=== PATIENT | male | born 1975 | race Caucasian/White ===

== ENCOUNTER 2020-11-08 11:40 | Inpatient (IN) | payer OTHER, MEDICAID, SELFPAY ==
[2020-11-08] VITALS (13 sets, daily range): BP systolic 107–135; BP diastolic 70–88; PULSE 57–84; RESP 10–28; TEMP 35.7–36.9; O2SAT 88–96; BMI 35.9
--- NOTE | 2020-11-08 12:13 | DI.RAD.S_ITS ---
PROCEDURE: XR CHEST 1V INDICATIONS: flu-like symptoms TECHNIQUE: One view of the chest was acquired. COMPARISON: [facility], CR, XR CHEST 1VW, 07/05/2015, 9:18. [facility], CR, XR CHEST 1VW (PORTABLE), 07/07/2015, 5:34. [facility], CR, XR CHEST 1 VIEW, 11/14/2018, 19:31. FINDINGS: Surgical changes and devices: None. Lungs and pleura: Subtle peripheral infiltrates bilaterally. No pleural effusions or pneumothorax. Mediastinum: Mediastinal contours appear normal. Heart size is normal. Bones and chest wall: No suspicious bony lesions. Overlying soft tissues appear unremarkable. IMPRESSION: Subtle peripheral infiltrates bilaterally suspicious for atypical pneumonia. Dictated by: Laurie Zelaya M.D. on 11/08/2020 at 12:39 Approved by: Laurie Zelaya M.D. on 11/08/2020 at 12:41
[2020-11-08 12:48] LABS: COVID19 -Nasal RAPID POSITIVE (Negative)
[2020-11-08 13:14] LABS: Add Manual Diff / Slide Review NO; Basophils Absolute Auto 0 /uL (0-100); Basophils Percent Auto 0.7 % (0-2); Eosinophils Absolute Auto 0 /uL (0-450); Eosinophils Percent Auto 0.5 % (2-4); Hemoglobin 15.1 g/dL (13.5-17.5); Lymphocytes Absolute Auto 1000 /uL (1100-4500); Mean Corpuscular HGB Conc 34.2 % (30-36); Mean Corpuscular Hemoglobin 28.9 PG (26-34); Mean Corpuscular Volume 84.6 fL (80-100); Monocytes Absolute Auto 300 /uL (0-900); Monocytes Percent Auto 11.3 % (3-14); Neutrophils Absolute Auto 1100 /uL (1500-7000); Neutrophils Percent Auto 47.5 % (50-75); Platelet Count 116 X10^3/uL (150-400); Red Blood Cell Count 5.21 X10^6/uL (4.5-5.9); Red Cell Distribution Width 13.6 % (11.6-14.8); White Blood Cell Count 2.4 X10^3/uL (4.5-11.0)
[2020-11-08] MEDS: REMDESIVIR 200 MG in SODIUM CHLORIDE 0.9% 210 ML 250 ML IV (13:24)
[2020-11-08] MEDS: DEXAMETHASONE 10 MG/ML VIAL 6 MG IV (13:25)
[2020-11-08 13:29] LABS: D Dimer 290 ng/mL (<230)
[2020-11-08 13:31] LABS: Creatine Kinase 443 U/L (55-170); Lactate (Lactic Acid) 0.7 mmol/L (0.7-2.1)
[2020-11-08 13:33] LABS: Alanine Aminotransferase 27 IU/L (<50); Albumin 3.9 g/dL (3.5-5.0); Alkaline Phosphatase 98 U/L (38-126); Aspartate Aminotransferase 87 IU/L (17-59); BUN Creatinine Ratio 9.7 (6-22); Bilirubin Total 0.7 mg/dL (0.2-1.3); Blood Urea Nitrogen 19 mg/dL (9-20); C-Reactive Protein Quant 2.1 mg/dL (<1.0); Calcium 8.1 mg/dL (8.4-10.2); Carbon Dioxide 25 mmol/L (22-32); Chloride 105 mmol/L (98-107); Creatine Kinase 438 U/L (55-170); Globulin 3.9 g/dL (1.7-4.1); Glucose 94 mg/dL (70-100); HEMOLYSIS < 15 (0-50); Lactate Dehydrogenase 595 U/L (313-618); Potassium 3.9 mmol/L (3.4-5.1); Sodium 137 mmol/L (137-145); Total Protein 7.8 g/dL (6.3-8.2)
[2020-11-08 13:34] LABS: INR 1.1 (0.9-1.3); Prothrombin Time 12.8 SECONDS (10.1-12.7)
[2020-11-08 13:37] LABS: PTT Partial Thromboplastin Tim 37 SECONDS (26.4-36.2)
[2020-11-08 13:42] LABS: Troponin I < 0.012 ng/mL (0.01-0.034)
[2020-11-08 13:46] LABS: CKMB % Relative Index 0.8 % (1.5-5.0); Creatine Kinase MB 3.62 ng/mL (<2.37)
[2020-11-08] MEDS: ACETAMINOPHEN 325 MG TABLET 650 MG PO (13:56)
[2020-11-08 14:05] LABS: Ferritin 159 ng/mL (18-464)
--- NOTE | 2020-11-08 15:25 | ED_ITS ---
HPI - URI/Sore Throat <Minoo Kaur PA-C - Last Filed: 11/08/20 20:28> General Chief Complaint: Upper Respiratory Symptoms Stated Complaint: sob/chills/headach/dizzy/diarrhea x7 days Time Seen by Provider: 11/08/20 12:00 Source: patient Mode of arrival: Ambulatory Limitations: no limitations History of Present Illness HPI Narrative: 44-year-old male without PMH, COVID unvaccinated who presents to the clinic complaining of 7 day history of cough, chills, diarrhea, chest congestion, headache, dizziness, decreased taste, mild shortness of breath, and occasional chest pain with coughing. Denies any known positive sick exposures. Overall states that symptoms have not worsened, however have not improved. at home has similar symptoms. Denies chest pain, shortness of breath, palpitations, difficulty breathing, vomiting, or abdominal pain. Related Data Home Medications Medication Instructions Recorded Confirmed dextroamphetamine-amphetamine ER 20 mg PO DAILY 11/08/20 11/08/20 20 mg 24hr capsule,extend release aripiprazole 15 mg tablet (Abilify) 15 mg PO DAILY 11/09/20 11/09/20 buprenorphine 12 mg-naloxone 3 mg 1 film BUCCAL BID 11/09/20 11/09/20 sublingual film (Suboxone) buprenorphine 12 mg-naloxone 3 mg 1 film SUBLINGUAL DAILY 11/09/20 11/09/20 sublingual film (Suboxone) citalopram 40 mg tablet 40 mg PO DAILY 11/09/20 11/09/20 clonazepam 0.5 mg tablet 0.25 mg PO BID 11/09/20 11/09/20 hydroxyzine HCl 50 mg tablet 50 mg PO TID PRN 11/09/20 11/09/20 mirtazapine 45 mg tablet 45 mg PO BEDTIME 11/09/20 11/09/20 prazosin 1 mg capsule 1 mg PO BEDTIME 11/09/20 11/09/20 Review of Systems <Minoo Kaur PA-C - Last Filed: 11/08/20 20:28> Review of Systems Narrative: General: denies fever, reports chills Head/Neck: Reports headache, denies neck pain Eyes: denies visual changes, eye pain Cardio: denies chest pain, palpitations Respiratory: Reports shortness of breath, reports cough GI: denies abdominal pain, nausea, vomiting, or reports diarrhea : denies dysuria, hematuria MSK: denies joint pain, muscle weakness Skin: denies rash, itching Neuro: denies numbness, tingling Patient History <Minoo Kaur PA-C - Last Filed: 11/08/20 20:28> Medical History (Updated 11/08/20 @ 18:34 by Jewels Jaeger MD) ADHD Depression Opioid use disorder Psychiatric disorder Social History household members: spouse Smoking Status: Never smoker Smoking Status: Never smoker tobacco type: smokeless tobacco Substance Use Type: does not use Exam <Minoo Kaur PA-C - Last Filed: 11/08/20 20:28> Narrative Exam Narrative: Independently reviewed vitals signs and nursing notes. Initially hypoxic with 88% on room air, improved to >94% with 2L O2. General: Awake, alert, nontoxic, no cardiorespiratory distress Head/Neck: Atraumatic, neck full range of motion Eyes: EOMI, conjunctiva normal Nose: nares patent, no rhinorrhea Mouth/Throat: moist mucus membranes, posterior pharynx normal, no oral lesions Cardio: Regular rate and rhythm, no peripheral edema Respiratory: CTAB unlabored without wheezing, stridor, or rales. No retractions. GI: Abdomen soft, nontender MSK: Moves all extremities, neurovascularly intact Skin: Normal capillary refill, no rash Neuro: Normal speech and cognition, normal gait Initial Vital Signs Initial Vital Signs: Vital Signs Temperature 98.4 F 11/08/20 12:07 Pulse Rate 79 11/08/20 12:07 Respiratory Rate 11/08/20 12:07 Blood Pressure 117/80 11/08/20 12:07 Pulse Oximetry 88 L 11/08/20 12:07 <Darleen Davalos DO - Last Filed: 11/13/20 02:21> Initial Vital Signs Initial Vital Signs: Vital Signs Temperature 98.4 F 11/08/20 12:07 Pulse Rate 79 11/08/20 12:07 Respiratory Rate 20 11/08/20 12:07 Blood Pressure 117/80 11/08/20 12:07 Pulse Oximetry 88 L 11/08/20 12:07 Course <Minoo Kaur PA-C - Last Filed: 11/08/20 20:28> Orders Ordered: Discontinued Medications Acetaminophen (Acetaminophen 325 Mg Tablet) 650 mg PO NOW ONE Stop: 11/08/20 13:52 Last Admin: 11/08/20 13:56 Dose: 650 mg Documented by: ANGELICA Acetaminophen (Acetaminophen 325 Mg Tablet) 650 mg PO Q6HR PRN PRN Reason: Fever/Mild Pain (1-3) Last Admin: 11/09/20 03:01 Dose: 650 mg Documented by: CLAUDIA Al Hydrox/Mg Hydrox/Simethicone (Mag Hydrox/Alum/Simeth 30 Ml Udc) 30 ml PO Q6HR PRN PRN Reason: Dyspepsia Aripiprazole (Aripiprazole 10 Mg Tablet) 15 mg PO DAILY [facility] Last Admin: 11/11/20 07:52 Dose: 15 mg Documented by: Admin: 11/10/20 09:07 Dose: 15 mg Documented by: Admin: 11/09/20 08:34 Dose: 15 mg Documented by: ADOLPH Bisacodyl (Bisacodyl 10 Mg Supp) 10 mg NC DAILY PRN PRN Reason: Constipation Buprenorphine/Naloxone (Buprenorphine/Naloxone 8mg/2mg 1 Tab) 1 tab SL DAILY [facility] Last Admin: 11/11/20 07:52 Dose: 1 tab Documented by: Admin: 11/10/20 09:07 Dose: 1 tab Documented by: Admin: 11/09/20 10:00 Dose: 1 tab Documented by: ADOLPH Buprenorphine/Naloxone (Buprenorphine/Naloxone 8mg/2mg 1 Tab) 2 tab SL 1800 [facility] Last Admin: 11/10/20 17:03 Dose: 2 tab Documented by: Admin: 11/09/20 17:46 Dose: 2 tab Documented by: SABRINA Calcium Carbonate (Calcium Carbonate 500 Mg Tab) 1,000 mg PO Q4HR PRN PRN Reason: Dyspepsia Citalopram Hydrobromide (Citalopram 10 Mg Tablet) 40 mg PO DAILY [facility] Last Admin: 11/11/20 07:52 Dose: 40 mg Documented by: Admin: 11/10/20 09:08 Dose: 40 mg Documented by: Admin: 11/09/20 08:34 Dose: 40 mg Documented by: ADOLPH Clonazepam (Clonazepam 0.5 Mg Tablet) 0.5 mg PO BID [facility] Last Admin: 11/11/20 07:53 Dose: 0.5 mg Documented by: Admin: 11/10/20 21:08 Dose: 0.5 mg Documented by: Admin: 11/10/20 09:08 Dose: 0.5 mg Documented by: Admin: 11/09/20 20:56 Dose: 0.5 mg Documented by: Admin: 11/09/20 08:34 Dose: 0.5 mg Documented by: Admin: 11/08/20 20:56 Dose: 0.5 mg Documented by: ANDREW Dexamethasone (Dexamethasone 10 Mg/Ml Vial) 6 mg IV NOW ONE Stop: 11/08/20 12:54 Last Admin: 11/08/20 13:25 Dose: 6 mg Documented by: ANGELICA Dexamethasone (Dexamethasone 10 Mg/Ml Vial) 6 mg IV DAILY [facility] Last Admin: 11/11/20 10:07 Dose: Not Given Documented by: Admin: 11/10/20 09:08 Dose: 6 mg Documented by: Admin: 11/09/20 08:34 Dose: 6 mg Documented by: ADOLPH Docusate Sodium (Docusate 100 Mg Capsule) 100 mg PO BID [facility] Last Admin: 11/11/20 07:52 Dose: 100 mg Documented by: Admin: 11/10/20 21:08 Dose: 100 mg Documented by: Admin: 11/10/20 09:08 Dose: 100 mg Documented by: Admin: 11/09/20 20:56 Dose: 100 mg Documented by: Admin: 11/09/20 08:34 Dose: 100 mg Documented by: Admin: 11/08/20 20:56 Dose: 100 mg Documented by: ANDREW Enoxaparin Sodium (Enoxaparin 40 Mg/0.4 Ml Syringe) 40 mg SUBCUT BID [facility] Last Admin: 11/09/20 08:35 Dose: 40 mg Documented by: ADOLPH Enoxaparin Sodium (Enoxaparin 40 Mg/0.4 Ml Syringe) 40 mg SUBCUT DAILY [facility] Last Admin: 11/11/20 07:52 Dose: 40 mg Documented by: Admin: 11/10/20 09:09 Dose: 40 mg Documented by: ADOLPH Hydroxyzine Pamoate (Hydroxyzine Pamoate 25 Mg Capsule) 50 mg PO Q6HR PRN PRN Reason: Nausea Remdesivir 200 mg/ Sodium (Chloride) 250 mls @ 250 mls/hr IV NOW ONE Stop: 11/08/20 12:54 Last Infusion: 11/08/20 14:55 Dose: 0 mls/hr Documented by: Admin: 11/08/20 13:24 Dose: 250 mls/hr Documented by: ANGELICA Remdesivir 100 mg/ Sodium (Chloride) 250 mls @ 250 mls/hr IV DAILY [facility] Stop: 11/16/20 17:45 Last Admin: 11/11/20 10:05 Dose: Not Given Documented by: Infusion: 11/10/20 10:09 Dose: 250 mls/hr Documented by: Admin: 11/10/20 09:09 Dose: 250 mls/hr Documented by: Infusion: 11/09/20 20:49 Dose: 0 mls/hr Documented by: Admin: 11/09/20 14:40 Dose: 250 mls/hr Documented by: ADOLPH Sodium Chloride (Normal Saline 0.9%) 250 mls @ 21 mls/hr IV Q24H PRN PRN Reason: Flush Mirtazapine (Mirtazapine 15 Mg Tablet) 45 mg PO BEDTIME [facility] Last Admin: 11/10/20 21:08 Dose: 45 mg Documented by: Admin: 11/09/20 20:56 Dose: 45 mg Documented by: Admin: 11/08/20 20:57 Dose: 45 mg Documented by: ANDREW Naloxone HCl (Naloxone 0.4 Mg/Ml Vial) 0.2 mg IV Q2MIN PRN PRN Reason: Opiate Reversal Ondansetron HCl (Ondansetron 4 Mg/2 Ml Inj) 4 mg IV Q8HR PRN PRN Reason: Nausea And Vomiting Pantoprazole Sodium (Pantoprazole Dr 20 Mg Tablet) 20 mg PO 0600 [facility] Last Admin: 11/11/20 05:47 Dose: 20 mg Documented by: Admin: 11/10/20 05:30 Dose: 20 mg Documented by: Admin: 11/09/20 06:35 Dose: 20 mg Documented by: CLAUDIA Prazosin HCl (Prazosin 1 Mg Capsule) 1 mg PO BEDTIME [facility] Last Admin: 11/10/20 21:08 Dose: 1 mg Documented by: Admin: 11/09/20 21:19 Dose: Not Given Documented by: Admin: 11/08/20 20:59 Dose: 1 mg Documented by: ANDREW Sodium Chloride (Sodium Chloride 0.9% Flush) 10 ml IV PRN PRN PRN Reason: Flush Sodium Chloride (Sodium Chloride 0.9% Flush) 10 ml IV BID [facility] Last Admin: 11/11/20 07:55 Dose: 10 ml Documented by: Admin: 11/10/20 21:08 Dose: 10 ml Documented by: Admin: 11/10/20 09:10 Dose: 10 ml Documented by: ADOLPH Vital Signs Vital signs: Vital Signs - 8 hr 11/08/20 13:48 11/08/20 14:00 11/08/20 14:01 Pulse Rate 73 77 84 Respiratory Rate Blood Pressure 109/75 Pulse Oximetry 92 91 91 11/08/20 14:30 11/08/20 15:00 Pulse Rate 66 65 Respiratory Rate 15 10 L Blood Pressure 113/72 Pulse Oximetry 93 92 <Darleen Davalos DO - Last Filed: 11/13/20 02:21> Orders Ordered: Discontinued Medications Acetaminophen (Acetaminophen 325 Mg Tablet) 650 mg PO NOW ONE Stop: 11/08/20 13:52 Last Admin: 11/08/20 13:56 Dose: 650 mg Documented by: ANGELICA Acetaminophen (Acetaminophen 325 Mg Tablet) 650 mg PO Q6HR PRN PRN Reason: Fever/Mild Pain (1-3) Last Admin: 11/09/20 03:01 Dose: 650 mg Documented by: CLAUDIA Al Hydrox/Mg Hydrox/Simethicone (Mag Hydrox/Alum/Simeth 30 Ml Udc) 30 ml PO Q6HR PRN PRN Reason: Dyspepsia Aripiprazole (Aripiprazole 10 Mg Tablet) 15 mg PO DAILY [facility] Last Admin: 11/11/20 07:52 Dose: 15 mg Documented by: Admin: 11/10/20 09:07 Dose: 15 mg Documented by: Admin: 11/09/20 08:34 Dose: 15 mg Documented by: ADOLPH Bisacodyl (Bisacodyl 10 Mg Supp) 10 mg NC DAILY PRN PRN Reason: Constipation Buprenorphine/Naloxone (Buprenorphine/Naloxone 8mg/2mg 1 Tab) 1 tab SL DAILY [facility] Last Admin: 11/11/20 07:52 Dose: 1 tab Documented by: Admin: 11/10/20 09:07 Dose: 1 tab Documented by: Admin: 11/09/20 10:00 Dose: 1 tab Documented by: ADOLPH Buprenorphine/Naloxone (Buprenorphine/Naloxone 8mg/2mg 1 Tab) 2 tab SL 1800 [facility] Last Admin: 11/10/20 17:03 Dose: 2 tab Documented by: Admin: 11/09/20 17:46 Dose: 2 tab Documented by: SABRINA Calcium Carbonate (Calcium Carbonate 500 Mg Tab) 1,000 mg PO Q4HR PRN PRN Reason: Dyspepsia Citalopram Hydrobromide (Citalopram 10 Mg Tablet) 40 mg PO DAILY [facility] Last Admin: 11/11/20 07:52 Dose: 40 mg Documented by: Admin: 11/10/20 09:08 Dose: 40 mg Documented by: Admin: 11/09/20 08:34 Dose: 40 mg Documented by: ADOLPH Clonazepam (Clonazepam 0.5 Mg Tablet) 0.5 mg PO BID [facility] Last Admin: 11/11/20 07:53 Dose: 0.5 mg Documented by: Admin: 11/10/20 21:08 Dose: 0.5 mg Documented by: Admin: 11/10/20 09:08 Dose: 0.5 mg Documented by: Admin: 11/09/20 20:56 Dose: 0.5 mg Documented by: Admin: 11/09/20 08:34 Dose: 0.5 mg Documented by: Admin: 11/08/20 20:56 Dose: 0.5 mg Documented by: ANDREW Dexamethasone (Dexamethasone 10 Mg/Ml Vial) 6 mg IV NOW ONE Stop: 11/08/20 12:54 Last Admin: 11/08/20 13:25 Dose: 6 mg Documented by: ANGELICA Dexamethasone (Dexamethasone 10 Mg/Ml Vial) 6 mg IV DAILY [facility] Last Admin: 11/11/20 10:07 Dose: Not Given Documented by: Admin: 11/10/20 09:08 Dose: 6 mg Documented by: Admin: 11/09/20 08:34 Dose: 6 mg Documented by: ADOLPH Docusate Sodium (Docusate 100 Mg Capsule) 100 mg PO BID [facility] Last Admin: 11/11/20 07:52 Dose: 100 mg Documented by: Admin: 11/10/20 21:08 Dose: 100 mg Documented by: Admin: 11/10/20 09:08 Dose: 100 mg Documented by: Admin: 11/09/20 20:56 Dose: 100 mg Documented by: Admin: 11/09/20 08:34 Dose: 100 mg Documented by: Admin: 11/08/20 20:56 Dose: 100 mg Documented by: ANDREW Enoxaparin Sodium (Enoxaparin 40 Mg/0.4 Ml Syringe) 40 mg SUBCUT BID [facility] Last Admin: 11/09/20 08:35 Dose: 40 mg Documented by: ADOLPH Enoxaparin Sodium (Enoxaparin 40 Mg/0.4 Ml Syringe) 40 mg SUBCUT DAILY [facility] Last Admin: 11/11/20 07:52 Dose: 40 mg Documented by: Admin: 11/10/20 09:09 Dose: 40 mg Documented by: ADOLPH Hydroxyzine Pamoate (Hydroxyzine Pamoate 25 Mg Capsule) 50 mg PO Q6HR PRN PRN Reason: Nausea Remdesivir 200 mg/ Sodium (Chloride) 250 mls @ 250 mls/hr IV NOW ONE Stop: 11/08/20 12:54 Last Infusion: 11/08/20 14:55 Dose: 0 mls/hr Documented by: Admin: 11/08/20 13:24 Dose: 250 mls/hr Documented by: ANGELICA Remdesivir 100 mg/ Sodium (Chloride) 250 mls @ 250 mls/hr IV DAILY [facility] Stop: 11/16/20 17:45 Last Admin: 11/11/20 10:05 Dose: Not Given Documented by: Infusion: 11/10/20 10:09 Dose: 250 mls/hr Documented by: Admin: 11/10/20 09:09 Dose: 250 mls/hr Documented by: Infusion: 11/09/20 20:49 Dose: 0 mls/hr Documented by: Admin: 11/09/20 14:40 Dose: 250 mls/hr Documented by: ADOLPH Sodium Chloride (Normal Saline 0.9%) 250 mls @ 21 mls/hr IV Q24H PRN PRN Reason: Flush Mirtazapine (Mirtazapine 15 Mg Tablet) 45 mg PO BEDTIME [facility] Last Admin: 11/10/20 21:08 Dose: 45 mg Documented by: Admin: 11/09/20 20:56 Dose: 45 mg Documented by: Admin: 11/08/20 20:57 Dose: 45 mg Documented by: ANDREW Naloxone HCl (Naloxone 0.4 Mg/Ml Vial) 0.2 mg IV Q2MIN PRN PRN Reason: Opiate Reversal Ondansetron HCl (Ondansetron 4 Mg/2 Ml Inj) 4 mg IV Q8HR PRN PRN Reason: Nausea And Vomiting Pantoprazole Sodium (Pantoprazole Dr 20 Mg Tablet) 20 mg PO 0600 [facility] Last Admin: 11/11/20 05:47 Dose: 20 mg Documented by: Admin: 11/10/20 05:30 Dose: 20 mg Documented by: Admin: 11/09/20 06:35 Dose: 20 mg Documented by: CLAUDIA Prazosin HCl (Prazosin 1 Mg Capsule) 1 mg PO BEDTIME [facility] Last Admin: 11/10/20 21:08 Dose: 1 mg Documented by: Admin: 11/09/20 21:19 Dose: Not Given Documented by: Admin: 11/08/20 20:59 Dose: 1 mg Documented by: ANDREW Sodium Chloride (Sodium Chloride 0.9% Flush) 10 ml IV PRN PRN PRN Reason: Flush Sodium Chloride (Sodium Chloride 0.9% Flush) 10 ml IV BID [facility] Last Admin: 11/11/20 07:55 Dose: 10 ml Documented by: Admin: 11/10/20 21:08 Dose: 10 ml Documented by: Admin: 11/10/20 09:10 Dose: 10 ml Documented by: ADOLPH Vital Signs Vital signs: Vital Signs - 8 hr 11/08/20 13:48 11/08/20 14:00 11/08/20 14:01 Pulse Rate 73 77 84 Respiratory Rate Blood Pressure 109/75 Pulse Oximetry 92 91 91 11/08/20 14:30 11/08/20 15:00 Pulse Rate 66 65 Respiratory Rate 15 10 L Blood Pressure 113/72 Pulse Oximetry 93 92 MDM - URI/Sore Throat <Minoo Kaur PA-C - Last Filed: 11/08/20 20:28> Lab Data Result diagrams: 11/11/20 05:06 11/11/20 05:06 Labs: Lab Results 11/08/20 11/08/20 11/08/20 Range/Units 12:32 13:05 13:05 WBC 2.4 L (4.5-11.0) X10^3/uL RBC 5.21 (4.5-5.9) X10^6/uL Hgb 15.1 (13.5-17.5) g/dL Hct 44.0 (41-53) % MCV 84.6 (80-100) fL MCH 28.9 (26-34) PG MCHC 34.2 (30-36) % RDW 13.6 (11.6-14.8) % Plt Count 116 L (150-400) X10^3/uL Neut % (Auto) 47.5 L (50-75) % Lymph % (Auto) 40.0 (25-40) % Emery % (Auto) 11.3 (3-14) % Eos % (Auto) 0.5 L (2-4) % Baso % (Auto) 0.7 (0-2) % Neut # (Auto) 1100 L (6216-5773) /uL Lymph # (Auto) 1000 L (1747-3254) /uL Emery # (Auto) 300 (0-900) /uL Eos # (Auto) 0 (0-450) /uL Baso # (Auto) 0 (0-100) /uL PT (10.1-12.7) SECONDS INR (0.9-1.3) APTT (26.4-36.2) SECONDS D-Dimer 290 H (<230) ng/mL Sodium (137-145) mmol/L Potassium (3.4-5.1) mmol/L Chloride (98-107) mmol/L Carbon Dioxide (22-32) mmol/L BUN (9-20) mg/dL Creatinine (0.66-1.25) mg/dL Estimated GFR (>60) mL/min BUN/Creatinine Ratio (6-22) Glucose (70-100) mg/dL Lactate (0.7-2.1) mmol/L Calcium (8.4-10.2) mg/dL Ferritin (18-464) ng/mL Total Bilirubin (0.2-1.3) mg/dL AST (17-59) IU/L ALT (<50) IU/L Alkaline Phosphatase (38-126) U/L Lactate Dehydrogenase (313-618) U/L Total Creatine Kinase (55-170) U/L CK-MB (CK-2) (<2.37) ng/mL CK-MB (CK-2) Rel Index (1.5-5.0) % Troponin I (0.01-0.034) ng/mL C-Reactive Protein (<1.0) mg/dL Total Protein (6.3-8.2) g/dL Albumin (3.5-5.0) g/dL Globulin (1.7-4.1) g/dL Albumin/Globulin Ratio (1.0-2.8) Procalcitonin (<0.5) ng/mL SARS-CoV-2 (PCR) Positive H (Negative) 11/08/20 11/08/20 11/08/20 Range/Units 13:05 13:05 13:05 WBC (4.5-11.0) X10^3/uL RBC (4.5-5.9) X10^6/uL Hgb (13.5-17.5) g/dL Hct (41-53) % MCV (80-100) fL MCH (26-34) PG MCHC (30-36) % RDW (11.6-14.8) % Plt Count (150-400) X10^3/uL Neut % (Auto) (50-75) % Lymph % (Auto) (25-40) % Emery % (Auto) (3-14) % Eos % (Auto) (2-4) % Baso % (Auto) (0-2) % Neut # (Auto) (3334-2154) /uL Lymph # (Auto) (4525-1633) /uL Emery # (Auto) (0-900) /uL Eos # (Auto) (0-450) /uL Baso # (Auto) (0-100) /uL PT (10.1-12.7) SECONDS INR (0.9-1.3) APTT (26.4-36.2) SECONDS D-Dimer (<230) ng/mL Sodium 137 (137-145) mmol/L Potassium 3.9 (3.4-5.1) mmol/L Chloride 105 (98-107) mmol/L Carbon Dioxide 25 (22-32) mmol/L BUN 19 (9-20) mg/dL Creatinine 1.96 H (0.66-1.25) mg/dL Estimated GFR 37.0 L (>60) mL/min BUN/Creatinine Ratio 9.7 (6-22) Glucose 94 (70-100) mg/dL Lactate 0.7 (0.7-2.1) mmol/L Calcium 8.1 L (8.4-10.2) mg/dL Ferritin 159 (18-464) ng/mL Total Bilirubin 0.7 (0.2-1.3) mg/dL AST 87 H (17-59) IU/L ALT 27 (<50) IU/L Alkaline Phosphatase 98 (38-126) U/L Lactate Dehydrogenase 595 (313-618) U/L Total Creatine Kinase 438 H (55-170) U/L CK-MB (CK-2) 3.62 H (<2.37) ng/mL CK-MB (CK-2) Rel Index 0.8 L (1.5-5.0) % Troponin I < 0.012 (0.01-0.034) ng/mL C-Reactive Protein 2.1 H (<1.0) mg/dL Total Protein 7.8 (6.3-8.2) g/dL Albumin 3.9 (3.5-5.0) g/dL Globulin 3.9 (1.7-4.1) g/dL Albumin/Globulin Ratio 1.0 (1.0-2.8) Procalcitonin 0.10 (<0.5) ng/mL SARS-CoV-2 (PCR) (Negative) 11/08/20 11/08/20 Range/Units 13:05 13:05 WBC (4.5-11.0) X10^3/uL RBC (4.5-5.9) X10^6/uL Hgb (13.5-17.5) g/dL Hct (41-53) % MCV (80-100) fL MCH (26-34) PG MCHC (30-36) % RDW (11.6-14.8) % Plt Count (150-400) X10^3/uL Neut % (Auto) (50-75) % Lymph % (Auto) (25-40) % Emery % (Auto) (3-14) % Eos % (Auto) (2-4) % Baso % (Auto) (0-2) % Neut # (Auto) (3962-6188) /uL Lymph # (Auto) (6948-5142) /uL Emery # (Auto) (0-900) /uL Eos # (Auto) (0-450) /uL Baso # (Auto) (0-100) /uL PT 12.8 H (10.1-12.7) SECONDS INR 1.1 (0.9-1.3) APTT 37 H (26.4-36.2) SECONDS D-Dimer (<230) ng/mL Sodium (137-145) mmol/L Potassium (3.4-5.1) mmol/L Chloride (98-107) mmol/L Carbon Dioxide (22-32) mmol/L BUN (9-20) mg/dL Creatinine (0.66-1.25) mg/dL Estimated GFR (>60) mL/min BUN/Creatinine Ratio (6-22) Glucose (70-100) mg/dL Lactate (0.7-2.1) mmol/L Calcium (8.4-10.2) mg/dL Ferritin (18-464) ng/mL Total Bilirubin (0.2-1.3) mg/dL AST (17-59) IU/L ALT (<50) IU/L Alkaline Phosphatase (38-126) U/L Lactate Dehydrogenase (313-618) U/L Total Creatine Kinase 443 H (55-170) U/L CK-MB (CK-2) (<2.37) ng/mL CK-MB (CK-2) Rel Index (1.5-5.0) % Troponin I (0.01-0.034) ng/mL C-Reactive Protein (<1.0) mg/dL Total Protein (6.3-8.2) g/dL Albumin (3.5-5.0) g/dL Globulin (1.7-4.1) g/dL Albumin/Globulin Ratio (1.0-2.8) Procalcitonin (<0.5) ng/mL SARS-CoV-2 (PCR) (Negative) Imaging Data Chest x-ray: Radiologist's Impression: PROCEDURE: XR CHEST 1V INDICATIONS: flu-like symptoms TECHNIQUE: One view of the chest was acquired. COMPARISON: [facility], CR, XR CHEST 1VW, 07/05/2015, 9:18. [facility], CR, XR CHEST 1VW (PORTABLE), 07/07/2015, 5:34. [facility], CR, XR CHEST 1 VIEW, 11/14/2018, 19:31. FINDINGS: Surgical changes and devices: None. Lungs and pleura: Subtle peripheral infiltrates bilaterally. No pleural effusions or pneumothorax. Mediastinum: Mediastinal contours appear normal. Heart size is normal. Bones and chest wall: No suspicious bony lesions. Overlying soft tissues appear unremarkable. IMPRESSION: Subtle peripheral infiltrates bilaterally suspicious for atypical pneumonia. Dictated by: Laurie Zelaya M.D. on 11/08/2020 at 12:39 Approved by: Laurie Zelaya M.D. on 11/08/2020 at 12:41 ECG Data Interpretation: EKG independently reviewed by myself at 1320 reveals normal sinus rhythm at 67bpm with regular axis and intervals. No STEMI, ST segment changes, arrhythmia, or acute ischemic changes. MDM Narrative Medical decision making narrative: 44-year-old male without past medical history who is positive (+) for COVID-19 on day 7 of illness. Hypoxic to 88% without respiratory distress which is improved to greater than 94% on 2 L of oxygen. Mi ld leukopenia, thrombocytopenia, elevated creatinine 1.96 Remdesivir and Decadron started in the ED today. Consult to the hospitalist, Dr. Jaeger. Agrees with evaluation and plan. Agrees to admit patient. Patient was informed of lab and imaging results, diagnoses, consulting physicians, and treatment plan. I have spoken with the patient in regard to admission, patient understands and agrees. I have communicated the patient's evaluation and treatment plan to the admitting physician who agrees with admission. All questions answered at this time. <Darleen Davalos, - Last Filed: 11/13/20 02:21> Lab Data Labs: Lab Results 11/08/20 11/08/20 11/08/20 Range/Units 12:32 13:05 13:05 WBC 2.4 L (4.5-11.0) X10^3/uL RBC 5.21 (4.5-5.9) X10^6/uL Hgb 15.1 (13.5-17.5) g/dL Hct 44.0 (41-53) % MCV 84.6 (80-100) fL MCH 28.9 (26-34) PG MCHC 34.2 (30-36) % RDW 13.6 (11.6-14.8) % Plt Count 116 L (150-400) X10^3/uL Neut % (Auto) 47.5 L (50-75) % Lymph % (Auto) 40.0 (25-40) % Emery % (Auto) 11.3 (3-14) % Eos % (Auto) 0.5 L (2-4) % Baso % (Auto) 0.7 (0-2) % Neut # (Auto) 1100 L (3664-2223) /uL Lymph # (Auto) 1000 L (0099-0754) /uL Emery # (Auto) 300 (0-900) /uL Eos # (Auto) 0 (0-450) /uL Baso # (Auto) 0 (0-100) /uL PT (10.1-12.7) SECONDS INR (0.9-1.3) APTT (26.4-36.2) SECONDS D-Dimer 290 H (<230) ng/mL Sodium (137-145) mmol/L Potassium (3.4-5.1) mmol/L Chloride (98-107) mmol/L Carbon Dioxide (22-32) mmol/L BUN (9-20) mg/dL Creatinine (0.66-1.25) mg/dL Estimated GFR (>60) mL/min BUN/Creatinine Ratio (6-22) Glucose (70-100) mg/dL Lactate (0.7-2.1) mmol/L Calcium (8.4-10.2) mg/dL Ferritin (18-464) ng/mL Total Bilirubin (0.2-1.3) mg/dL AST (17-59) IU/L ALT (<50) IU/L Alkaline Phosphatase (38-126) U/L Lactate Dehydrogenase (313-618) U/L Total Creatine Kinase (55-170) U/L CK-MB (CK-2) (<2.37) ng/mL CK-MB (CK-2) Rel Index (1.5-5.0) % Troponin I (0.01-0.034) ng/mL C-Reactive Protein (<1.0) mg/dL Total Protein (6.3-8.2) g/dL Albumin (3.5-5.0) g/dL Globulin (1.7-4.1) g/dL Albumin/Globulin Ratio (1.0-2.8) Procalcitonin (<0.5) ng/mL SARS-CoV-2 (PCR) Positive H (Negative) 11/08/20 11/08/20 11/08/20 Range/Units 13:05 13:05 13:05 WBC (4.5-11.0) X10^3/uL RBC (4.5-5.9) X10^6/uL Hgb (13.5-17.5) g/dL Hct (41-53) % MCV (80-100) fL MCH (26-34) PG MCHC (30-36) % RDW (11.6-14.8) % Plt Count (150-400) X10^3/uL Neut % (Auto) (50-75) % Lymph % (Auto) (25-40) % Emery % (Auto) (3-14) % Eos % (Auto) (2-4) % Baso % (Auto) (0-2) % Neut # (Auto) (7244-3892) /uL Lymph # (Auto) (5515-7502) /uL Emery # (Auto) (0-900) /uL Eos # (Auto) (0-450) /uL Baso # (Auto) (0-100) /uL PT (10.1-12.7) SECONDS INR (0.9-1.3) APTT (26.4-36.2) SECONDS D-Dimer (<230) ng/mL Sodium 137 (137-145) mmol/L Potassium 3.9 (3.4-5.1) mmol/L Chloride 105 (98-107) mmol/L Carbon Dioxide 25 (22-32) mmol/L BUN 19 (9-20) mg/dL Creatinine 1.96 H (0.66-1.25) mg/dL Estimated GFR 37.0 L (>60) mL/min BUN/Creatinine Ratio 9.7 (6-22) Glucose 94 (70-100) mg/dL Lactate 0.7 (0.7-2.1) mmol/L Calcium 8.1 L (8.4-10.2) mg/dL Ferritin 159 (18-464) ng/mL Total Bilirubin 0.7 (0.2-1.3) mg/dL AST 87 H (17-59) IU/L ALT 27 (<50) IU/L Alkaline Phosphatase 98 (38-126) U/L Lactate Dehydrogenase 595 (313-618) U/L Total Creatine Kinase 438 H (55-170) U/L CK-MB (CK-2) 3.62 H (<2.37) ng/mL CK-MB (CK-2) Rel Index 0.8 L (1.5-5.0) % Troponin I < 0.012 (0.01-0.034) ng/mL C-Reactive Protein 2.1 H (<1.0) mg/dL Total Protein 7.8 (6.3-8.2) g/dL Albumin 3.9 (3.5-5.0) g/dL Globulin 3.9 (1.7-4.1) g/dL Albumin/Globulin Ratio 1.0 (1.0-2.8) Procalcitonin 0.10 (<0.5) ng/mL SARS-CoV-2 (PCR) (Negative) 11/08/20 11/08/20 Range/Units 13:05 13:05 WBC (4.5-11.0) X10^3/uL RBC (4.5-5.9) X10^6/uL Hgb (13.5-17.5) g/dL Hct (41-53) % MCV (80-100) fL MCH (26-34) PG MCHC (30-36) % RDW (11.6-14.8) % Plt Count (150-400) X10^3/uL Neut % (Auto) (50-75) % Lymph % (Auto) (25-40) % [place] % (Auto) (3-14) % Eos % (Auto) (2-4) % Baso % (Auto) (0-2) % Neut # (Auto) (4639-7814) /uL Lymph # (Auto) (0652-0812) /uL [place] # (Auto) (0-900) /uL Eos # (Auto) (0-450) /uL Baso # (Auto) (0-100) /uL PT 12.8 H (10.1-12.7) SECONDS INR 1.1 (0.9-1.3) APTT 37 H (26.4-36.2) SECONDS D-Dimer (<230) ng/mL Sodium (137-145) mmol/L Potassium (3.4-5.1) mmol/L Chloride (98-107) mmol/L Carbon Dioxide (22-32) mmol/L BUN (9-20) mg/dL Creatinine (0.66-1.25) mg/dL Estimated GFR (>60) mL/min BUN/Creatinine Ratio (6-22) Glucose (70-100) mg/dL Lactate (0.7-2.1) mmol/L Calcium (8.4-10.2) mg/dL Ferritin (18-464) ng/mL Total Bilirubin (0.2-1.3) mg/dL AST (17-59) IU/L ALT (<50) IU/L Alkaline Phosphatase (38-126) U/L Lactate Dehydrogenase (313-618) U/L Total Creatine Kinase 443 H (55-170) U/L CK-MB (CK-2) (<2.37) ng/mL CK-MB (CK-2) Rel Index (1.5-5.0) % Troponin I (0.01-0.034) ng/mL C-Reactive Protein (<1.0) mg/dL Total Protein (6.3-8.2) g/dL Albumin (3.5-5.0) g/dL Globulin (1.7-4.1) g/dL Albumin/Globulin Ratio (1.0-2.8) Procalcitonin (<0.5) ng/mL SARS-CoV-2 (PCR) (Negative) Discharge Plan Departure Patient Disposition: Admitted As Inpatient Clinical Impression: COVID-19, Hypoxia Admit Date/Time: 11/08/20 15:00 Admit Provider: Jewels Jaeger <Darleen Davalos DO - Last Filed: 11/13/20 02:21> Cosign ED Attending Cosignature Attestation: I was immediately available in the department for consultation. Documentation has been reviewed. Case was discussed with myself.
--- NOTE | 2020-11-08 18:31 | P.HP_ITS ---
History of Present Illness History of Present Illness Chief complaint: sob/chills/headach/dizzy/diarrhea x7 days Narrative: The patient is a 44-year-old male with a history of opioid use disorder, ADHD, depression, who was in his usual state of health until about a week ago. Patient developed fever cough and chills. He also developed progressive headache. Patient complained of shortness of breath which got p rogressively worse. He was seen and evaluated in the emergency room and found to be positive for [id number]. Patient was hypoxic with a room air sat of 88%. Suspicious for atypical pneumonia. Patient is non vaccinated. Patient received Decadron remdesivir in the emergency room is admitted to the hospital for further evaluation. Patient History Medical History (Updated 11/08/20 @ 18:34 by Jewels Jaeger MD) ADHD Depression Opioid use disorder Psychiatric disorder Family & Social History Social History: non smoker Safety & Behavioral: Feels Safe in Current Yes Environment Been Physically Hurt or No Threatened By a Person Tobacco & Substance use: Smoking Status Never smoker Substance Use Type does not use Review of Systems Review of Systems Narrative: 10 point review of system is negative Exam Vital Signs (past 8 hours): - 11/08/20 12:07 11/08/20 13:48 11/08/20 14:00 Temperature 98.4 F Pulse Rate 79 73 77 Respiratory Rate 20 Blood Pressure 117/80 Pulse Oximetry 88 L 92 91 11/08/20 14:01 11/08/20 14:30 11/08/20 15:00 Temperature Pulse Rate 84 66 65 Respiratory Rate 15 10 L Blood Pressure 109/75 113/72 Pulse Oximetry 91 93 92 11/08/20 15:01 11/08/20 15:30 11/08/20 16:00 Temperature Pulse Rate 67 63 68 Respiratory Rate 13 14 28 H Blood Pressure 107/71 114/74 Pulse Oximetry 92 93 96 11/08/20 16:01 11/08/20 16:20 Temperature 97.3 F L Pulse Rate 63 57 L Respiratory Rate 20 Blood Pressure 123/78 135/88 Pulse Oximetry 96 93 Oxygen Delivery Method Nasal Cannula Oxygen Flow Rate 0 Narrative Exam Narrative: Ill-appearing male lying in bed [facility] Other: HEENT: Normocephalic atraumatic Eyes Other: Extraocular muscles are intact, oropharynx is clear, neck is supple Neck Other: No adenopathy or thyromegaly Resp Other: Lungs decreased breath sounds with scattered crackle Cardio Other: Cardiac exam: Regular rate and rhythm normal S1-S2 GI Other: Abdomen soft nontender nondistended Skin Other: Multiple tattoos on the neck upper extremity and hand Extrem Other: No edema Objective Labs Result Diagrams: 11/08/20 13:05 11/08/20 13:05 Labs: Laboratory Results - last 24 hr 11/08/20 11/08/20 11/08/20 12:32 13:05 13:05 WBC 2.4 L RBC 5.21 Hgb 15.1 Hct 44.0 MCV 84.6 MCH 28.9 MCHC 34.2 RDW 13.6 Plt Count 116 L Neut % (Auto) 47.5 L Lymph % (Auto) 40.0 [place] % (Auto) 11.3 Eos % (Auto) 0.5 L Baso % (Auto) 0.7 Neut # (Auto) 1100 L Lymph # (Auto) 1000 L [place] # (Auto) 300 Eos # (Auto) 0 Baso # (Auto) 0 PT INR APTT D-Dimer 290 H Sodium Potassium Chloride Carbon Dioxide BUN Creatinine Estimated GFR BUN/Creatinine Ratio Glucose Lactate Calcium Ferritin Total Bilirubin AST ALT Alkaline Phosphatase Lactate Dehydrogenase Total Creatine Kinase CK-MB (CK-2) CK-MB (CK-2) Rel Index Troponin I C-Reactive Protein Total Protein Albumin Globulin Albumin/Globulin Ratio Procalcitonin SARS-CoV-2 (PCR) Positive H 11/08/20 11/08/20 11/08/20 13:05 13:05 13:05 WBC RBC Hgb Hct MCV MCH MCHC RDW Plt Count Neut % (Auto) Lymph % (Auto) [place] % (Auto) Eos % (Auto) Baso % (Auto) Neut # (Auto) Lymph # (Auto) [place] # (Auto) Eos # (Auto) Baso # (Auto) PT INR APTT D-Dimer Sodium 137 Potassium 3.9 Chloride 105 Carbon Dioxide 25 BUN 19 Creatinine 1.96 H Estimated GFR 37.0 L BUN/Creatinine Ratio 9.7 Glucose 94 Lactate 0.7 Calcium 8.1 L Ferritin 159 Total Bilirubin 0.7 AST 87 H ALT 27 Alkaline Phosphatase 98 Lactate Dehydrogenase 595 Total Creatine Kinase 438 H CK-MB (CK-2) 3.62 H CK-MB (CK-2) Rel Index 0.8 L Troponin I < 0.012 C-Reactive Protein 2.1 H Total Protein 7.8 Albumin 3.9 Globulin 3.9 Albumin/Globulin Ratio 1.0 Procalcitonin 0.10 SARS-CoV-2 (PCR) 11/08/20 11/08/20 13:05 13:05 WBC RBC Hgb Hct MCV MCH MCHC RDW Plt Count Neut % (Auto) Lymph % (Auto) [place] % (Auto) Eos % (Auto) Baso % (Auto) Neut # (Auto) Lymph # (Auto) [place] # (Auto) Eos # (Auto) Baso # (Auto) PT 12.8 H INR 1.1 APTT 37 H D-Dimer Sodium Potassium Chloride Carbon Dioxide BUN Creatinine Estimated GFR BUN/Creatinine Ratio Glucose Lactate Calcium Ferritin Total Bilirubin AST ALT Alkaline Phosphatase Lactate Dehydrogenase Total Creatine Kinase 443 H CK-MB (CK-2) CK-MB (CK-2) Rel Index Troponin I C-Reactive Protein Total Protein Albumin Globulin Albumin/Globulin Ratio Procalcitonin SARS-CoV-2 (PCR) Assessment & Plan Assessment & Plan narrative: Impression 1. 44-year-old male admitted to the hospital with COVID pneumonia -patient is unvaccinated, has been ill for the past 7 days -chest x-ray confirmed atypical pneumonia -patient is leukopenic, and hypoxic -wi continue remdesivir and Decadron -no evidence of bacterial superinfection -will continue to follow his inflammatory markers 2. Acute hypoxic respiratory for -acute hypoxemia secondary to COVID pneumonia -continue oxygen, Decadron, remdesivir 3. Acute renal failure -likely secondary to acute COVID pneumonia -baseline on 4. Depression -continue Celexa 5. Psychiatric disorder , undefined - continue usual home psych medications -clonazepam, aripiprazole, hydoxyzine, prazosin 6. Opioid use disorder -will continue Suboxone, not on formulary here, patient will need to use home medication 7. ADHD -will continue Adderall, not on formulary, patient may use own home medication Patient with placed on DVT prophylaxis Patient reports he is a full code Patient states his is his surrogate decision maker Patient admitted as an inpatient, anticipate hospital stay to 4 days Time Spent With Patient Critical Care time: I spent a total of [] minutes of critical care time on this patient's care today; this time is exclusive of procedural time.
[2020-11-08] MEDS: clonazePAM 0.5 MG TABLET PO (20:56)
[2020-11-08] MEDS: DOCUSATE 100 MG CAPSULE PO (20:56)
[2020-11-08] MEDS: MIRTAZAPINE 15 MG TABLET 45 MG PO (20:57)
[2020-11-08] MEDS: PRAZOSIN 1 MG CAPSULE PO (20:59)
--- NOTE | 2020-11-08 21:51 | PC.NURSE ---
Pt arrived from ED @ 1620 Alert/.oreinted SpO2 94% 2L, desats to 89% RA Lungs clear, decreased at bases Independent in room. Tele placed as per orders. Tele showing NSR HL right hand intact/patent. Call light w/in reach, independent in room. Pt calls appropriately for needs,
[2020-11-09] VITALS (11 sets, daily range): BP systolic 105–115; BP diastolic 55–76; PULSE 46–56; RESP 16–20; TEMP 34.3–37.2; O2SAT 87–94
[2020-11-09] MEDS: ACETAMINOPHEN 325 MG TABLET 650 MG PO (03:01)
[2020-11-09 05:16] LABS: Alanine Aminotransferase 27 IU/L (<50); Albumin 3.7 g/dL (3.5-5.0); Alkaline Phosphatase 83 U/L (38-126); Aspartate Aminotransferase 80 IU/L (17-59); Bilirubin Total 0.6 mg/dL (0.2-1.3); Blood Urea Nitrogen 24 mg/dL (9-20); C-Reactive Protein Quant 2.2 mg/dL (<1.0); Calcium 8.4 mg/dL (8.4-10.2); Carbon Dioxide 26 mmol/L (22-32); Chloride 105 mmol/L (98-107); Estimated Glomerular Filt Rate 46.8 mL/min (>60); Globulin 3.7 g/dL (1.7-4.1); Glucose 132 mg/dL (70-100); HEMOLYSIS < 15 (0-50); Potassium 4.7 mmol/L (3.4-5.1); Sodium 137 mmol/L (137-145); Total Protein 7.4 g/dL (6.3-8.2)
[2020-11-09 05:22] LABS: Hematocrit 41.9 % (41-53); Hemoglobin 14.4 g/dL (13.5-17.5); Mean Corpuscular HGB Conc 34.4 % (30-36); Mean Corpuscular Hemoglobin 29.1 PG (26-34); Mean Corpuscular Volume 84.7 fL (80-100); Platelet Count 126 X10^3/uL (150-400); Red Blood Cell Count 4.95 X10^6/uL (4.5-5.9); Red Cell Distribution Width 13.8 % (11.6-14.8)
[2020-11-09 05:48] LABS: White Blood Cell Count 1.6 X10^3/uL (4.5-11.0)
[2020-11-09 05:49] LABS: Add Manual Diff / Slide Review YES
[2020-11-09] MEDS: PANTOPRAZOLE DR 20 MG TABLET PO (06:35)
[2020-11-09 06:49] LABS: Neutrophils Absolute Manual 832 /uL (3000-5900); Total Cells Counted 50
[2020-11-09 06:50] LABS: RBC Morphology Norm
--- NOTE | 2020-11-09 07:49 | PC.NURSE ---
Provider stopped by my computer and stated she already knew about this mornings critical lab of WBC 1.6. Coordinator stopped by my computer as well with sticky note with same info. I checked labs and it wasn't showing up. A couple minutes later it did.
[2020-11-09] MEDS: DEXAMETHASONE 10 MG/ML VIAL 6 MG IV (08:34)
[2020-11-09] MEDS: DOCUSATE 100 MG CAPSULE PO ×2 (08:34→20:56)
[2020-11-09] MEDS: ARIPiprazole 10 MG TABLET 15 MG PO (08:34)
[2020-11-09] MEDS: clonazePAM 0.5 MG TABLET PO ×2 (08:34→20:56)
[2020-11-09] MEDS: CITALOPRAM 10 MG TABLET 40 MG PO (08:34)
[2020-11-09] MEDS: ENOXAPARIN 40 MG/0.4 ML SYRINGE SUBCUT (08:35)
[2020-11-09] MEDS: BUPRENORPHINE/NALOXONE 8MG/2MG 1 TAB SL (10:00)
[2020-11-09] MEDS: REMDESIVIR 100 MG in SODIUM CHLORIDE 0.9% 230 ML 250 ML IV (14:40)
--- NOTE | 2020-11-09 15:40 | PC.NURSE ---
Pt A&Ox3, difficult IV start as old IV site compromised. After multiple RN's attemted multiple times to reestablish IV access, notified and received orders for Midline. Midline placement completed at 1430. Pharmacy notified of late remdesevir administration, no new orders at this time.
--- NOTE | 2020-11-09 16:12 | CM.IDA ---
Initial DCP Assessment Note Pt is a 44 yo male, resident of [place], arrives w/a week long h/o progressive symptoms related to COVID-19+ virus PCP: Cathryn Flores Payer: [facility] Reviewed chart, placed call into patient's room and line was busy, so placed call to patient's cell phone. Introduced role. Patient gave this LEAD C DEVELOPER updated info for spouse Dary Juan# [phone], who is also COVID-19+ and self quarantined at home. Patient/spouse have children that are grown. Patient has dx of ADHD, depression, and psychiatric disorder per medical summary. Patient reports his PCP manages/prescribes his home meds to include Abilify, Celexa, Clonazepam and Remeron. Patient also going to [place] [facility] for Suboxone dosing, states this is for relapse prevention. Patient begins to discuss relapse and assisted time, this LEAD C DEVELOPER cannot hear patient, cell phone connection is poor. Patient got frustrated and says can you call me back later, I am trying to eat my lunch Patient indp at baseline, and appears connected w/outpatient resources. No needs expected from DC planning team although will remain available in case this changes before patient's DC. HEBER Olivera Discharge Planning/Care Management CM Discharge Assessment Start: 11/09/20 16:10 Freq: Status: Active Protocol: Document 11/09/20 16:10 EMI (Rec: 11/09/20 16:12 EMI [id number]) Discharge Planning Assessment Assigned Research Microbiologist HEBER Wcik DPOA/Assigned Designee Name Dary Noel, spouse Contact Information [phone] Advance Directives? Yes Advance Directives on File No History Provided By Patient,Medical Record Prior Living Arrangements House Household Members spouse Type of transporation used prior to Drives own vehicle admit Independent with ADL's Yes Is patient alert and oriented? Yes Barriers to Discharge No Comment Recover from COVID-19 pnuemonia and DC home Discharge Plan Home Transportation Arrangement Family Referrals Initiated None needed Additional Comment At this time
[2020-11-09] MEDS: BUPRENORPHINE/NALOXONE 8MG/2MG 1 TAB 2 TAB SL (17:46)
--- NOTE | 2020-11-09 18:17 | PM.PN.1 ---
Subjective Subjective Date Patient Seen: 11/09/20 Time Patient Seen: 16:00 Interval history: 44 year old male PMH of substance abuse, depression ADHD admitted with COVID pneumonia. Okay today on room air at rest with O2 sats on exam in the low to mid 90s. With minimal exertion still with desaturations to 89%. Improved breathing today he states. No diarrhea. No abdominal pain. Cough stable. Exam Vital Signs (past 8 hours): - 11/09/20 12:00 11/09/20 15:50 11/09/20 17:17 Temperature 96.5 F L 96.8 F L Pulse Rate 48 L 53 L Respiratory Rate 20 18 Blood Pressure 115/76 112/55 L Pulse Oximetry 93 94 91 Oxygen Delivery Method Nasal Cannula Oxygen Flow Rate 0 Narrative Exam Narrative: Gen: mildly ill appearing male in no acute distress HENMT Other:?HEENT: Normocephalic atraumatic Eyes Other:?Extraocular muscles are intact, oropharynx is clear, neck is supple Neck Other:?No adenopathy or thyromegaly Resp Other:?Lungs decreased breath sounds with scattered crackle Cardio Other:?Cardiac exam: Regular rate and rhythm normal S1-S2 GI Other:?Abdomen soft nontender nondistended Skin Other:?Multiple tattoos on the neck upper extremity and hand Extrem Other:?No edema Objective Labs Result Diagrams: 11/09/20 04:35 11/09/20 04:35 Labs: Laboratory Results - last 24 hr 11/09/20 11/09/20 04:35 04:35 WBC 1.6 L* RBC 4.95 Hgb 14.4 Hct 41.9 MCV 84.7 MCH 29.1 MCHC 34.4 RDW 13.8 Plt Count 126 L Neut % (Auto) Not Reportable Lymph % (Auto) Not Reportable [place] % (Auto) Not Reportable Eos % (Auto) Not Reportable Baso % (Auto) Not Reportable Lymph # (Auto) Not Reportable [place] # (Auto) Not Reportable Baso # (Auto) Not Reportable Total Counted 50 Seg Neutrophils % 44.0 Band Neutrophils % 8.0 H Lymphocytes % (Manual) 26.0 Atypical Lymphs % 2.0 H Monocytes % (Manual) 18.0 H Basophils % (Manual) 2.0 H Neutrophils # (Manual) 832 L RBC Morphology Norm Sodium 137 Potassium 4.7 Chloride 105 Carbon Dioxide 26 BUN 24 H Creatinine 1.60 H Estimated GFR 46.8 L BUN/Creatinine Ratio 15.0 Glucose 132 H Calcium 8.4 Total Bilirubin 0.6 AST 80 H ALT 27 Alkaline Phosphatase 83 C-Reactive Protein 2.2 H Total Protein 7.4 Albumin 3.7 Globulin 3.7 Albumin/Globulin Ratio 1.0 Procalcitonin 0.10 [facility] Medical History (Updated 11/08/20 @ 18:34 by Jewels Jaeger MD) ADHD Depression Opioid use disorder Psychiatric disorder Social History household members: spouse Smoking Status: Never smoker Assessment & Plan Assessment & Plan narrative: 1. 44-year-old male admitted to the hospital with COVID pneumonia, acute respiratory failure. -patient is unvaccinated, was ill for 7 days prior to admission -chest x-ray confirmed atypical pneumonia -patient is leukopenic, and hypoxic -will continue remdesivir and Decadron -no evidence of bacterial superinfection, but worsening neutropenia today 2. Acute hypoxic respiratory -acute hypoxemia secondary to COVID pneumonia -continue oxygen, Decadron, remdesivir 3. Acute renal failure -likely secondary to acute COVID pneumonia, improved today, continue to follow. 4. Depression -continue Celexa 5. Psychiatric disorder, undefined - continue usual home psych medications -clonazepam, aripiprazole, hydoxyzine, prazosin 6. Opioid use disorder -will continue Suboxone 7. ADHD -will continue Adderall, not on formulary, patient may use own home medication Patient with placed on DVT prophylaxis Patient reports he is a full code Patient states his is his surrogate decision maker Patient admitted as an inpatient, if no longer on supplemental O2 may discharge home Time Spent With Patient Critical Care time: I spent a total of [] minutes of critical care time on this patient's care today; this time is exclusive of procedural time. Quality VTE Deep Vein Thrombosis/Pulmonary Embolism Present on Admission: No
[2020-11-09] MEDS: MIRTAZAPINE 15 MG TABLET 45 MG PO (20:56)
--- NOTE | 2020-11-09 21:46 | PC.NURSE ---
O2 sats/RA sats maintained 91% on RA with continuous monitor on. pt states breathing feels better tonight and is hopeful he'll be able to go home tomorrow.
[2020-11-10] VITALS (8 sets, daily range): BP systolic 98–123; BP diastolic 51–76; PULSE 50–71; RESP 18–20; TEMP 36.1–37; O2SAT 90–93
--- NOTE | 2020-11-10 02:01 | PC.NURSE ---
Addendum entered by Loulou Cleveland R.N. 11/10/20 06:01: Patient maintaining sat at 93-94% this morning on oxygen at 5L/min so decreased to 4L/min Original Note: Patient is alert and oriented with flat affect and offers little in way of conversation. Breath sounds diminished throughout. On oxygen at 3L/min with sat initially at 90% but dropped to 84% with activity and then once again at rest was fluctuating 88-90% so increased to 5L/min to keep sat >/= 90%; being monitored on continuous oximetry. HRR but bradycardic with rate of 50 bpm. BP also low at 99/65. Last recorded telemetry reading was SB w/prolonged QT. Denies nausea. BT hypoactive. Voiding per urinal and denies dysuria, frequency or urgency. Independent with mobility but instructed to call for assistance if feeling dizzy, weak or lightheaded when up to bathroom. Does report feeling SOB at rest and with activity. Intermittent non productive cough noted. Declines use of SCD's so reminded of purpose and need to ankle wave when awake if not wearing them. Is on COVID precautions. Fall risk score is low.
[2020-11-10] MEDS: PANTOPRAZOLE DR 20 MG TABLET PO (05:30)
[2020-11-10] MEDS: BUPRENORPHINE/NALOXONE 8MG/2MG 1 TAB SL (09:07)
[2020-11-10] MEDS: ARIPiprazole 10 MG TABLET 15 MG PO (09:07)
[2020-11-10] MEDS: DEXAMETHASONE 10 MG/ML VIAL 6 MG IV (09:08)
[2020-11-10] MEDS: DOCUSATE 100 MG CAPSULE PO ×2 (09:08→21:08)
[2020-11-10] MEDS: CITALOPRAM 10 MG TABLET 40 MG PO (09:08)
[2020-11-10] MEDS: clonazePAM 0.5 MG TABLET PO ×2 (09:08→21:08)
[2020-11-10] MEDS: ENOXAPARIN 40 MG/0.4 ML SYRINGE SUBCUT (09:09)
[2020-11-10] MEDS: REMDESIVIR 100 MG in SODIUM CHLORIDE 0.9% 230 ML 250 ML IV (09:09)
[2020-11-10] MEDS: SODIUM CHLORIDE 0.9% FLUSH 10 ML IV ×2 (09:10→21:08)
[2020-11-10 10:32] LABS: Add Manual Diff / Slide Review NO; Basophils Absolute Auto 0 /uL (0-100); Basophils Percent Auto 0.3 % (0-2); Eosinophils Absolute Auto 0 /uL (0-450); Hematocrit 41.2 % (41-53); Hemoglobin 14.1 g/dL (13.5-17.5); Lymphocytes Absolute Auto 1000 /uL (1100-4500); Lymphocytes Percent Auto 15.1 % (25-40); Mean Corpuscular HGB Conc 34.3 % (30-36); Mean Corpuscular Hemoglobin 29.2 PG (26-34); Mean Corpuscular Volume 85.1 fL (80-100); Monocytes Absolute Auto 500 /uL (0-900); Neutrophils Absolute Auto 5100 /uL (1500-7000); Neutrophils Percent Auto 77.6 % (50-75); Platelet Count 149 X10^3/uL (150-400); Red Blood Cell Count 4.84 X10^6/uL (4.5-5.9); Red Cell Distribution Width 14.1 % (11.6-14.8); White Blood Cell Count 6.5 X10^3/uL (4.5-11.0)
[2020-11-10 10:44] LABS: Alanine Aminotransferase 23 IU/L (<50); Albumin 3.6 g/dL (3.5-5.0); Alkaline Phosphatase 87 U/L (38-126); Aspartate Aminotransferase 54 IU/L (17-59); BUN Creatinine Ratio 21.1 (6-22); Bilirubin Total 0.5 mg/dL (0.2-1.3); Blood Urea Nitrogen 28 mg/dL (9-20); Calcium 8.1 mg/dL (8.4-10.2); Carbon Dioxide 25 mmol/L (22-32); Chloride 106 mmol/L (98-107); Estimated Glomerular Filt Rate 57.9 mL/min (>60); Globulin 3.6 g/dL (1.7-4.1); Glucose 161 mg/dL (70-100); HEMOLYSIS 23 (0-50); Potassium 4.1 mmol/L (3.4-5.1); Sodium 138 mmol/L (137-145); Total Protein 7.2 g/dL (6.3-8.2)
[2020-11-10] MEDS: BUPRENORPHINE/NALOXONE 8MG/2MG 1 TAB 2 TAB SL (17:03)
--- NOTE | 2020-11-10 18:11 | P.PN_ITS ---
Subjective Subjective Date Patient Seen: 11/10/20 Time Patient Seen: 18:11 Interval history: 44 year old male PMH of substance abuse, depression ADHD admitted with COVID pneumonia. Okay today on room air at rest with O2 sats on exam in the low to mid 90s during my evaluation. Had been on 3L. With minimal exertion still with desaturations. He feels like he is having to work a bit harder to breathe with exertion. No diarrhea. No abdominal pain. Cough stable. Exam Vital Signs (past 8 hours): - 11/10/20 11:47 11/10/20 13:00 11/10/20 17:00 Temperature 97.2 F L Pulse Rate 51 L 56 L 54 L Respiratory Rate 18 18 18 Blood Pressure 98/65 115/76 Pulse Oximetry 93 93 93 Oxygen Delivery Method Nasal Cannula Oxygen Flow Rate 0 Narrative Exam Narrative: Gen: mildly ill appearing male in no acute distress HENMA Other:?HEENT: Normocephalic atraumatic Eyes Other:?Extraocular muscles are intact, oropharynx is clear, neck is supple Neck Other:?No adenopathy or thyromegaly Resp Other:?Lungs decreased breath sounds with scattered crackle Cardio Other:?Cardiac exam: Regular rate and rhythm normal S1-S2 GI Other:?Abdomen soft nontender nondistended Skin Other:?Multiple tattoos on the neck upper extremity and hand Extrem Other:?No edema Objective Labs Result Diagrams: 11/10/20 10:09 11/10/20 10:09 Labs: Laboratory Results - last 24 hr 11/10/20 11/10/20 10:09 10:09 WBC 6.5 D RBC 4.84 Hgb 14.1 Hct 41.2 MCV 85.1 MCH 29.2 MCHC 34.3 RDW 14.1 Plt Count 149 L Neut % (Auto) 77.6 H D Lymph % (Auto) 15.1 L D [place] % (Auto) 7.0 Eos % (Auto) 0.0 L Baso % (Auto) 0.3 Neut # (Auto) 5100 Lymph # (Auto) 1000 L [place] # (Auto) 500 Eos # (Auto) 0 Baso # (Auto) 0 Sodium 138 Potassium 4.1 Chloride 106 Carbon Dioxide 25 BUN 28 H Creatinine 1.33 H Estimated GFR 57.9 L BUN/Creatinine Ratio 21.1 Glucose 161 H Calcium 8.1 L Total Bilirubin 0.5 AST 54 ALT 23 Alkaline Phosphatase 87 Total Protein 7.2 Albumin 3.6 Globulin 3.6 Albumin/Globulin Ratio 1.0 PFSH Medical History (Updated 11/08/20 @ 18:34 by Jewels Jaeger MD) ADHD Depression Opioid use disorder Psychiatric disorder Social History household members: spouse Smoking Status: Never smoker Assessment & Plan Assessment & Plan narrative: 1. 44-year-old male admitted to the hospital with COVID pneumonia, acute respiratory failure. -patient is unvaccinated, was ill for 7 days prior to admission -chest x-ray confirmed atypical pneumonia -will continue remdesivir and Decadron -no evidence of bacterial superinfection, neutropenia improved today. 2. Acute hypoxic respiratory -acute hypoxemia secondary to COVID pneumonia -continue oxygen, Decadron, remdesivir 3. Acute renal failure -likely secondary to acute COVID pneumonia, improved today, continue to follow. creatinine to 1.9 to 1.3. 4. Depression -continue Celexa 5. Psychiatric disorder, undefined - continue usual home psych medications -clonazepam, aripiprazole, hydoxyzine, prazosin 6. Opioid use disorder -will continue Suboxone 7. ADHD -will continue Adderall, not on formulary, patient may use own home medication Patient with placed on DVT prophylaxis Patient reports he is a full code Patient states his is his surrogate decision maker Patient admitted as an inpatient, if no longer on supplemental O2 may discharge home Time Spent With Patient Critical Care time: I spent a total of [] minutes of critical care time on this patient's care today; this time is exclusive of procedural time. Quality VTE Deep Vein Thrombosis/Pulmonary Embolism Present on Admission: No
[2020-11-10] MEDS: MIRTAZAPINE 15 MG TABLET 45 MG PO (21:08)
[2020-11-10] MEDS: PRAZOSIN 1 MG CAPSULE PO (21:08)
[2020-11-11] VITALS: BP 106/58; PULSE 51; RESP 16; TEMP 36.9; O2SAT 94
[2020-11-11 04:00] VITALS: BP 111/67; PULSE 50; RESP 18; TEMP 36.7; O2SAT 92
[2020-11-11 05:26] LABS: Add Manual Diff / Slide Review NO; Basophils Absolute Auto 0 /uL (0-100); Basophils Percent Auto 0.4 % (0-2); Eosinophils Absolute Auto 0 /uL (0-450); Hematocrit 40.2 % (41-53); Hemoglobin 13.7 g/dL (13.5-17.5); Lymphocytes Absolute Auto 1200 /uL (1100-4500); Lymphocytes Percent Auto 13.8 % (25-40); Mean Corpuscular Hemoglobin 28.8 PG (26-34); Mean Corpuscular Volume 84.9 fL (80-100); Monocytes Absolute Auto 900 /uL (0-900); Monocytes Percent Auto 10.8 % (3-14); Neutrophils Absolute Auto 6300 /uL (1500-7000); Platelet Count 154 X10^3/uL (150-400); Red Blood Cell Count 4.74 X10^6/uL (4.5-5.9); White Blood Cell Count 8.4 X10^3/uL (4.5-11.0)
[2020-11-11 05:33] LABS: Alanine Aminotransferase 20 IU/L (<50); Albumin 3.4 g/dL (3.5-5.0); Alkaline Phosphatase 84 U/L (38-126); Aspartate Aminotransferase 42 IU/L (17-59); BUN Creatinine Ratio 23.7 (6-22); Bilirubin Total 0.4 mg/dL (0.2-1.3); Blood Urea Nitrogen 27 mg/dL (9-20); Calcium 7.9 mg/dL (8.4-10.2); Carbon Dioxide 26 mmol/L (22-32); Chloride 108 mmol/L (98-107); Estimated Glomerular Filt Rate > 60.0 mL/min (>60); Globulin 3.5 g/dL (1.7-4.1); Glucose 123 mg/dL (70-100); HEMOLYSIS 36 (0-50); Sodium 139 mmol/L (137-145); Total Protein 6.9 g/dL (6.3-8.2)
[2020-11-11] MEDS: PANTOPRAZOLE DR 20 MG TABLET PO (05:47)
[2020-11-11] MEDS: CITALOPRAM 10 MG TABLET 40 MG PO (07:52)
[2020-11-11] MEDS: DOCUSATE 100 MG CAPSULE PO (07:52)
[2020-11-11] MEDS: BUPRENORPHINE/NALOXONE 8MG/2MG 1 TAB SL (07:52)
[2020-11-11] MEDS: ENOXAPARIN 40 MG/0.4 ML SYRINGE SUBCUT (07:52)
[2020-11-11] MEDS: ARIPiprazole 10 MG TABLET 15 MG PO (07:52)
[2020-11-11] MEDS: clonazePAM 0.5 MG TABLET PO (07:53)
[2020-11-11] MEDS: SODIUM CHLORIDE 0.9% FLUSH 10 ML IV (07:55)
[2020-11-11 08:50] VITALS: BP 126/76; PULSE 53; RESP 16; TEMP 36.4; O2SAT 92
[2020-11-11 11:17] VITALS: PULSE 57; RESP 20; O2SAT 91
[2020-11-11 12:00] VITALS: O2SAT 94
--- NOTE | 2020-11-11 12:22 | PM.DS.1 ---
History of Present Illness History of Present Illness Date Patient Seen: 11/11/20 Time Patient Seen: 12:23 Chief complaint: sob/chills/headach/dizzy/diarrhea x7 days Narrative: The patient is a 44-year-old male with a history of opioid use disorder, ADHD, depression, who was in his usual state of health until about a week ago.? Patient developed fever cough and chills.? He also developed progressive headache.? Patient complained of shortness of breath which got progressively worse.? He was seen and evaluated in the emergency room and found to be positive for [id number].? Patient was hypoxic with a room air sat of 88%.? Suspicious for atypical pneumonia.? Patient is non vaccinated.? Patient received Decadron remdesivir in the emergency room is admitted to the hospital for further evaluation. Discharge Providers Provider Date of admission: 11/08/20 15:00 Discharge Date: 11/11/20 Primary care physician: Cathryn Flores PA-C Discharge provider: Jacob Scott DO Summary Hospital Course Discharge Diagnosis: 1. COVID 19 pneumonia 2. Acute hypoxic respiratory failure 3. Acute renal failure, improved 4. Depression 5. Psychiatric disorder, undefined 6. Opioid use disorder 7. ADHD Hospital Course: 44-year-old male admitted to the hospital with COVID pneumonia, acute respiratory failure, and JAMES. He required supplemental oxygen on admission and required as high as 4 L via nasal cannula. He was continued on steroids and remdesivir therapy with continued improvement. He also had a mild JAMES with a creatinine of 1.9 that improved to 1.14 on the day of discharge. On the day of discharge he no longer required supplemental oxygen at rest or with significant activity. His symptoms had markedly improved. He was recommended to continue isolation at home following CDC guidelines. No medication changes recommended at the time of discharge in the patient should follow-up with his primary care provider as previously scheduled. Time Spent with Patient Time spent: Greater than 30 minutes Exam Vital Signs (past 8 hours): - 11/11/20 08:50 11/11/20 12:00 Temperature 97.6 F Pulse Rate 53 L Respiratory Rate 16 Blood Pressure 126/76 Pulse Oximetry 92 94 Oxygen Delivery Method Room Air Oxygen Flow Rate 0 Narrative Exam Narrative: Gen: WDWN male, no acute distress. HENMT Other:?HEENT: Normocephalic atraumatic Eyes Other:?Extraocular muscles are intact, oropharynx is clear, neck is supple Neck Other:?No adenopathy or thyromegaly Resp Other:?Lungs decreased breath sounds with scattered crackle Cardio Other:?Cardiac exam: Regular rate and rhythm normal S1-S2 GI Other:?Abdomen soft nontender nondistended Skin Other:?Multiple tattoos on the neck upper extremity and hand Extrem Other:?No edema or joint effusions Objective Labs Result Diagrams: 11/11/20 05:06 11/11/20 05:06 Labs: Laboratory Results - last 24 hr 11/11/20 11/11/20 05:06 05:06 WBC 8.4 RBC 4.74 Hgb 13.7 Hct 40.2 L MCV 84.9 MCH 28.8 MCHC 34.0 RDW 14.0 Plt Count 154 Neut % (Auto) 75.0 Lymph % (Auto) 13.8 L [place] % (Auto) 10.8 Eos % (Auto) 0.0 L Baso % (Auto) 0.4 Neut # (Auto) 6300 Lymph # (Auto) 1200 [place] # (Auto) 900 Eos # (Auto) 0 Baso # (Auto) 0 Sodium 139 Potassium 4.0 Chloride 108 H Carbon Dioxide 26 BUN 27 H Creatinine 1.14 Estimated GFR > 60.0 BUN/Creatinine Ratio 23.7 H Glucose 123 H Calcium 7.9 L Total Bilirubin 0.4 AST 42 ALT 20 Alkaline Phosphatase 84 Total Protein 6.9 Albumin 3.4 L Globulin 3.5 Albumin/Globulin Ratio 1.0 [facility] Medical History (Updated 11/08/20 @ 18:34 by Jewels Jaeger MD) ADHD Depression Opioid use disorder Psychiatric disorder Social History household members: spouse Smoking Status: Never smoker Discharge Plan Discharge Plan Patient Disposition: Home Provider Discharge Comment: You were admitted to the hospital with severe COVID pneumonia. You improved with treatments. No medication changes are recommended. Continue to isolate at home per CDC guidelines. Discharge orders & Medications Prescriptions: Continued dextroamphetamine-amphetamine 20 mg capsule,extended release 24hr 20 mg PO DAILY RF: 0 buprenorphine-naloxone [Suboxone] 12-3 mg film 1 film sublingual DAILY RF: 0 aripiprazole [Abilify] 15 mg Tablet 15 mg PO DAILY RF: 0 clonazepam 0.5 mg Tablet 0.25 mg PO BID RF: 0 mirtazapine 45 mg Tablet 45 mg PO BEDTIME RF: 0 hydroxyzine HCl 50 mg Tablet 50 mg PO TID PRN (Reason: Anxiety) RF: 0 prazosin 1 mg Capsule 1 mg PO BEDTIME RF: 0 citalopram 40 mg Tablet 40 mg PO DAILY RF: 0 buprenorphine-naloxone [Suboxone] 12-3 mg Film 1 film BUCCAL BID RF: 0 Follow up/Referrals: Cathryn Flores PA-C [Primary Care Provider] - Diet/Activity/Treatments Diet: Diet as Tolerated Activity: As tolerated Discharge Data Primary Care Provider: Cathryn Flores Quality VTE Deep Vein Thrombosis/Pulmonary Embolism Present on Admission: No
--- NOTE | 2020-11-11 14:11 | PC.NURSE ---
Discharge note: pt up to shower, sit up in chair with minimal desat to 91% at the lowest, while out of bed pt sat was 94-96%. Discharged home, IV discontinued in am due to being pulled out most of the way and no longer in vein. Instructed on continued covid isolation at home and to follow up with his primary care . Discharge packet printed with all these instructions. Pt masked and then wheeled to vehicle via wheelchair. Driving self home. Pt awake and alert to be able to safely do so.
== END 2020-11-11 14:18 | disposition home or self-care (01) | DRG 137 ==
LOC: ED 14:58 → AC 15:00
PROVIDERS: Internal Medicine; Admitting Provider Internal Medicine; Emergency Provider Physician Assistant; PCP Physician Assistant; Referring Provider Physician Assistant; Visit Provider Internal Medicine
DX: U07.1 COVID-19 (principal); J12.82 Pneumonia due to coronavirus disease 2019; J96.01 Acute respiratory failure with hypoxia; N17.9 Acute kidney failure, unspecified; D72.819 Decreased white blood cell count, unspecified; D69.6 Thrombocytopenia, unspecified; F11.10 Opioid abuse, uncomplicated; F32.9 Major depressive disorder, single episode, unspecified; F99 Mental disorder, not otherwise specified; F90.9 Attention-deficit hyperactivity disorder, unspecified type
CPT/HCPCS: 36415; 71045; 80053; 82550; 82553; 82728; 82962; 83605; 83615; 84145; 84484; 85007; 85025; 85379; 85610; 85730; 86140; 87635; 93005; 94760; 94762; 96365; 96375; 99285; C9803; J1100; J1650

== ENCOUNTER 2021-05-10 11:19 | Emergency (ER) | payer OTHER, MEDICAID, SELFPAY ==
[2020-11-08 15:33] VITALS: BMI 35.9
[2021-05-10 11:25] VITALS: BP 140/94; PULSE 91; RESP 15; TEMP 36.7; O2SAT 97; BMI 34.7
--- NOTE | 2021-05-10 12:24 | ED_ITS ---
HPI - Male Genitourinary General Chief complaint: Urogenital-Male Stated complaint: Swelling/pain in lower left quadrant. Hematuria Time Seen by Provider: 05/10/21 11:33 Source: patient Mode of arrival: Ambulatory History of Present Illness HPI Narrative: Patient is a 47-year-old male who presents at the request of a walk-in clinic with hematuria. He has been having left lower abdominal pain ongoing for the last 1 month. He went to get evaluated he was noted to have hematuria he came to the ER for further evaluation. He denies any nausea vomiting. No change in bowel habits. No fever or chills. Pain is intermittent but it does hurt. He denies any painful or frequent urination. No flank pain. Related Data Home Medications Medication Instructions Recorded Confirmed dextroamphetamine-amphetamine ER 20 mg PO DAILY 11/08/20 11/08/20 20 mg 24hr capsule,extend release aripiprazole 15 mg tablet (Abilify) 15 mg PO DAILY 11/09/20 11/09/20 buprenorphine 12 mg-naloxone 3 mg 1 film BUCCAL BID 11/09/20 11/09/20 sublingual film (Suboxone) buprenorphine 12 mg-naloxone 3 mg 1 film SUBLINGUAL DAILY 11/09/20 11/09/20 sublingual film (Suboxone) citalopram 40 mg tablet 40 mg PO DAILY 11/09/20 11/09/20 clonazepam 0.5 mg tablet 0.25 mg PO BID 11/09/20 11/09/20 hydroxyzine HCl 50 mg tablet 50 mg PO TID PRN 11/09/20 11/09/20 mirtazapine 45 mg tablet 45 mg PO BEDTIME 11/09/20 11/09/20 prazosin 1 mg capsule 1 mg PO BEDTIME 11/09/20 11/09/20 Previous Rx's Medication Instructions Recorded cephalexin 500 mg capsule 500 mg PO BID 7 Days #14 cap 05/10/21 ciprofloxacin HCl 500 mg tablet 500 mg PO BID #14 tab 05/10/21 (Cipro) metronidazole 500 mg tablet 500 mg PO Q8H 7 Days #21 tab 05/10/21 Allergies Allergy/AdvReac Type Severity Reaction Status Date / Time No Known Drug Allergies Allergy Verified 05/10/21 11:29 Review of Systems Review of Systems Narrative: GENERAL: Denies chills, fatigue, malaise, fever, sweats, travel HEENT: Denies sinus pain, ear pain, sore throat, difficulty swallowing, neck pain RESPIRATORY: Denies dyspnea, cough, wheezing, hemoptysis, sputum. CARDIOVASCULAR: Denies chest pain, palpitations, orthopnea, edema GASTROINTESTINAL: See HPI : Denies dysuria, frequency, incontinence, hematuria, urinary retention, flank pain. MUSCULOSKELETAL: Denies weakness, joint pain, or bony pain SKIN: No rash, no erythema, no pruritus NEUROLOGIC: Denies weakness, dizziness, headache, numbness, change in speech, confusion PSYCHIATRIC: No concerning psychosocial issues. 12 point review of systems is negative except for those stated above and HPI Patient History Medical History (Updated 05/10/21 @ 14:36 by Peg Linn DO) ADHD Depression Opioid use disorder Psychiatric disorder Social History household members: spouse Smoking Status: Never smoker Smoking Status: Never smoker tobacco type: smokeless tobacco alcohol intake frequency: holidays/special occasions only Substance Use Type: does not use Exam Initial Vital Signs Initial Vital Signs: Vital Signs Temperature 98.0 F 05/10/21 11:25 Pulse Rate 91 H 05/10/21 11:25 Respiratory Rate 15 05/10/21 11:25 Blood Pressure 140/94 H 05/10/21 11:25 Pulse Oximetry 97 05/10/21 11:25 GENERAL: Alert 45-year-old male in no acute distress. HEENT: Head atraumatic,EOMI, pupils reactive, face symmetric, moist mucous membranes CARDIOVASCULAR: Regular rate and rhythm without murmurs, rubs or gallops. RESPIRATORY: Breath sounds equal bilaterally, no wheezes rales or rhonchi. ABDOMEN: Soft, tender left lower quadrant no guarding no rebound EXTREMITIES: Normal range of motion, no clubbing or edema. Neurovascularly intact NEUROLOGICAL: Alert and oriented x4.Normal gait and speech. SKIN: Warm, dry, no laceration, no petechiae, no rashes or lesions. Course Orders Ordered: ED Orders 05/10/21 12:30 Complete Blood Count AUTO DIFF Stat Comprehensive Metabolic Panel Stat Lipase Stat 05/10/21 13:11 CT abdomen pelvis w con Stat Vital Signs Vital signs: Vital Signs - 8 hr 05/10/21 14:48 Pulse Rate 67 Blood Pressure 111/75 Pulse Oximetry 95 MDM - Male Genitourinary Lab Data Result diagrams: 05/10/21 12:30 05/10/21 12:30 Labs: Lab Results 05/10/21 05/10/21 05/10/21 Range/Units 11:25 12:30 12:30 WBC 7.7 (4.5-11.0) X10^3/uL RBC 5.01 (4.5-5.9) X10^6/uL Hgb 14.8 (13.5-17.5) g/dL Hct 42.9 (41-53) % MCV 85.7 (80-100) fL MCH 29.6 (26-34) PG MCHC 34.6 (30-36) % RDW 14.2 (11.6-14.8) % Plt Count 274 (150-400) X10^3/uL Neut % (Auto) 59.9 (50-75) % Lymph % (Auto) 23.2 L (25-40) % [place] % (Auto) 10.8 (3-14) % Eos % (Auto) 4.8 H (2-4) % Baso % (Auto) 1.3 (0-2) % Neut # (Auto) 4600 (0158-3877) /uL Lymph # (Auto) 1800 (6194-1113) /uL [place] # (Auto) 800 (0-900) /uL Eos # (Auto) 400 (0-450) /uL Baso # (Auto) 100 (0-100) /uL Sodium 138 (137-145) mmol/L Potassium 4.0 (3.4-5.1) mmol/L Chloride 103 (98-107) mmol/L Carbon Dioxide 28 (22-32) mmol/L BUN 10 (9-20) mg/dL Creatinine 1.43 H (0.66-1.25) mg/dL Estimated GFR 53.0 L (>60) mL/min BUN/Creatinine Ratio 7.0 (6-22) Glucose 90 (70-100) mg/dL Calcium 9.0 (8.4-10.2) mg/dL Total Bilirubin 0.9 (0.2-1.3) mg/dL AST 49 (17-59) IU/L ALT 29 (<50) IU/L Alkaline Phosphatase 92 (38-126) U/L Total Protein 8.7 H (6.3-8.2) g/dL Albumin 4.1 (3.5-5.0) g/dL Globulin 4.6 H (1.7-4.1) g/dL Albumin/Globulin Ratio 0.9 L (1.0-2.8) Lipase 40 (23-300) U/L Urine RBC Cancelled Urine WBC Cancelled Ur Squamous Epith Cells Cancelled Ur Transition Epith Cell Cancelled Ur Renal Epithelial Cell Cancelled Calcium Oxalate Crystal Cancelled Uric Acid Crystals Cancelled Triple Phos Crystals Cancelled Other Crystals Cancelled Amorphous Sediment Cancelled Urine Bacteria Cancelled Hyaline Casts Cancelled Granular Casts Cancelled RBC Casts Cancelled WBC Casts Cancelled Other Casts Cancelled Urine Mucus Cancelled Urine Trichomonas Cancelled Urine Yeast Cancelled Urine Sperm Cancelled Ur Culture Indicated? Cancelled Micro UA Comment Cancelled Urine Dip Bedside Urine Glucose Negative Bedside Urine Bilirubin + 1 Bedside Urine Ketone - Negative Urine Specific [place] 1.030 Bedside Urine Occult Blood - Negative Bedside Urine pH 6.0 Bedside Urine Protein +/- 15 Bedside Urine Urobilinogen +/- 1mg Bedside Urine Nitrite - Negative Bedside Urine Leukocytes - Negative Esterase Imaging Data CT scan - abdomen/pelvis: Radiologist's Impression: PROCEDURE:? CT ABDOMEN PELVIS W CON ? INDICATIONS:? llq pain ? TECHNIQUE:? After the administration of intravenous contrast, axial sections acquired from the lung bases to the pubic symphysis.? Coronal and sagittal reformats were performed.? For radiation dose reduction, the following was used:? automated exposure control, adjustment of mA and/or kV according to patient size.? ? COMPARISON:? None. ? FINDINGS:? Image quality:? Excellent.? ? Lung bases:? Dependent atelectasis in posterior aspect of bilateral lung bases are seen more prominent in right lung base.? No pleural effusion or pneumothorax. Heart:? No significant findings. ? ABDOMEN: Liver:? There is mild hepatic steatosis, no discrete hepatic lesion is noted. Gallbladder: ? Gallbladder is within normal limits. Biliary ducts:? Unremarkable.? ? Pancreas:? Unremarkable.? ? Spleen:? Spleen is normal in size and enhancement.? A small splenule is noted. Adrenal Glands:? Unremarkable.? ? Kidneys and Ureters:? Unremarkable.? ? ? Stomach and Bowel:? There is no bowel obstruction.? No gastric or small bowel wa ll thickening.? Appendix is visualized and is within normal limits.? Mesenteric fat stranding adjacent to proximal descending colon just distal to splenic flexure is noted without significant adjacent colonic wall thickening, early focal colitis cannot be entirely excluded.? No abscess collection is seen.? Peritoneum:? No abnormal intraperitoneal fluid.? No free air.? ? Ventral Wall: ? No hernias.? Abdominal Nodes:? No retroperitoneal or mesenteric adenopathy by size criteria.? Vessels:? Aorta and inferior vena cava are normal in size.? ? PELVIS: Pelvic Organs:? Unremarkable.? ? Bladder:? Unremarkable.? ? Pelvic Nodes: No enlarged lymph nodes.? Miscellaneous: No hernias are seen. ? ? ? Bones:? No suspicious bony lesion.? No acute vertebral body compression fracture. ? ? IMPRESSION:? 1.? Focal area of pericolonic fat stranding lateral to the proximal descending colon just distal to splenic flexure and may represent focal area of colitis .? No other area of mesenteric fat stranding or abnormal bowel wall thickening.? Appendix is visualized and is within normal limits.? No abscess collection.? No free fluid or free air. 2. Hepatic steatosis, no discrete hepatic lesion. 3.? Bibasilar dependent atelectasis posteriorly. ? ? Dictated by: Casey Carter M.D. on 05/10/2021 at 14:11 ? ? [facility] Narrative Medical decision making narrative: Patient has been having ongoing left lower quadrant pain for a month. He is afebrile without leukocytosis blood work is overall reassuring no hematuria in his urine. CT does confirm colitis. Due to the prolonged length of pain will put him on a course of antibiotics to see if it improves. Discharge Plan Departure Patient Disposition: Home Clinical Impression: Colitis Instructions: DI for Colitis Activity Restrictions/Additional Instructions: *You have been diagnosed with colitis *What to do: At this time will try antibiotics *Continue to take medications as directed Cipro 500mg twice a day for 7 day Flagyl 500 mg 3 times a day for 7 Tylenol 650 mg every 4-6 hours if needed for [id number] pain *Follow up with your primary care provider in 2-3 days or call [phone] *Return to ER if you should have increasing pain, bloody stools, fevers, any new, worsening or concerning symptoms Prescriptions: New metronidazole 500 mg tablet 500 mg PO Q8H 7 Days Qty: 21 0RF cephalexin 500 mg capsule 500 mg PO BID 7 Days Qty: 14 0RF ciprofloxacin HCl [Cipro] 500 mg tablet 500 mg PO BID Qty: 14 0RF No Action dextroamphetamine-amphetamine 20 mg capsule,extended release 24hr 20 mg PO DAILY 0RF buprenorphine-naloxone [Suboxone] 12-3 mg film 1 film sublingual DAILY 0RF aripiprazole [Abilify] 15 mg Tablet 15 mg PO DAILY 0RF clonazepam 0.5 mg Tablet 0.25 mg PO BID 0RF mirtazapine 45 mg Tablet 45 mg PO BEDTIME 0RF hydroxyzine HCl 50 mg Tablet 50 mg PO TID PRN (Reason: Anxiety) 0RF prazosin 1 mg Capsule 1 mg PO BEDTIME 0RF citalopram 40 mg Tablet 40 mg PO DAILY 0RF buprenorphine-naloxone [Suboxone] 12-3 mg Film 1 film BUCCAL BID 0RF Referrals: Cathryn Flores PA-C [Primary Care Provider] -
--- NOTE | 2021-05-10 13:11 | DI.CT.S_ITS ---
PROCEDURE: CT ABDOMEN PELVIS W CON INDICATIONS: llq pain TECHNIQUE: After the administration of intravenous contrast, axial sections acquired from the lung bases to the pubic symphysis. Coronal and sagittal reformats were performed. For radiation dose reduction, the following was used: automated exposure control, adjustment of mA and/or kV according to patient size. COMPARISON: None. FINDINGS: Image quality: Excellent. Lung bases: Dependent atelectasis in posterior aspect of bilateral lung bases are seen more prominent in right lung base. No pleural effusion or pneumothorax. Heart: No significant findings. ABDOMEN: Liver: There is mild hepatic steatosis, no discrete hepatic lesion is noted. Gallbladder: Gallbladder is within normal limits. Biliary ducts: Unremarkable. Pancreas: Unremarkable. Spleen: Spleen is normal in size and enhancement. A small splenule is noted. Adrenal Glands: Unremarkable. Kidneys and Ureters: Unremarkable. Stomach and Bowel: There is no bowel obstruction. No gastric or small bowel wall thickening. Appendix is visualized and is within normal limits. Mesenteric fat stranding adjacent to proximal descending colon just distal to splenic flexure is noted without significant adjacent colonic wall thickening, early focal colitis cannot be entirely excluded. No abscess collection is seen. Peritoneum: No abnormal intraperitoneal fluid. No free air. Ventral Wall: No hernias. Abdominal Nodes: No retroperitoneal or mesenteric adenopathy by size criteria. Vessels: Aorta and inferior vena cava are normal in size. PELVIS: Pelvic Organs: Unremarkable. Bladder: Unremarkable. Pelvic Nodes: No enlarged lymph nodes. Miscellaneous: No hernias are seen. Bones: No suspicious bony lesion. No acute vertebral body compression fracture. IMPRESSION: 1. Focal area of pericolonic fat stranding lateral to the proximal descending colon just distal to splenic flexure and may represent focal area of colitis . No other area of mesenteric fat stranding or abnormal bowel wall thickening. Appendix is visualized and is within normal limits. No abscess collection. No free fluid or free air. 2. Hepatic steatosis, no discrete hepatic lesion. 3. Bibasilar dependent atelectasis posteriorly. Dictated by: Casey Carter M.D. on 05/10/2021 at 14:11 Approved by: Casey Carter M.D. on 05/10/2021 at 14:16
[2021-05-10 13:33] LABS: Add Manual Diff / Slide Review NO; Basophils Absolute Auto 100 /uL (0-100); Basophils Percent Auto 1.3 % (0-2); Eosinophils Absolute Auto 400 /uL (0-450); Eosinophils Percent Auto 4.8 % (2-4); Hematocrit 42.9 % (41-53); Hemoglobin 14.8 g/dL (13.5-17.5); Lymphocytes Absolute Auto 1800 /uL (1100-4500); Lymphocytes Percent Auto 23.2 % (25-40); Mean Corpuscular HGB Conc 34.6 % (30-36); Mean Corpuscular Hemoglobin 29.6 PG (26-34); Mean Corpuscular Volume 85.7 fL (80-100); Monocytes Absolute Auto 800 /uL (0-900); Monocytes Percent Auto 10.8 % (3-14); Neutrophils Absolute Auto 4600 /uL (1500-7000); Neutrophils Percent Auto 59.9 % (50-75); Platelet Count 274 X10^3/uL (150-400); Red Blood Cell Count 5.01 X10^6/uL (4.5-5.9); Red Cell Distribution Width 14.2 % (11.6-14.8); White Blood Cell Count 7.7 X10^3/uL (4.5-11.0)
[2021-05-10 14:11] LABS: Alanine Aminotransferase 29 IU/L (<50); Albumin 4.1 g/dL (3.5-5.0); Albumin Globulin Ratio 0.9 (1.0-2.8); Alkaline Phosphatase 92 U/L (38-126); Aspartate Aminotransferase 49 IU/L (17-59); Bilirubin Total 0.9 mg/dL (0.2-1.3); Blood Urea Nitrogen 10 mg/dL (9-20); Carbon Dioxide 28 mmol/L (22-32); Chloride 103 mmol/L (98-107); Globulin 4.6 g/dL (1.7-4.1); Glucose 90 mg/dL (70-100); HEMOLYSIS 24 (0-50); Lipase 40 U/L (23-300); Sodium 138 mmol/L (137-145); Total Protein 8.7 g/dL (6.3-8.2)
[2021-05-10 14:48] VITALS: BP 111/75; PULSE 67; O2SAT 95
== END 2021-05-10 14:50 | disposition home or self-care (01) ==
PROVIDERS: Emergency Provider Emergency Medicine; PCP Physician Assistant
DX: K52.9 Noninfective gastroenteritis and colitis, unspecified (principal); F17.220 Nicotine dependence, chewing tobacco, uncomplicated
CPT/HCPCS: 36415; 74177; 80053; 81003; 83690; 85025; 99284; Q9967

== ENCOUNTER 2021-05-25 13:33 | Emergency (ER) | payer OTHER, MEDICAID, SELFPAY ==
[2020-11-08 15:33] VITALS: BMI 35.9
[2021-05-25 13:40] VITALS: BP 112/84; PULSE 100; RESP 20; TEMP 36.5; O2SAT 95; BMI 34.0
[2021-05-25 14:12] LABS: COVID19 -Nasal RAPID Negative (Negative)
--- NOTE | 2021-05-25 15:52 | PC.NURSE ---
Called for chest x ray @ 1525, no answer. Called 2nd time for chest x ray 1545, no answer Called to room pt @ 1550, no answer.
== END 2021-05-25 15:53 | disposition left against medical advice (07) ==
PROVIDERS: Emergency Provider Emergency Medicine; PCP Physician Assistant
DX: Z53.21 Procedure and treatment not carried out due to patient leaving prior to being seen by health care provider (principal); Z20.822 Contact with and (suspected) exposure to COVID-19
CPT/HCPCS: 87635; 99281; C9803

== ENCOUNTER 2022-04-05 04:37 | Emergency (ER) | payer OTHER, MEDICAID, SELFPAY ==
[2020-11-08 15:33] VITALS: BMI 35.9
[2022-04-05 04:40] VITALS: BP 122/82; PULSE 137; RESP 20; TEMP 36.3; O2SAT 100; BMI 35.9
--- NOTE | 2022-04-05 05:04 | ED_ITS ---
HPI - Psych <Kaushal Mar, DO - Last Filed: 04/05/22 18:11> General Chief Complaint: Psychiatric Symptoms Stated Complaint: hallucinations for 3 days, someone chasing him Time Seen by Provider: 04/05/22 04:41 Source: patient and family (Mother) Mode of arrival: Ambulatory History of Present Illness HPI Narrative: Patient is a 46-year-old male. History of TBI. Also has history of opioid abuse. Is here for evaluation of 3 days of hallucinations. He states is both visual and auditory hallucinations. It seems to be more auditory the visual. He states he is hearing voices. They are telling him to kill himself. They are also telling him that people were out to get him. They are telling him that the police are out to kill him. He is not been on any of his medicines for least the past day. He is not been on Abilify for the past 3 days. He is had tremors and his mom who is with him at bedside states they have been stopping his medications to see if his tremors were improving. That is why this stop the Abilify 3 days ago. His symptoms have been worsening. His mom states that they made a deal unless evening that if his symptoms would at better this morning that they would come to the emergency department. He does have a mental health provider but has not seen that provider since before which was about 1 month ago. Patient does report having quite a bit of anxiety. He states that he is concerned about hurting himself at home. He thinks that he would probably take all of his pills at once. His mother has control of his medications. Denied any alcohol or drug use. Related Data Home Medications Medication Instructions Recorded Confirmed buprenorphine 12 mg-naloxone 3 mg 1 film sublingual BID 11/09/20 04/05/22 sublingual film (Suboxone) clonazepam 0.5 mg tablet 1 mg PO BID 11/09/20 04/05/22 hydroxyzine HCl 50 mg tablet 50 mg PO BID 11/09/20 04/05/22 aripiprazole 5 mg tablet 2.5 mg PO BEDTIME 04/05/22 04/05/22 bupropion HCl 100 mg tablet 100 mg PO BID 04/05/22 04/05/22 prazosin 2 mg capsule 2 mg PO BEDTIME 04/05/22 04/05/22 venlafaxine 75 mg capsule,extended 75 mg PO DAILY 04/05/22 04/05/22 release 24 hr Allergies Allergy/AdvReac Type Severity Reaction Status Date / Time No Known Drug Allergies Allergy Verified 05/10/21 11:29 Review of Systems <Kaushal Mar DO - Last Filed: 04/05/22 18:11> Cardiovascular Cardiovascular: Reports system reviewed and no additional complaints, except as documented Respiratory Respiratory: Reports system reviewed and no additional complaints, except as documented Gastrointestinal Gastrointestinal: Reports system reviewed and no additional complaints, except as documented Integumentary/Breasts Skin/Breast: Reports system reviewed and no additional complaints, except as documented Psychiatric Psychiatric: Reports system reviewed and no additional complaints, except as documented Patient History <DO Chelsi Singh Last Filed: 04/05/22 18:11> Medical History ADHD Depression Opioid use disorder Psychiatric disorder Social History household members: spouse Smoking Status: Never smoker Smoking Status: Never smoker tobacco type: smokeless tobacco alcohol intake frequency: holidays/special occasions only Substance Use Type: does not use Exam <Kaushal Mar DO - Last Filed: 04/05/22 18:11> Initial Vital Signs Initial Vital Signs: Vital Signs Temperature 97.3 F L 04/05/22 04:40 Pulse Rate 137 H 04/05/22 04:40 Respiratory Rate 20 04/05/22 04:40 Blood Pressure 122/82 04/05/22 04:40 Pulse Oximetry 100 04/05/22 04:40 Oxygen Delivery Method 04/05/22 04:40 HENIL Head: normal to inspection and normocephalic Resp Effort & Inspection: normal respiratory effort Cardio Rate: tachycardic Skin General: no rashes or lesions noted Neuro General: patient alert, patient awake and moves all extremities Psych Other: Patient is alert. He does seem somewhat anxious. He does endorse suicidal ideation and also anxiety and both auditory and visual hallucinations. He is cooperative. <Darleen Davalos, DO - Last Filed: 04/05/22 19:09> Initial Vital Signs Initial Vital Signs: Vital Signs Temperature 97.3 F L 04/05/22 04:40 Pulse Rate 137 H 04/05/22 04:40 Respiratory Rate 20 04/05/22 04:40 Blood Pressure 122/82 04/05/22 04:40 Pulse Oximetry 100 04/05/22 04:40 Oxygen Delivery Method 04/05/22 04:40 Course <Kaushal EdgeDO lashaun - Last Filed: 04/05/22 18:11> Orders Ordered: ED Orders 04/05/22 11:05 EKG-12 Lead Stat 04/05/22 14:55 Urine Drug Screen, Rapid Stat Urine Microscopic Stat Diazepam (Diazepam 2 Mg Tablet) 2 mg PO Q4HR PRN PRN Reason: Anxiety Last Admin: 04/05/22 17:50 Dose: 2 mg Documented By: Admin: 04/05/22 12:15 Dose: 2 mg Documented By: AYE Suboxone ( Buprenorphine/Naloxone) 12/3mg Sl Film 1 each SL BID YAMILKA Last Admin: 04/05/22 14:30 Dose: 1 each Documented By: AYE Discontinued Medications Diphenhydramine HCl (Diphenhydramine 50 Mg/Ml Vial) 50 mg IM NOW ONE Stop: 04/05/22 08:12 Last Admin: 04/05/22 08:29 Dose: 50 mg Documented By: ZABRINA Haloperidol (Haloperidol 5 Mg/Ml Vial) 10 mg IM NOW ONE Stop: 04/05/22 08:12 Last Admin: 04/05/22 08:30 Dose: 10 mg Documented By: ZABRINA Lorazepam (Lorazepam 0.5 Mg Tablet) 1 mg PO NOW ONE Stop: 04/05/22 05:54 Last Admin: 04/05/22 06:05 Dose: 1 mg Documented By: FOREST Lorazepam (Lorazepam 0.5 Mg Tablet) 2 mg PO NOW ONE Stop: 04/05/22 09:49 Last Admin: 04/05/22 09:54 Dose: 2 mg Documented By: SAMI Nicotine (Nicotine 21 Mg Patch) 21 mg TOP NOW ONE Stop: 04/05/22 08:44 Last Admin: 04/05/22 09:31 Dose: 21 mg Documented By: SAMI Olanzapine (Olanzapine Odt 10 Mg Tab) 10 mg PO NOW ONE Stop: 04/05/22 05:01 Last Admin: 04/05/22 05:06 Dose: 10 mg Documented By: FOREST Olanzapine (Olanzapine Odt 10 Mg Tab) 10 mg PO NOW ONE Stop: 04/05/22 18:56 Last Admin: 04/05/22 18:59 Dose: 10 mg Documented By: AYE Vital Signs Vital signs: Vital Signs - 8 hr 04/05/22 11:08 Temperature 98.5 F Pulse Rate 105 H Respiratory Rate 20 Blood Pressure 127/76 Pulse Oximetry 97 Oxygen Delivery Method Room Air <Darleenrosy Davalos - Last Filed: 04/05/22 19:09> Orders Ordered: ED Orders 04/05/22 11:05 EKG-12 Lead Stat 04/05/22 14:55 Urine Drug Screen, Rapid Stat Urine Microscopic Stat Diazepam (Diazepam 2 Mg Tablet) 2 mg PO Q4HR PRN PRN Reason: Anxiety Last Admin: 04/05/22 17:50 Dose: 2 mg Documented By: Admin: 04/05/22 12:15 Dose: 2 mg Documented By: AYE Suboxone ( Buprenorphine/Naloxone) 12/3mg Sl Film 1 each SL BID YAMILKA Last Admin: 04/05/22 14:30 Dose: 1 each Documented By: AYE Discontinued Medications Diphenhydramine HCl (Diphenhydramine 50 Mg/Ml Vial) 50 mg IM NOW ONE Stop: 04/05/22 08:12 Last Admin: 04/05/22 08:29 Dose: 50 mg Documented By: ZABRINA Haloperidol (Haloperidol 5 Mg/Ml Vial) 10 mg IM NOW ONE Stop: 04/05/22 08:12 Last Admin: 04/05/22 08:30 Dose: 10 mg Documented By: ZABRINA Lorazepam (Lorazepam 0.5 Mg Tablet) 1 mg PO NOW ONE Stop: 04/05/22 05:54 Last Admin: 04/05/22 06:05 Dose: 1 mg Documented By: FOREST Lorazepam (Lorazepam 0.5 Mg Tablet) 2 mg PO NOW ONE Stop: 04/05/22 09:49 Last Admin: 04/05/22 09:54 Dose: 2 mg Documented By: SAMI Nicotine (Nicotine 21 Mg Patch) 21 mg TOP NOW ONE Stop: 04/05/22 08:44 Last Admin: 04/05/22 09:31 Dose: 21 mg Documented By: SAMI Olanzapine (Olanzapine Odt 10 Mg Tab) 10 mg PO NOW ONE Stop: 04/05/22 05:01 Last Admin: 04/05/22 05:06 Dose: 10 mg Documented By: FOREST Olanzapine (Olanzapine Odt 10 Mg Tab) 10 mg PO NOW ONE Stop: 04/05/22 18:56 Last Admin: 04/05/22 18:59 Dose: 10 mg Documented By: RB Vital Signs Vital signs: Vital Signs - 8 hr 04/05/22 11:08 Temperature 98.5 F Pulse Rate 105 H Respiratory Rate 20 Blood Pressure 127/76 Pulse Oximetry 97 Oxygen Delivery Method Room Air MDM - Psych <Kaushal Mar DO - Last Filed: 04/05/22 18:11> Differential Diagnosis Differential diagnosis: Likely acute psychosis, chronic schizophrenia, suicidal ideation, bipolar disorder, depression, drug-induced psychotic disorder and acute anxiety Chronic Condition is having:: Severe exacerbation Medical Records Attestation: I reviewed the patient's medical records. Lab Data 04/05/22 06:24 04/05/22 06:24 Labs: Lab Results 04/05/22 04/05/22 04/05/22 Range/Units 06:24 06:24 06:24 WBC 8.7 (4.5-11.0) X10^3/uL RBC 4.98 (4.5-5.9) X10^6/uL Hgb 14.4 (13.5-17.5) g/dL Hct 42.2 (41-53) % MCV 84.7 (80-100) fL MCH 28.9 (26-34) PG MCHC 34.1 (30-36) % RDW 13.5 (11.6-14.8) % Plt Count 259 (150-400) X10^3/uL Neut % (Auto) 71.6 (50-75) % Lymph % (Auto) 18.5 L (25-40) % [place] % (Auto) 7.9 (3-14) % Eos % (Auto) 1.1 L (2-4) % Baso % (Auto) 0.9 (0-2) % Neut # (Auto) 6200 (3526-2451) /uL Lymph # (Auto) 1600 (1464-7224) /uL [place] # (Auto) 700 (0-900) /uL Eos # (Auto) 100 (0-450) /uL Baso # (Auto) 100 (0-100) /uL Sodium 136 L (137-145) mmol/L Potassium 4.2 (3.4-5.1) mmol/L Chloride 101 (98-107) mmol/L Carbon Dioxide 25 (22-32) mmol/L BUN 14 (9-20) mg/dL Creatinine 1.43 H (0.66-1.25) mg/dL Estimated GFR > 60 (>60) mL/min BUN/Creatinine Ratio 9.8 (6-22) Glucose 114 H (70-100) mg/dL Calcium 8.8 (8.4-10.2) mg/dL Total Bilirubin 1.4 H (0.2-1.3) mg/dL AST 27 (17-59) IU/L ALT 25 (<50) IU/L Alkaline Phosphatase 92 (38-126) U/L Total Protein 8.2 (6.3-8.2) g/dL Albumin 3.9 (3.5-5.0) g/dL Globulin 4.3 H (1.7-4.1) g/dL Albumin/Globulin Ratio 0.9 L (1.0-2.8) Lipase 29 (23-300) U/L TSH (0.47-4.68) uIU/mL Urine RBC (0-5/HPF) Urine WBC (0-5/HPF) Ur Squamous Epith Cells (0-5/HPF) Urine Bacteria (None) Ur Culture Indicated? Salicylates < 1.0 (<20) mg/dL U Opiates 300ng/mL cut (Negative) Ur Oxycodone Screen (Negative) Urine Methadone Screen (Negative) Acetaminophen < 10 (10-30) ug/mL Ur Barbiturates Screen (Negative) U Tricyclic Antidepress (Negative) Ur Phencyclidine Scrn (Negative) Ur Amphetamines Screen (Negative) U Methamphetamines Scrn (Negative) Ur MDMA Scrn (Ecstasy) (Negative) U Benzodiazepines Scrn (Negative) Urine Cocaine Screen (Negative) U Marijuana (THC) Screen (Negative) Ethyl Alcohol < 10 ( - 10) mg/dL SARS-CoV-2 (PCR) (Negative) 04/05/22 04/05/22 04/05/22 Range/Units 06:24 06:24 14:55 WBC (4.5-11.0) X10^3/uL RBC (4.5-5.9) X10^6/uL Hgb (13.5-17.5) g/dL Hct (41-53) % MCV (80-100) fL MCH (26-34) PG MCHC (30-36) % RDW (11.6-14.8) % Plt Count (150-400) X10^3/uL Neut % (Auto) (50-75) % Lymph % (Auto) (25-40) % [place] % (Auto) (3-14) % Eos % (Auto) (2-4) % Baso % (Auto) (0-2) % Neut # (Auto) (8777-1407) /uL Lymph # (Auto) (4413-5113) /uL [place] # (Auto) (0-900) /uL Eos # (Auto) (0-450) /uL Baso # (Auto) (0-100) /uL Sodium (137-145) mmol/L Potassium (3.4-5.1) mmol/L Chloride (98-107) mmol/L Carbon Dioxide (22-32) mmol/L BUN (9-20) mg/dL Creatinine (0.66-1.25) mg/dL Estimated GFR (>60) mL/min BUN/Creatinine Ratio (6-22) Glucose (70-100) mg/dL Calcium (8.4-10.2) mg/dL Total Bilirubin (0.2-1.3) mg/dL AST (17-59) IU/L ALT (<50) IU/L Alkaline Phosphatase (38-126) U/L Total Protein (6.3-8.2) g/dL Albumin (3.5-5.0) g/dL Globulin (1.7-4.1) g/dL Albumin/Globulin Ratio (1.0-2.8) Lipase (23-300) U/L TSH 3.55 (0.47-4.68) uIU/mL Urine RBC (0-5/HPF) Urine WBC (0-5/HPF) Ur Squamous Epith Cells (0-5/HPF) Urine Bacteria (None) Ur Culture Indicated? Salicylates (<20) mg/dL U Opiates 300ng/mL cut Negative (Negative) Ur Oxycodone Screen Negative (Negative) Urine Methadone Screen Negative (Negative) Acetaminophen (10-30) ug/mL Ur Barbiturates Screen Negative (Negative) U Tricyclic Antidepress Negative (Negative) Ur Phencyclidine Scrn Negative (Negative) Ur Amphetamines Screen Negative (Negative) U Methamphetamines Scrn Negative (Negative) Ur MDMA Scrn (Ecstasy) Negative (Negative) U Benzodiazepines Scrn Positive H (Negative) Urine Cocaine Screen Negative (Negative) U Marijuana (THC) Screen Negative (Negative) Ethyl Alcohol ( - 10) mg/dL SARS-CoV-2 (PCR) Negative (Negative) 04/05/22 Range/Units 14:55 WBC (4.5-11.0) X10^3/uL RBC (4.5-5.9) X10^6/uL Hgb (13.5-17.5) g/dL Hct (41-53) % MCV (80-100) fL MCH (26-34) PG MCHC (30-36) % RDW (11.6-14.8) % Plt Count (150-400) X10^3/uL Neut % (Auto) (50-75) % Lymph % (Auto) (25-40) % [place] % (Auto) (3-14) % Eos % (Auto) (2-4) % Baso % (Auto) (0-2) % Neut # (Auto) (1045-1512) /uL Lymph # (Auto) (6073-1895) /uL [place] # (Auto) (0-900) /uL Eos # (Auto) (0-450) /uL Baso # (Auto) (0-100) /uL Sodium (137-145) mmol/L Potassium (3.4-5.1) mmol/L Chloride (98-107) mmol/L Carbon Dioxide (22-32) mmol/L BUN (9-20) mg/dL Creatinine (0.66-1.25) mg/dL Estimated GFR (>60) mL/min BUN/Creatinine Ratio (6-22) Glucose (70-100) mg/dL Calcium (8.4-10.2) mg/dL Total Bilirubin (0.2-1.3) mg/dL AST (17-59) IU/L ALT (<50) IU/L Alkaline Phosphatase (38-126) U/L Total Protein (6.3-8.2) g/dL Albumin (3.5-5.0) g/dL Globulin (1.7-4.1) g/dL Albumin/Globulin Ratio (1.0-2.8) Lipase (23-300) U/L TSH (0.47-4.68) uIU/mL Urine RBC None seen (0-5/HPF) Urine WBC 0-1/hpf (0-5/HPF) Ur Squamous Epith Cells 0-1 /hpf (0-5/HPF) Urine Bacteria Occasional (0-1) (None) Ur Culture Indicated? Cult not indicated Salicylates (<20) mg/dL U Opiates 300ng/mL cut (Negative) Ur Oxycodone Screen (Negative) Urine Methadone Screen (Negative) Acetaminophen (10-30) ug/mL Ur Barbiturates Screen (Negative) U Tricyclic Antidepress (Negative) Ur Phencyclidine Scrn (Negative) Ur Amphetamines Screen (Negative) U Methamphetamines Scrn (Negative) Ur MDMA Scrn (Ecstasy) (Negative) U Benzodiazepines Scrn (Negative) Urine Cocaine Screen (Negative) U Marijuana (THC) Screen (Negative) Ethyl Alcohol ( - 10) mg/dL SARS-CoV-2 (PCR) (Negative) MDM Narrative Medical decision making narrative: Patient admits to having both auditory and visual hallucinations. He is also very anxious. He agreed to take oral medications to try to help him with his symptoms. After the Zyprexa he stated that he was feeling somewhat better but his mother at bedside not think that it had actually help all that much. He is still having hallucinations. He agreed for more medication. He also agreed to allow us to draw blood. Care turned over to Dr. Davalos to continue to evaluate and disposition. <Darleen Davalos, DO - Last Filed: 04/05/22 19:09> Lab Data Labs: Lab Results 04/05/22 04/05/22 04/05/22 Range/Units 06:24 06:24 06:24 WBC 8.7 (4.5-11.0) X10^3/uL RBC 4.98 (4.5-5.9) X10^6/uL Hgb 14.4 (13.5-17.5) g/dL Hct 42.2 (41-53) % MCV 84.7 (80-100) fL MCH 28.9 (26-34) PG MCHC 34.1 (30-36) % RDW 13.5 (11.6-14.8) % Plt Count 259 (150-400) X10^3/uL Neut % (Auto) 71.6 (50-75) % Lymph % (Auto) 18.5 L (25-40) % [place] % (Auto) 7.9 (3-14) % Eos % (Auto) 1.1 L (2-4) % Baso % (Auto) 0.9 (0-2) % Neut # (Auto) 6200 (5795-3784) /uL Lymph # (Auto) 1600 (0529-5461) /uL [place] # (Auto) 700 (0-900) /uL Eos # (Auto) 100 (0-450) /uL Baso # (Auto) 100 (0-100) /uL Sodium 136 L (137-145) mmol/L Potassium 4.2 (3.4-5.1) mmol/L Chloride 101 (98-107) mmol/L Carbon Dioxide 25 (22-32) mmol/L BUN 14 (9-20) mg/dL Creatinine 1.43 H (0.66-1.25) mg/dL Estimated GFR > 60 (>60) mL/min BUN/Creatinine Ratio 9.8 (6-22) Glucose 114 H (70-100) mg/dL Calcium 8.8 (8.4-10.2) mg/dL Total Bilirubin 1.4 H (0.2-1.3) mg/dL AST 27 (17-59) IU/L ALT 25 (<50) IU/L Alkaline Phosphatase 92 (38-126) U/L Total Protein 8.2 (6.3-8.2) g/dL Albumin 3.9 (3.5-5.0) g/dL Globulin 4.3 H (1.7-4.1) g/dL Albumin/Globulin Ratio 0.9 L (1.0-2.8) Lipase 29 (23-300) U/L TSH (0.47-4.68) uIU/mL Urine RBC (0-5/HPF) Urine WBC (0-5/HPF) Ur Squamous Epith Cells (0-5/HPF) Urine Bacteria (None) Ur Culture Indicated? Salicylates < 1.0 (<20) mg/dL U Opiates 300ng/mL cut (Negative) Ur Oxycodone Screen (Negative) Urine Methadone Screen (Negative) Acetaminophen < 10 (10-30) ug/mL Ur Barbiturates Screen (Negative) U Tricyclic Antidepress (Negative) Ur Phencyclidine Scrn (Negative) Ur Amphetamines Screen (Negative) U Methamphetamines Scrn (Negative) Ur MDMA Scrn (Ecstasy) (Negative) U Benzodiazepines Scrn (Negative) Urine Cocaine Screen (Negative) U Marijuana (THC) Screen (Negative) Ethyl Alcohol < 10 ( - 10) mg/dL SARS-CoV-2 (PCR) (Negative) 04/05/22 04/05/22 04/05/22 Range/Units 06:24 06:24 14:55 WBC (4.5-11.0) X10^3/uL RBC (4.5-5.9) X10^6/uL Hgb (13.5-17.5) g/dL Hct (41-53) % MCV (80-100) fL MCH (26-34) PG MCHC (30-36) % RDW (11.6-14.8) % Plt Count (150-400) X10^3/uL Neut % (Auto) (50-75) % Lymph % (Auto) (25-40) % [place] % (Auto) (3-14) % Eos % (Auto) (2-4) % Baso % (Auto) (0-2) % Neut # (Auto) (5080-1657) /uL Lymph # (Auto) (2666-0312) /uL [place] # (Auto) (0-900) /uL Eos # (Auto) (0-450) /uL Baso # (Auto) (0-100) /uL Sodium (137-145) mmol/L Potassium (3.4-5.1) mmol/L Chloride (98-107) mmol/L Carbon Dioxide (22-32) mmol/L BUN (9-20) mg/dL Creatinine (0.66-1.25) mg/dL Estimated GFR (>60) mL/min BUN/Creatinine Ratio (6-22) Glucose (70-100) mg/dL Calcium (8.4-10.2) mg/dL Total Bilirubin (0.2-1.3) mg/dL AST (17-59) IU/L ALT (<50) IU/L Alkaline Phosphatase (38-126) U/L Total Protein (6.3-8.2) g/dL Albumin (3.5-5.0) g/dL Globulin (1.7-4.1) g/dL Albumin/Globulin Ratio (1.0-2.8) Lipase (23-300) U/L TSH 3.55 (0.47-4.68) uIU/mL Urine RBC (0-5/HPF) Urine WBC (0-5/HPF) Ur Squamous Epith Cells (0-5/HPF) Urine Bacteria (None) Ur Culture Indicated? Salicylates (<20) mg/dL U Opiates 300ng/mL cut Negative (Negative) Ur Oxycodone Screen Negative (Negative) Urine Methadone Screen Negative (Negative) Acetaminophen (10-30) ug/mL Ur Barbiturates Screen Negative (Negative) U Tricyclic Antidepress Negative (Negative) Ur Phencyclidine Scrn Negative (Negative) Ur Amphetamines Screen Negative (Negative) U Methamphetamines Scrn Negative (Negative) Ur MDMA Scrn (Ecstasy) Negative (Negative) U Benzodiazepines Scrn Positive H (Negative) Urine Cocaine Screen Negative (Negative) U Marijuana (THC) Screen Negative (Negative) Ethyl Alcohol ( - 10) mg/dL SARS-CoV-2 (PCR) Negative (Negative) 04/05/22 Range/Units 14:55 WBC (4.5-11.0) X10^3/uL RBC (4.5-5.9) X10^6/uL Hgb (13.5-17.5) g/dL Hct (41-53) % MCV (80-100) fL MCH (26-34) PG MCHC (30-36) % RDW (11.6-14.8) % Plt Count (150-400) X10^3/uL Neut % (Auto) (50-75) % Lymph % (Auto) (25-40) % [place] % (Auto) (3-14) % Eos % (Auto) (2-4) % Baso % (Auto) (0-2) % Neut # (Auto) (7275-9978) /uL Lymph # (Auto) (3967-9506) /uL [place] # (Auto) (0-900) /uL Eos # (Auto) (0-450) /uL Baso # (Auto) (0-100) /uL Sodium (137-145) mmol/L Potassium (3.4-5.1) mmol/L Chloride (98-107) mmol/L Carbon Dioxide (22-32) mmol/L BUN (9-20) mg/dL Creatinine (0.66-1.25) mg/dL Estimated GFR (>60) mL/min BUN/Creatinine Ratio (6-22) Glucose (70-100) mg/dL Calcium (8.4-10.2) mg/dL Total Bilirubin (0.2-1.3) mg/dL AST (17-59) IU/L ALT (<50) IU/L Alkaline Phosphatase (38-126) U/L Total Protein (6.3-8.2) g/dL Albumin (3.5-5.0) g/dL Globulin (1.7-4.1) g/dL Albumin/Globulin Ratio (1.0-2.8) Lipase (23-300) U/L TSH (0.47-4.68) uIU/mL Urine RBC None seen (0-5/HPF) Urine WBC 0-1/hpf (0-5/HPF) Ur Squamous Epith Cells 0-1 /hpf (0-5/HPF) Urine Bacteria Occasional (0-1) (None) Ur Culture Indicated? Cult not indicated Salicylates (<20) mg/dL U Opiates 300ng/mL cut (Negative) Ur Oxycodone Screen (Negative) Urine Methadone Screen (Negative) Acetaminophen (10-30) ug/mL Ur Barbiturates Screen (Negative) U Tricyclic Antidepress (Negative) Ur Phencyclidine Scrn (Negative) Ur Amphetamines Screen (Negative) U Methamphetamines Scrn (Negative) Ur MDMA Scrn (Ecstasy) (Negative) U Benzodiazepines Scrn (Negative) Urine Cocaine Screen (Negative) U Marijuana (THC) Screen (Negative) Ethyl Alcohol ( - 10) mg/dL SARS-CoV-2 (PCR) (Negative) ECG Data Attestation: I personally reviewed and interpreted this ECG as follows: Interpretation: Patient had EKG sinus tachycardia rate of 1 0 9p are 176 QRS 82 and QTC 439. No acute ST elevation. Nonspecific. MDM Narrative Medical decision making narrative: Patient admits to having both auditory and visual hallucinations. He is also v luanne anxious. He agreed to take oral medications to try to help him with his symptoms. After the Zyprexa he stated that he was feeling somewhat better but his mother at bedside not think that it had actually help all that much. He is still having hallucinations. He agreed for more medication. He also agreed to allow us to draw blood. Care turned over to Dr. Davalos to continue to evaluate and disposition. 04/05/22 Anoop: Patient signed out to myself. No confirmed TBI history at this time. Patient seen independently evaluated by myself he admits to hallucinations particularly auditory. He is very anxious he is very concerned someone is out to get him. Unclear if he is suicidal it sounds like he is more afraid someone is going to harm him when I talk to him. Patient did try to leave the department but was verbally redirectable and when asked if we can try to help him he states yes. He agreed to some additional medication when asked if he would prefer oral or injection he states either 1 is fine. Patient does seem to be responding to some internal stimuli. He denies any intent to harm others he denies intent to harm himself currently. He denies tobacco, states he chews. He denies methamphetamines. Patient was accepted at [facility] pending urine drug screen. This returned as positive for benzodiazepines but we did give him benzos today. Otherwise negative. Patient has been redirectable but does appear quite disabled he is voluntary and willing to go at this time. He is had several medications. His did bring in his Suboxone which he is supposed to take twice daily and was given dose. Patient is accepted at [facility] by [facility] for transfer with plan for transport at 1745 tonight. Discharge Plan Departure Patient Disposition: Home Clinical Impression: Psychosis Activity Restrictions/Additional Instructions: Please follow-up for recheck in 2-3 more days for suture removal. Your prescription for antibiotics was sent, take 1 tablet every 4 hours for 5 days. Prescription sent to [facility] Wound Care: Keep wound(s) clean and dry. Wash daily with soap and water only. Do not use over the counter products (alcohol or peroxide)on the wounds unless instructed by a physician. If wound condition worsens (increased/expanding redness, developing fluid blisters, or worsening pain), either contact your doctor for an urgent re-a ssessment , or return to the Emergency Department. Return to the Emergency Department for any new or worsening symptoms. Return to the ED, urgent care, or vist a primary care doctor for removal or s uture or mian Return if fever greater than 100.4 Fahrenheit, increased swelling, increasing pain or worsening symptoms such as increased discharge or spreading redness. Prescriptions: No Action venlafaxine 75 mg capsule,extended release 24hr 75 mg PO DAILY prazosin 2 mg capsule 2 mg PO BEDTIME aripiprazole 5 mg tablet 2.5 mg PO BEDTIME bupropion HCl 100 mg tablet 100 mg PO BID buprenorphine-naloxone [Suboxone] 12-3 mg film 1 film sublingual BID clonazepam 0.5 mg Tablet 1 mg PO BID hydroxyzine HCl 50 mg Tablet 50 mg PO BID Referrals: Cathryn Flores PA-C [Primary Care Provider] - Stand Alone Forms: Patient Portal/API
[2022-04-05] MEDS: OLANZapine ODT 10 MG TAB PO ×2 (05:06→18:59)
[2022-04-05] MEDS: LORazepam 0.5 MG TABLET 1 MG PO (06:05)
[2022-04-05 06:28] VITALS: BP 111/72; PULSE 100; RESP 18; O2SAT 93
[2022-04-05 06:38] LABS: Add Manual Diff / Slide Review NO; Basophils Absolute Auto 100 /uL (0-100); Basophils Percent Auto 0.9 % (0-2); Eosinophils Absolute Auto 100 /uL (0-450); Eosinophils Percent Auto 1.1 % (2-4); Hematocrit 42.2 % (41-53); Hemoglobin 14.4 g/dL (13.5-17.5); Lymphocytes Absolute Auto 1600 /uL (1100-4500); Lymphocytes Percent Auto 18.5 % (25-40); Mean Corpuscular HGB Conc 34.1 % (30-36); Mean Corpuscular Hemoglobin 28.9 PG (26-34); Mean Corpuscular Volume 84.7 fL (80-100); Monocytes Absolute Auto 700 /uL (0-900); Monocytes Percent Auto 7.9 % (3-14); Neutrophils Absolute Auto 6200 /uL (1500-7000); Neutrophils Percent Auto 71.6 % (50-75); Platelet Count 259 X10^3/uL (150-400); Red Blood Cell Count 4.98 X10^6/uL (4.5-5.9); Red Cell Distribution Width 13.5 % (11.6-14.8); White Blood Cell Count 8.7 X10^3/uL (4.5-11.0)
[2022-04-05 06:50] LABS: Acetaminophen < 10 ug/mL (10-30)
[2022-04-05 06:52] LABS: Alanine Aminotransferase 25 IU/L (<50); Albumin 3.9 g/dL (3.5-5.0); Albumin Globulin Ratio 0.9 (1.0-2.8); Alkaline Phosphatase 92 U/L (38-126); Aspartate Aminotransferase 27 IU/L (17-59); BUN Creatinine Ratio 9.8 (6-22); Bilirubin Total 1.4 mg/dL (0.2-1.3); Blood Urea Nitrogen 14 mg/dL (9-20); Calcium 8.8 mg/dL (8.4-10.2); Carbon Dioxide 25 mmol/L (22-32); Chloride 101 mmol/L (98-107); Estimated Glomerular Filt Rate > 60 mL/min (>60); Ethanol (ETOH) < 10 mg/dL; Globulin 4.3 g/dL (1.7-4.1); Glucose 114 mg/dL (70-100); HEMOLYSIS < 15 (0-50); Lipase 29 U/L (23-300); Potassium 4.2 mmol/L (3.4-5.1); Salicylate < 1.0 mg/dL (<20); Sodium 136 mmol/L (137-145); Total Protein 8.2 g/dL (6.3-8.2)
[2022-04-05 06:58] LABS: COVID19 -Nasal RAPID Negative (Negative)
[2022-04-05 07:21] LABS: Thyroid Stimulating Hormone 3.55 uIU/mL (0.47-4.68)
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
[2022-04-05] MEDS: diphenhydrAMINE 50 MG/ML VIAL IM (08:29)
[2022-04-05] MEDS: HALOPERIDOL 5 MG/ML VIAL 10 MG IM (08:30)
[2022-04-05] MEDS: NICOTINE 21 MG PATCH TOP (09:31)
[2022-04-05] MEDS: LORazepam 0.5 MG TABLET 2 MG PO (09:54)
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
[2022-04-05 11:08] VITALS: BP 127/76; PULSE 105; RESP 20; TEMP 36.9; O2SAT 97
[2022-04-05] MEDS: diazePAM 2 MG TABLET PO ×2 (12:15→17:50)
[2022-04-05] MEDS: NALOXONE SL (14:30)
[2022-04-05] MEDS: BUPRENORPHINE SL (14:30)
[2022-04-05 15:07] LABS: Ur Creatinine Normal (Normal); Ur Specific Gravity Normal (Normal); Urine pH Normal (Normal)
[2022-04-05 15:08] LABS: UR Morphine/Opiate cutoff 300 Negative (Negative); Urine Amphetamines Negative (Negative); Urine Barbiturates Negative (Negative); Urine Benzodiazepines Positive (Negative); Urine Cocaine Negative (Negative); Urine MDMA Negative (Negative); Urine Methadone Negative (Negative); Urine Methamphetamines Negative (Negative); Urine Oxycodone Negative (Negative); Urine Phencyclidine Negative (Negative); Urine Tetrahydrocannabinol Negative (Negative); Urine Tricyclic Antidepressant Negative (Negative)
[2022-04-05 15:30] LABS: Bacteria Urine Occasional (0-1); Culture Indicated Urine Cult Not Indicated; RBC Urine None Seen (0-5/HPF); Squamous Epithelial Cell Urine 0-1 /HPF (0-5/HPF); WBC Urine 0-1/HPF (0-5/HPF)
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
[2022-04-05 19:25] VITALS: BP 123/80; PULSE 105; RESP 17; TEMP 36.7; O2SAT 98
[2022-04-05 19:58] VITALS: BP 123/80; PULSE 105; RESP 17; TEMP 36.6; O2SAT 98
== END 2022-04-05 19:45 | disposition home or self-care (01) ==
PROVIDERS: Emergency Medicine; Emergency Provider Emergency Medicine; PCP Physician Assistant
DX: F29 Unspecified psychosis not due to a substance or known physiological condition (principal); F41.9 Anxiety disorder, unspecified; R07.9 Chest pain, unspecified; Z20.822 Contact with and (suspected) exposure to COVID-19
CPT/HCPCS: 80053; 80305; 80320; 80329; 81015; 83690; 84443; 85025; 87635; 93005; 96372; 99284; C9803; G0480; J1200; J1630

== ENCOUNTER 2022-07-09 12:07 | Emergency (ER) | payer OTHER, MEDICAID, SELFPAY ==
[2020-11-08 15:33] VITALS: BMI 35.9
[2022-07-09] VITALS (19 sets, daily range): BP systolic 94–151; BP diastolic 52–96; PULSE 51–74; RESP 10–20; TEMP 36.2; O2SAT 91–97; BMI 36.5
--- NOTE | 2022-07-09 12:31 | DI.CT.S_ITS ---
PROCEDURE: CT HEAD/BRAIN WO CON INDICATIONS: AMS TECHNIQUE: Noncontrast 4.5 mm thick angled axial sections acquired from the foramen magnum to the vertex, with coronal and sagittal reformats. For radiation dose reduction, the following was used: automated exposure control, adjustment of mA and/or kV according to patient size. COMPARISON: None. FINDINGS: Image quality: Good CSF spaces: Basal cisterns are patent. Lateral ventricles are symmetric. Volume: Mild volume loss. Brain: No intracranial hemorrhage. Sandoval-white differentiation is grossly maintained. Craniofacial structures: Mild paranasal sinus mucosal thickening. Mastoids are clear. IMPRESSION: No acute intracranial abnormality. If there is high concern for parenchymal pathology, consider further evaluation with MRI. Dictated by: Lawrence Ayala M.D. on 07/09/2022 at 12:52 Approved by: Lawrence Ayala M.D. on 07/09/2022 at 12:54
--- NOTE | 2022-07-09 12:48 | ED_ITS ---
HPI - General Adult General Chief complaint: Altered Mental Status Stated complaint: slept so hard couldn't be woken/catatonic stare Time Seen by Provider: 07/09/22 12:29 Source: patient and family Mode of arrival: Ambulatory History of Present Illness HPI narrative: Patient is a 38-year-old male. Does have a distant history of alcohol and drug abuse. He was also seen here in the emergency department earlier this year for a psychosis episode where he was transferred. His states that he is no recent change in any of his medications. She states last evening he was at his normal state of health. This morning she got up to use the restroom. She tried to wake the patient but he was not arousable. This initially did not cause her any suspicion but as he did not get up for some time afterwards she went back and found that he was not being responsive. Because the patient was not coming back to his normal state of health she brought him here in the emergency department. Here in the ER the patient was not in any respiratory distress. He would did appear to be in a catatonic state it seemed to be looking off into the distance however when you called his name and aroused him he did acknowledge the individual who did this. He would answer questions. He stated that he just generally did not feel very well but did not have any specific symptoms. He denied taking any drugs except for his medications although he did not have his medicines this morning. No reports of any trauma. Related Data Home Medications Medication Instructions Recorded Confirmed buprenorphine 12 mg-naloxone 3 mg 1 film sublingual BID 11/09/20 04/05/22 sublingual film (Suboxone) clonazepam 0.5 mg tablet 1 mg PO BID 11/09/20 04/05/22 hydroxyzine HCl 50 mg tablet 50 mg PO BID 11/09/20 04/05/22 aripiprazole 5 mg tablet 2.5 mg PO BEDTIME 04/05/22 04/05/22 bupropion HCl 100 mg tablet 100 mg PO BID 04/05/22 04/05/22 prazosin 2 mg capsule 2 mg PO BEDTIME 04/05/22 04/05/22 venlafaxine 75 mg capsule,extended 75 mg PO DAILY 04/05/22 04/05/22 release 24 hr Allergies Allergy/AdvReac Type Severity Reaction Status Date / Time No Known Drug Allergies Allergy Verified 05/10/21 11:29 Review of Systems Review of Systems Narrative: Somewhat limited given his presenting state however his responses are recorded below Constitutional Comments: Denies headache Eyes Comments: Denies vision changes Cardiovascular Comments: Denies chest pain Respiratory Comments: Denies shortness of breath Gastrointestinal Comments: Denies abdominal pain Psychiatric Comments: Patient denies visual/auditory hallucinations and also anxiety Patient History Medical History ADHD Depression Opioid use disorder Psychiatric disorder Social History household members: spouse Smoking Status: Never smoker Smoking Status: Never smoker tobacco type: smokeless tobacco alcohol intake frequency: holidays/special occasions only Substance Use Type: does not use Exam Initial Vital Signs Initial Vital Signs: Vital Signs Temperature 97.1 F L 07/09/22 12:12 Pulse Rate 74 07/09/22 12:12 Respiratory Rate 16 07/09/22 12:12 Blood Pressure 120/85 07/09/22 12:12 Pulse Oximetry 94 07/09/22 12:12 Oxygen Delivery Method Room Air 07/09/22 12:12 Const General: No ill appearing HENMT Head: normal to inspection and normocephalic Mouth: moist mucous membranes Eyes Pupils: PERRL Resp Effort & Inspection: normal respiratory effort Auscultation: clear to auscultation bilaterally Cardio Rate: regular rate Rhythm: regular rhythm GI Palpation: soft, No firm and No tender Skin General: no rashes or lesions noted Neuro Other: Patient did know his name and his date any new that he was in the hospital. He also know what year it was. When the patient spoke he was soft spoken but we had a clear speech. He did have some tremors in his upper and lower extremities. Patient did follow commands. Extrem Other: No gross deformities Psych Other: Patient denied auditory visual hallucinations. Was in a catatonic state but was responsive when directed. Course Orders Ordered: ED Orders 07/09/22 12:31 CT head/brain wo con Stat 07/09/22 12:50 Acetaminophen Stat Complete Blood Count AUTO DIFF Stat Comprehensive Metabolic Panel Stat Ethanol (ETOH) Stat Lipase Stat Salicylate Stat 07/09/22 13:00 COVID19 -Nasal RAPID Stat 07/09/22 13:07 EKG-12 Lead Stat 07/09/22 13:14 Urine Drug Screen, Rapid Stat 07/09/22 13:20 Ammonia (NH3) Stat 07/09/22 14:03 Urinalysis and Microscopic Stat Urine Culture Stat Discontinued Medications Ammonia (Aromatic Spirit) (Ammonia Inhalant 1 Each) 1 each INH NOW ONE Stop: 07/09/22 12:31 Last Admin: 07/09/22 13:33 Dose: Not Given Documented By: KB Sodium Chloride (Normal Saline 0.9%) 1,000 mls @ 125 mls/hr IV CONT YAMILKA Last Infusion: 07/09/22 17:03 Dose: 0 mls/hr Documented By: Admin: 07/09/22 14:44 Dose: 125 mls/hr Documented By: FLArlene Lorazepam (Lorazepam 2 Mg/Ml Inj) 2 mg IV NOW ONE Stop: 07/09/22 15:49 Last Admin: 07/09/22 16:04 Dose: 2 mg Documented By: Olanzapine (Olanzapine Odt 10 Mg Tab) 10 mg PO NOW ONE Stop: 07/09/22 14:52 Last Admin: 07/09/22 14:56 Dose: 10 mg Documented By: Vital Signs Vital signs: Vital Signs - 8 hr 07/09/22 12:12 07/09/22 12:25 07/09/22 12:26 Temperature 97.1 F L Pulse Rate 74 Respiratory Rate 16 Blood Pressure 120/85 Pulse Oximetry 94 97 97 Oxygen Delivery Method Room Air 07/09/22 12:26 07/09/22 12:30 07/09/22 12:51 Temperature Pulse Rate 63 Respiratory Rate 10 L Blood Pressure 133/77 124/89 Pulse Oximetry 94 Oxygen Delivery Method 07/09/22 12:51 07/09/22 13:00 07/09/22 13:00 Temperature Pulse Rate 62 63 Respiratory Rate 20 Blood Pressure 130/88 Pulse Oximetry 96 94 Oxygen Delivery Method 07/09/22 13:30 07/09/22 13:31 07/09/22 13:31 Temperature Pulse Rate 59 L 59 L Respiratory Rate 19 20 Blood Pressure 128/87 Pulse Oximetry Oxygen Delivery Method 07/09/22 14:00 07/09/22 14:01 07/09/22 14:01 Temperature Pulse Rate 61 61 Respiratory Rate Blood Pressure 151/96 H Pulse Oximetry 94 91 Oxygen Delivery Method 07/09/22 14:30 07/09/22 14:31 07/09/22 14:31 Temperature Pulse Rate 56 L 59 L Respiratory Rate Blood Pressure 147/81 H Pulse Oximetry 96 96 Oxygen Delivery Method 07/09/22 15:00 07/09/22 15:01 07/09/22 15:01 Temperature Pulse Rate 60 56 L Respiratory Rate 18 Blood Pressure 114/58 L Pulse Oximetry 96 93 Oxygen Delivery Method 07/09/22 15:30 07/09/22 15:31 07/09/22 15:31 Temperature Pulse Rate 53 L 54 L Respiratory Rate Blood Pressure 94/52 L Pulse Oximetry 95 95 Oxygen Delivery Method 07/09/22 16:00 07/09/22 16:01 07/09/22 16:03 Temperature Pulse Rate 51 L 51 L Respiratory Rate Blood Pressure Pulse Oximetry 95 94 95 Oxygen Delivery Method 07/09/22 16:03 07/09/22 17:13 Temperature Pulse Rate Respiratory Rate Blood Pressure 112/70 Pulse Oximetry Oxygen Delivery Method Room Air Medical Decision Making Medical Records Medical records reviewed: Yes I reviewed the patient's medical records. Lab Data Lab results reviewed: Yes I reviewed the patient's lab results. 07/09/22 12:50 07/09/22 12:50 Labs: Lab Results 07/09/22 07/09/22 07/09/22 Range/Units 12:50 12:50 13:00 WBC 10.5 (4.5-11.0) X10^3/uL RBC 5.14 (4.5-5.9) X10^6/uL Hgb 14.6 (13.5-17.5) g/dL Hct 43.4 (41-53) % MCV 84.5 (80-100) fL MCH 28.5 (26-34) PG MCHC 33.7 (30-36) % RDW 14.2 (11.6-14.8) % Plt Count 291 (150-400) X10^3/uL Neut % (Auto) 63.2 (50-75) % Lymph % (Auto) 24.1 L (25-40) % [place] % (Auto) 9.4 (3-14) % Eos % (Auto) 2.2 (2-4) % Baso % (Auto) 1.1 (0-2) % Neut # (Auto) 6700 (5952-1767) /uL Lymph # (Auto) 2500 (1493-4750) /uL [place] # (Auto) 1000 H (0-900) /uL Eos # (Auto) 200 (0-450) /uL Baso # (Auto) 100 (0-100) /uL Sodium 136 L (137-145) mmol/L Potassium 4.6 (3.4-5.1) mmol/L Chloride 102 (98-107) mmol/L Carbon Dioxide 27 (22-32) mmol/L BUN 14 (9-20) mg/dL Creatinine 1.59 H (0.66-1.25) mg/dL Estimated GFR 53 L (>60) mL/min BUN/Creatinine Ratio 8.8 (6-22) Glucose 97 (70-100) mg/dL Calcium 8.7 (8.4-10.2) mg/dL Total Bilirubin 1.9 H (0.2-1.3) mg/dL AST 34 (17-59) IU/L ALT 22 (<50) IU/L Alkaline Phosphatase 90 (38-126) U/L Ammonia (9-30) umol/L Total Protein 8.5 H (6.3-8.2) g/dL Albumin 4.0 (3.5-5.0) g/dL Globulin 4.5 H (1.7-4.1) g/dL Albumin/Globulin Ratio 0.9 L (1.0-2.8) Lipase 41 (23-300) U/L Urine Color Urine Appearance Urine pH (4.5-8.0) Ur Specific [place] (1.000-1.035) Urine Protein (Negative) Urine Glucose (UA) (Negative) g/dL Urine Ketones (NEGATIVE) Urine Occult Blood (Negative) Urine Nitrate (Negative) Urine Bilirubin (NEGATIVE) Urine Urobilinogen (0.2) E.U./dL Ur Leukocyte Esterase (NEGATIVE) Urine RBC (0-5/HPF) Urine WBC (0-5/HPF) Ur Squamous Epith Cells (0-5/HPF) Urine Bacteria (None) Ur Culture Indicated? Salicylates < 1.0 (<20) mg/dL U Opiates 300ng/mL cut (Negative) Ur Oxycodone Screen (Negative) Urine Methadone Screen (Negative) Acetaminophen < 10 (10-30) ug/mL Ur Barbiturates Screen (Negative) U Tricyclic Antidepress (Negative) Ur Phencyclidine Scrn (Negative) Ur Amphetamines Screen (Negative) U Methamphetamines Scrn (Negative) Ur MDMA Scrn (Ecstasy) (Negative) U Benzodiazepines Scrn (Negative) Urine Cocaine Screen (Negative) U Marijuana (THC) Screen (Negative) Ethyl Alcohol < 10 ( - 10) mg/dL SARS-CoV-2 (PCR) Negative (Negative) 07/09/22 07/09/22 07/09/22 Range/Units 13:14 13:20 14:03 WBC (4.5-11.0) X10^3/uL RBC (4.5-5.9) X10^6/uL Hgb (13.5-17.5) g/dL Hct (41-53) % MCV (80-100) fL MCH (26-34) PG MCHC (30-36) % RDW (11.6-14.8) % Plt Count (150-400) X10^3/uL Neut % (Auto) (50-75) % Lymph % (Auto) (25-40) % [place] % (Auto) (3-14) % Eos % (Auto) (2-4) % Baso % (Auto) (0-2) % Neut # (Auto) (6164-6243) /uL Lymph # (Auto) (0504-4045) /uL [place] # (Auto) (0-900) /uL Eos # (Auto) (0-450) /uL Baso # (Auto) (0-100) /uL Sodium (137-145) mmol/L Potassium (3.4-5.1) mmol/L Chloride (98-107) mmol/L Carbon Dioxide (22-32) mmol/L BUN (9-20) mg/dL Creatinine (0.66-1.25) mg/dL Estimated GFR (>60) mL/min BUN/Creatinine Ratio (6-22) Glucose (70-100) mg/dL Calcium (8.4-10.2) mg/dL Total Bilirubin (0.2-1.3) mg/dL AST (17-59) IU/L ALT (<50) IU/L Alkaline Phosphatase (38-126) U/L Ammonia 20 (9-30) umol/L Total Protein (6.3-8.2) g/dL Albumin (3.5-5.0) g/dL Globulin (1.7-4.1) g/dL Albumin/Globulin Ratio (1.0-2.8) Lipase (23-300) U/L Urine Color Yellow Urine Appearance Clear Urine pH 6.0 (4.5-8.0) Ur Specific [place] 1.015 (1.000-1.035) Urine Protein Negative (Negative) Urine Glucose (UA) Negative (Negative) g/dL Urine Ketones Negative (NEGATIVE) Urine Occult Blood Negative (Negative) Urine Nitrate Negative (Negative) Urine Bilirubin Negative (NEGATIVE) Urine Urobilinogen 2.0 H (0.2) E.U./dL Ur Leukocyte Esterase Negative (NEGATIVE) Urine RBC None seen (0-5/HPF) Urine WBC None seen (0-5/HPF) Ur Squamous Epith Cells None seen (0-5/HPF) Urine Bacteria None seen (None) Ur Culture Indicated? Cult not indicated Salicylates (<20) mg/dL U Opiates 300ng/mL cut Negative (Negative) Ur Oxycodone Screen Negative (Negative) Urine Methadone Screen Negative (Negative) Acetaminophen (10-30) ug/mL Ur Barbiturates Screen Negative (Negative) U Tricyclic Antidepress Negative (Negative) Ur Phencyclidine Scrn Negative (Negative) Ur Amphetamines Screen Negative (Negative) U Methamphetamines Scrn Negative (Negative) Ur MDMA Scrn (Ecstasy) Negative (Negative) U Benzodiazepines Scrn Negative (Negative) Urine Cocaine Screen Negative (Negative) U Marijuana (THC) Screen Negative (Negative) Ethyl Alcohol ( - 10) mg/dL SARS-CoV-2 (PCR) (Negative) Point of Care Testing Glucose POC 94 Point of care testing: Point of Care Testing Glucose POC [address] scan - head: Radiologist's Impression: PROCEDURE:? CT HEAD/BRAIN WO CON ? INDICATIONS:? AMS ? TECHNIQUE:? Noncontrast 4.5 mm thick angled axial sections acquired from the foramen magnum to the vertex, with coronal and sagittal reformats.? For radiation dose reduction, the following was used:? automated exposure control, adjustment of mA and/or kV according to patient size.? ? COMPARISON:? None. ? FINDINGS:? Image quality:? Good ? CSF spaces: Basal cisterns are patent. Lateral ventricles are symmetric. Volume:? Mild volume loss. ? Brain: No intracranial hemorrhage. Sandoval-white differentiation is grossly maintained. ? Craniofacial structures:? Mild paranasal sinus mucosal thickening.? Mastoids are clear. ? IMPRESSION:? No acute intracranial abnormality.? If there is high concern for parenchymal pathology, consider further evaluation with MRI. ECG Data Attestation: I personally reviewed and interpreted this ECG as follows: Interpretation: Sinus rhythm Ventricular rate is 64 Normal axis Normal QRS Normal QTC Nonspecific ST T wave changes MDM Narrative Medical decision making narrative: Patient's presenting symptoms were somewhat confusing. There did not appear to be any trauma. His alcohol and UDS was negative. He specifically denied taking any illicit drugs in his deny that he would taken any as well. His also states that he is not taking any extra of any of his medications. Patient denied visual and auditory hallucinations. There was no signs of any infection. His head CT was unremarkable. Patient also was not febrile. Not tachycardic. Low suspicion for NMS or other extrapyramidal effects from his medications. I did discuss the case with Dr. Ochoa with psychiatry who stated that this did sound like a catatonic state. He recommended given the patient Ativan. I had already given him Zyprexa without any changes to his presentation. After observation with the Ativan the patient did become more arousable. He was able to stand at bedside. His at bedside states that she thinks that he is getting very close to his baseline. His states that she was comfortable taking him home. The patient states he was comfortable going home. Will have him follow-up with his mental health provider. They were given return precautions. expressed understanding agreement with plan. Discharge Plan Departure Patient Disposition: Home Clinical Impression: Catatonia Activity Restrictions/Additional Instructions: I do recommend that you continue to take all of your medications as directed. It is important that you contact your mental health provider tomorrow for a foll ow-up. Return to the emergency department for new or worsening symptoms. Prescriptions: No Action venlafaxine 75 mg capsule,extended release 24hr 75 mg PO DAILY prazosin 2 mg capsule 2 mg PO BEDTIME aripiprazole 5 mg tablet 2.5 mg PO BEDTIME bupropion HCl 100 mg tablet 100 mg PO BID buprenorphine-naloxone [Suboxone] 12-3 mg film 1 film sublingual BID clonazepam 0.5 mg Tablet 1 mg PO BID hydroxyzine HCl 50 mg Tablet 50 mg PO BID Referrals: Cathryn Flores PA-C [Primary Care Provider] - Stand Alone Forms: Patient Portal/API
[2022-07-09 13:06] LABS: Add Manual Diff / Slide Review NO; Basophils Absolute Auto 100 /uL (0-100); Basophils Percent Auto 1.1 % (0-2); Eosinophils Absolute Auto 200 /uL (0-450); Eosinophils Percent Auto 2.2 % (2-4); Hematocrit 43.4 % (41-53); Hemoglobin 14.6 g/dL (13.5-17.5); Lymphocytes Absolute Auto 2500 /uL (1100-4500); Lymphocytes Percent Auto 24.1 % (25-40); Mean Corpuscular HGB Conc 33.7 % (30-36); Mean Corpuscular Hemoglobin 28.5 PG (26-34); Mean Corpuscular Volume 84.5 fL (80-100); Monocytes Absolute Auto 1000 /uL (0-900); Monocytes Percent Auto 9.4 % (3-14); Neutrophils Absolute Auto 6700 /uL (1500-7000); Neutrophils Percent Auto 63.2 % (50-75); Platelet Count 291 X10^3/uL (150-400); Red Blood Cell Count 5.14 X10^6/uL (4.5-5.9); Red Cell Distribution Width 14.2 % (11.6-14.8); White Blood Cell Count 10.5 X10^3/uL (4.5-11.0)
--- NOTE | 2022-07-09 13:13 | PC.NURSE ---
Pt LKW 07/08/22 at 2300,prior to going to sleep per pts . Pt was difficult to wake up this morning per his and is very lethargic. Pt closing eyes frequently,pt answering some questions. Pt answered his name and correctly but was unable to tell me his age. Pt having difficulty following commands. pt appears pale and diaphoretic. Pt had an unsteady gait when arriving to the ED.
[2022-07-09 13:19] LABS: Acetaminophen < 10 ug/mL (10-30); Alanine Aminotransferase 22 IU/L (<50); Albumin Globulin Ratio 0.9 (1.0-2.8); Alkaline Phosphatase 90 U/L (38-126); Aspartate Aminotransferase 34 IU/L (17-59); BUN Creatinine Ratio 8.8 (6-22); Bilirubin Total 1.9 mg/dL (0.2-1.3); Blood Urea Nitrogen 14 mg/dL (9-20); Calcium 8.7 mg/dL (8.4-10.2); Carbon Dioxide 27 mmol/L (22-32); Chloride 102 mmol/L (98-107); Estimated Glomerular Filt Rate 53 mL/min (>60); Ethanol (ETOH) < 10 mg/dL; Globulin 4.5 g/dL (1.7-4.1); Glucose 97 mg/dL (70-100); HEMOLYSIS 41 (0-50); Lipase 41 U/L (23-300); Potassium 4.6 mmol/L (3.4-5.1); Salicylate < 1.0 mg/dL (<20); Sodium 136 mmol/L (137-145); Total Protein 8.5 g/dL (6.3-8.2)
[2022-07-09 13:27] LABS: COVID19 -Nasal RAPID Negative (Negative)
[2022-07-09 13:41] LABS: Ammonia (NH3) 20 umol/L (9-30)
[2022-07-09 14:09] LABS: Appearance Urine UA CLEAR; Bilirubin Urine UA NEGATIVE (NEGATIVE); Color Urine UA YELLOW; Glucose Urine UA NEGATIVE (Negative); Ketones Urine UA NEGATIVE (NEGATIVE); Leukocyte Esterase Urine UA NEGATIVE (NEGATIVE); Nitrite Urine UA NEGATIVE (Negative); Occult Blood Urine UA NEGATIVE (Negative); Protein Urine UA NEGATIVE (Negative); Specific Gravity Urine UA 1.015 (1.000-1.035)
[2022-07-09 14:26] LABS: Bacteria Urine None Seen; Culture Indicated Urine Cult Not Indicated; RBC Urine None Seen (0-5/HPF); Squamous Epithelial Cell Urine None Seen (0-5/HPF); WBC Urine None Seen (0-5/HPF)
[2022-07-09 14:34] LABS: UR Morphine/Opiate cutoff 300 Negative (Negative); Ur Creatinine Normal (Normal); Ur Specific Gravity Normal (Normal); Urine Amphetamines Negative (Negative); Urine Barbiturates Negative (Negative); Urine Benzodiazepines Negative (Negative); Urine Cocaine Negative (Negative); Urine MDMA Negative (Negative); Urine Methadone Negative (Negative); Urine Methamphetamines Negative (Negative); Urine Oxycodone Negative (Negative); Urine Phencyclidine Negative (Negative); Urine Tetrahydrocannabinol Negative (Negative); Urine Tricyclic Antidepressant Negative (Negative); Urine pH Normal (Normal)
[2022-07-09] MEDS: SODIUM CHLORIDE 0.9% 1,000 ML 125 ML IV (14:44)
[2022-07-09] MEDS: OLANZapine ODT 10 MG TAB PO (14:56)
[2022-07-09] MEDS: LORazepam 2 MG/ML INJ IV (16:04)
== END 2022-07-09 17:15 | disposition home or self-care (01) ==
PROVIDERS: Emergency Provider Emergency Medicine; PCP Physician Assistant
DX: R07.9 Chest pain, unspecified (principal); F06.1 Catatonic disorder due to known physiological condition; Z20.822 Contact with and (suspected) exposure to COVID-19
CPT/HCPCS: 36415; 51701; 70450; 80053; 80305; 80320; 80329; 81001; 82140; 82962; 83690; 85025; 87086; 87635; 93005; 96361; 96374; 99285; C9803; G0480; J2060

== ENCOUNTER 2023-02-06 02:10 | Emergency (ER) | payer OTHER, MEDICAID, SELFPAY ==
[2020-11-08 15:33] VITALS: BMI 35.9
[2023-02-06 02:15] VITALS: BP 126/71; PULSE 62; RESP 16; TEMP 36.8; O2SAT 98; BMI 27.3
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
--- NOTE | 2023-02-06 02:36 | ED.UPPEXIN ---
HPI - Extremity Injury (Upper) General Chief Complaint: Extremity Injury, Upper Stated Complaint: rt hand pain did marijuana and meth Time Seen by Provider: 02/06/23 02:27 History of Present Illness HPI narrative: Patient arrives with right hand pain. He says that he punched a wall 4 days ago and has had exquisite right hand pain ever since. He says that the pain all throughout the hand and wrist and forearm and elbow and upper arm and shoulder. He denies any other injury. He endorses drug addiction and tells me, many, many times, that he is not drug-seeking Related Data Home Medications Medication Instructions Recorded Confirmed buprenorphine 12 mg-naloxone 3 mg 1 film sublingual BID 11/09/20 04/05/22 sublingual film (Suboxone) clonazepam 0.5 mg tablet 1 mg PO BID 11/09/20 04/05/22 hydroxyzine HCl 50 mg tablet 50 mg PO BID 11/09/20 04/05/22 aripiprazole 5 mg tablet 2.5 mg PO BEDTIME 04/05/22 04/05/22 bupropion HCl 100 mg tablet 100 mg PO BID 04/05/22 04/05/22 prazosin 2 mg capsule 2 mg PO BEDTIME 04/05/22 04/05/22 venlafaxine 75 mg capsule,extended 75 mg PO DAILY 04/05/22 04/05/22 release 24 hr Allergies Allergy/AdvReac Type Severity Reaction Status Date / Time No Known Drug Allergies Allergy Verified 05/10/21 11:29 Patient History Medical History ADHD Depression Opioid use disorder Psychiatric disorder Social History household members: spouse Smoking Status: Never smoker Smoking Status: Never smoker tobacco type: smokeless tobacco alcohol intake frequency: holidays/special occasions only Substance Use Type: does not use Exam Narrative Exam Narrative: GENERAL: Alert, cooperative and in no distress. HEAD: Atraumatic. Normocephalic. EYES: Sclera are clear without icterus. Extraocular movements are full. ENT: No rhinorrhea NECK: No visible abnormality RESPIRATORY: No respiratory distress GASTROINTESTINAL: Nondistended EXTREMITIES: swelling of the dorsum of the right hand over the MCP joint of the long finger and ring finger. The rest of the upper extremities unremarkable. NEURO: Nonfocal, normal speech SKIN: No rash or erythema of visible areas PSYCH: Normally oriented. Normal range of affect. Appropriate behavior Initial Vital Signs Initial Vital Signs: Vital Signs Temperature 98.2 F 02/06/23 02:15 Pulse Rate 62 02/06/23 02:15 Respiratory Rate 16 02/06/23 02:15 Blood Pressure 126/71 02/06/23 02:15 Pulse Oximetry 98 02/06/23 02:15 Oxygen Delivery Method Room Air 02/06/23 02:15 Course Orders Ordered: ED Orders 02/06/23 02:27 XR hand RT min 3V Stat Vital Signs Vital signs: Vital Signs - 8 hr 02/06/23 02:15 Temperature 98.2 F Pulse Rate 62 Respiratory Rate 16 Blood Pressure 126/71 Pulse Oximetry 98 Oxygen Delivery Method Room Air MDM - Extremity Injury (Upper) Imaging Data Extremity x-ray #1: My Impression: X-rays negative for fracture Discharge Plan Departure Patient Disposition: Home Clinical Impression: Contusion of hand, right Activity Restrictions/Additional Instructions: x-ray is normal. No evidence of fracture. You must have a deep bruise of the bone. I recommend Tylenol 1000 mg taken together with ibuprofen 600 mg every 6 hours. Ice packs may provide some relief but do not use them for more than 30 minutes at a time. Follow-up with your doctor in a week if the symptoms persist. Prescriptions: No Action venlafaxine 75 mg capsule,extended release 24hr 75 mg PO DAILY prazosin 2 mg capsule 2 mg PO BEDTIME aripiprazole 5 mg tablet 2.5 mg PO BEDTIME bupropion HCl 100 mg tablet 100 mg PO BID buprenorphine-naloxone [Suboxone] 12-3 mg film 1 film sublingual BID clonazepam 0.5 mg Tablet 1 mg PO BID hydroxyzine HCl 50 mg Tablet 50 mg PO BID Referrals: Cathryn Flores PA-C [Primary Care Provider] - Stand Alone Forms: Patient Portal/API
--- NOTE | 2023-02-13 08:29 | ED_ITS ---
HPI - Psych General Chief Complaint: Extremity Injury, Upper Stated Complaint: rt hand pain did marijuana and meth Time Seen by Provider: 02/06/23 02:27 Source: patient Mode of arrival: Ambulatory Limitations: no limitations History of Present Illness HPI Narrative: This is a 47-year-old male history of alcohol and drug abuse and psychiatric issues. Patient presents with EMS after being found on the local bus unable or unwilling to get off of the bus. He states he was at [facility] yesterday for mental health issues. EMS states yesterday he had a stand off in his care home with PD threatening to kill his roommates he did not have any firearms but did have knives. They ultimately were able to get him to leave after allowing him to smoke methamphetamines and patient was then transported to [facility]. Attempting to obtain records. There was also report patient may have tried to check in twice last night here at our facility. Patient does answer questions but sort of mumbles. 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 Patient denies pain. He does state he had methamphetamines yesterday. He states he is supposed to take psychiatric medications every day. He denies any hallucinations currently. He denies any intent to harm himself or others. Medics state that he did stand and jump from the bus onto the EMS gurney without issue. But has been moving otherwise they state he has been interactive and cooperative thus far but was not yesterday. Patient does not report any injuries or trauma. Denies other symptoms currently. He seems ambivalent about if he would be assisted by mental health placement. He indicates he uses tobacco, he denies alcohol, he denies any recreational drugs today does endorse methamphetamines yesterday. Related Data Home Medications Medication Instructions Recorded Confirmed buprenorphine 12 mg-naloxone 3 mg 1 film sublingual BID 11/09/20 04/05/22 sublingual film (Suboxone) clonazepam 0.5 mg tablet 1 mg PO BID 11/09/20 04/05/22 hydroxyzine HCl 50 mg tablet 50 mg PO BID 11/09/20 04/05/22 aripiprazole 5 mg tablet 2.5 mg PO BEDTIME 04/05/22 04/05/22 bupropion HCl 100 mg tablet 100 mg PO BID 04/05/22 04/05/22 prazosin 2 mg capsule 2 mg PO BEDTIME 04/05/22 04/05/22 venlafaxine 75 mg capsule,extended 75 mg PO DAILY 04/05/22 04/05/22 release 24 hr Allergies Allergy/AdvReac Type Severity Reaction Status Date / Time No Known Drug Allergies Allergy Verified 05/10/21 11:29 Review of Systems Review of Systems ROS Unobtainable: All systems reviewed & are unremarkable except as noted in HPI and below Patient History Medical History Psychiatric disorder Depression Opioid use disorder ADHD Social History household members: spouse Smoking Status: Never smoker Smoking Status: Never smoker tobacco type: smokeless tobacco alcohol intake frequency: holidays/special occasions only Substance Use Type: does not use Exam Narrative Exam Narrative: GEN: well nourished, well appearing male, alert and oriented x 3, patient appears to be in mild distress. Patient's answers questions but he mumbles. HEENT: Atraumatic, patient does not open his eyes for examination, nares are clear, TMs are clear with no fluid, there is no conjunctival pallor. Throat is clear without any exudates, erythema, tonsillar enlargement or uvular deviation, no facial droop. HEART: Regular rate and rhythm without murmur, clicks, rubs. Pulses are equal in upper and lower extremities LUNGS:Lungs clear to auscultation, no wheezes, rales, crackles, chest moves symmetrically ABD:bowel sounds normal, soft, non-tender, no guarding, rebound, rigidity, no masses noted, no hepatosplenomegaly :No CVA tenderness MSCL: Non-tender, full range of motion NEURO:CN 2-12 intact, sensation normal SKIN: No rash, erythema or other skin changes. PSYCH: Patient indicates he is having mental health issues, denies hallucinations. Denies suicidal ideation or intent and denies any homicidal ideation or intent at this time. Initial Vital Signs Initial Vital Signs: Vital Signs Temperature 98.2 F 02/06/23 02:15 Pulse Rate 62 02/06/23 02:15 Respiratory Rate 16 02/06/23 02:15 Blood Pressure 126/71 02/06/23 02:15 Pulse Oximetry 98 02/06/23 02:15 Oxygen Delivery Method Room Air 02/06/23 02:15 Course Orders Ordered: ED Orders 02/13/23 08:30 Consult to [employer] - Accounting Advisory Services Manager Urgent Acetaminophen Stat Complete Blood Count AUTO DIFF Stat Comprehensive Metabolic Panel Stat Ethanol (ETOH) Stat Salicylate Stat TSH w/ Reflex to FT4 Stat Urine Drug Screen, Rapid Stat 02/13/23 08:31 COVID19 -Nasal RAPID Stat Discontinued Medications Aripiprazole (Aripiprazole 10 Mg Tablet) 10 mg PO NOW ONE Stop: 02/13/23 08:31 Discharge Plan Departure Patient Disposition: Home Clinical Impression: Contusion of hand, right Activity Restrictions/Additional Instructions: x-ray is normal. No evidence of fracture. You must have a deep bruise of the bone. I recommend Tylenol 1000 mg taken together with ibuprofen 600 mg every 6 hours. Ice packs may provide some relief but do not use them for more than 30 minutes at a time. Follow-up with your doctor in a week if the symptoms persist. Prescriptions: No Action venlafaxine 75 mg capsule,extended release 24hr 75 mg PO DAILY prazosin 2 mg capsule 2 mg PO BEDTIME aripiprazole 5 mg tablet 2.5 mg PO BEDTIME bupropion HCl 100 mg tablet 100 mg PO BID buprenorphine-naloxone [Suboxone] 12-3 mg film 1 film sublingual BID clonazepam 0.5 mg Tablet 1 mg PO BID hydroxyzine HCl 50 mg Tablet 50 mg PO BID Referrals: Cathryn Flores PA-C [Primary Care Provider] - Stand Alone Forms: Patient Portal/API
== END 2023-02-06 03:17 | disposition home or self-care (01) ==
PROVIDERS: Emergency Provider Family Medicine Addiction Medicine; PCP Physician Assistant
DX: S60.221A Contusion of right hand, initial encounter (principal); W22.8XXA Striking against or struck by other objects, initial encounter; Y93.89 Activity, other specified
CPT/HCPCS: 73130; 99283

== ENCOUNTER 2023-02-13 08:17 | Emergency (ER) | payer OTHER, MEDICAID, SELFPAY ==
[2020-11-08 15:33] VITALS: BMI 35.9
[2023-02-13 08:28] VITALS: BP 142/80; PULSE 72; RESP 16; TEMP 36.6; O2SAT 98; BMI 32.1
--- NOTE | 2023-02-13 08:41 | ED.PSYCH ---
HPI - Psych General Chief Complaint: Psychiatric Symptoms Stated Complaint: Psych Time Seen by Provider: 02/13/23 08:18 Source: patient, EMS, RN notes reviewed and old records reviewed Mode of arrival: EMS Limitations: no limitations History of Present Illness HPI Narrative: This is a 47-year-old male history of alcohol and drug abuse and psychiatric issues. Patient presents with EMS after being found on the local bus unable or unwilling to get off of the bus. He states he was at [facility] yesterday for mental health issues. EMS states yesterday he had a stand off in his alf with PD threatening to kill his roommates he did not have any firearms but did have knives. They ultimately were able to get him to leave after allowing him to smoke methamphetamines and patient was then transported to [facility]. Attempting to obtain records. There was also report patient may have tried to check in twice last night here at our facility. Patient does answer questions but sort of mumbles. 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 Patient denies pain. He does state he had methamphetamines yesterday. He states he is supposed to take psychiatric medications every day. He denies any hallucinations currently. He denies any intent to harm himself or others. Medics state that he did stand and jump from the bus onto the EMS gurney without issue. But has been moving otherwise they state he has been interactive and cooperative thus far but was not yesterday. Patient does not report any injuries or trauma. Denies other symptoms currently. He seems ambivalent about if he would be assisted by mental health placement. He indicates he uses tobacco, he denies alcohol, he denies any recreational drugs today does endorse methamphetamines yesterday. Related Data Home Medications Medication Instructions Recorded Confirmed buprenorphine 12 mg-naloxone 3 mg 1 film sublingual BID 11/09/20 04/05/22 sublingual film (Suboxone) clonazepam 0.5 mg tablet 1 mg PO BID 11/09/20 04/05/22 hydroxyzine HCl 50 mg tablet 50 mg PO BID 11/09/20 04/05/22 aripiprazole 5 mg tablet 2.5 mg PO BEDTIME 04/05/22 04/05/22 bupropion HCl 100 mg tablet 100 mg PO BID 04/05/22 04/05/22 prazosin 2 mg capsule 2 mg PO BEDTIME 04/05/22 04/05/22 venlafaxine 75 mg capsule,extended 75 mg PO DAILY 04/05/22 04/05/22 release 24 hr Allergies Allergy/AdvReac Type Severity Reaction Status Date / Time No Known Drug Allergies Allergy Verified 05/10/21 11:29 Review of Systems Review of Systems ROS Unobtainable: All systems reviewed & are unremarkable except as noted in HPI and below Patient History Medical History Psychiatric disorder Depression Opioid use disorder ADHD Social History household members: spouse Smoking Status: Never smoker Smoking Status: Never smoker tobacco type: smokeless tobacco alcohol intake frequency: holidays/special occasions only Substance Use Type: does not use Exam Narrative Exam Narrative: GEN: well nourished, well appearing male, alert and oriented x 3, patient appears to be in mild distress. Patient's answers questions but he mumbles. HEENT: Atraumatic, patient does not open his eyes for examination, nares are clear, TMs are clear with no fluid, there is no conjunctival pallor. Throat is clear without any exudates, erythema, tonsillar enlargement or uvular deviation, no facial droop. HEART: Regular rate and rhythm without murmur, clicks, rubs. Pulses are equal in upper and lower extremities LUNGS:Lungs clear to auscultation, no wheezes, rales, crackles, chest moves symmetrically ABD:bowel sounds normal, soft, non-tender, no guarding, rebound, rigidity, no masses noted, no hepatosplenomegaly :No CVA tenderness MSCL: Non-tender, full range of motion NEURO:CN 2-12 intact, sensation normal SKIN: No rash, erythema or other skin changes. PSYCH: Patient indicates he is having mental health issues, denies hallucinations. Denies suicidal ideation or intent and denies any homicidal ideation or intent at this time. Initial Vital Signs Initial Vital Signs: Vital Signs Temperature 97.9 F 02/13/23 08:28 Pulse Rate 72 02/13/23 08:28 Respiratory Rate 16 02/13/23 08:28 Blood Pressure 142/80 H 02/13/23 08:28 Pulse Oximetry 98 02/13/23 08:28 Oxygen Delivery Method Room Air 02/13/23 08:28 Course Orders Ordered: ED Orders 02/13/23 09:27 Acetaminophen Stat Complete Blood Count AUTO DIFF Stat Comprehensive Metabolic Panel Stat Ethanol (ETOH) Stat Salicylate Stat TSH w/ Reflex to FT4 Stat 02/13/23 10:13 XR hand RT min 3V Stat XR shoulder RT min 2V Stat Discontinued Medications Aripiprazole (Aripiprazole 10 Mg Tablet) 10 mg PO NOW ONE Stop: 02/13/23 08:45 Last Admin: 02/13/23 09:38 Dose: 10 mg Documented By: SPF Diazepam (Diazepam 10 Mg/2 Ml Syringe) 2 mg IV NOW ONE Stop: 02/13/23 09:44 Last Admin: 02/13/23 09:59 Dose: Not Given Documented By: ERNA Diazepam (Diazepam 10 Mg/2 Ml Syringe) 5 mg IV NOW ONE Stop: 02/13/23 09:46 Last Admin: 02/13/23 09:47 Dose: 5 mg Documented By: ERNA Ketorolac Tromethamine (Ketorolac 30 Mg/Ml Vial) 15 mg IV NOW ONE Stop: 02/13/23 10:14 Last Admin: 02/13/23 10:21 Dose: 15 mg Documented By: ERNA Lorazepam (Lorazepam 2 Mg/Ml Inj) 1 mg IV NOW ONE Stop: 02/13/23 09:41 Last Admin: 02/13/23 09:59 Dose: Not Given Documented By: ERNA Vital Signs Vital signs: Vital Signs - 8 hr 02/13/23 08:28 Temperature 97.9 F Pulse Rate 72 Respiratory Rate 16 Blood Pressure 142/80 H Pulse Oximetry 98 Oxygen Delivery Method Room Air MDM - Psych Lab Data 02/13/23 09:27 02/13/23 09:27 Labs: Lab Results 02/13/23 Range/Units 09:27 WBC 9.0 (4.5-11.0) X10^3/uL RBC 4.11 L (4.5-5.9) X10^6/uL Hgb 12.7 L (13.5-17.5) g/dL Hct 37.1 L (41-53) % MCV 90.4 (80-100) fL MCH 31.0 (26-34) PG MCHC 34.2 (30-36) % RDW 14.4 (11.6-14.8) % Plt Count 229 (150-400) X10^3/uL Neut % (Auto) 68.1 (50-75) % Lymph % (Auto) 21.6 L (25-40) % Oxford % (Auto) 9.1 (3-14) % Eos % (Auto) 0.9 L (2-4) % Baso % (Auto) 0.3 (0-2) % Neut # (Auto) 6100 (7780-9226) /uL Lymph # (Auto) 1900 (5562-1647) /uL Oxford # (Auto) 800 (0-900) /uL Eos # (Auto) 100 (0-450) /uL Baso # (Auto) 0 (0-100) /uL Sodium 142 (137-145) mmol/L Potassium 3.2 L (3.4-5.1) mmol/L Chloride 108 H (98-107) mmol/L Carbon Dioxide 25 (22-32) mmol/L BUN 23 H (9-20) mg/dL Creatinine 1.39 H (0.66-1.25) mg/dL Estimated GFR > 60 (>60) mL/min BUN/Creatinine Ratio 16.5 (6-22) Glucose 80 (70-100) mg/dL Calcium 9.3 (8.4-10.2) mg/dL Total Bilirubin 1.2 (0.2-1.3) mg/dL AST 25 (17-59) IU/L ALT 15 (<50) IU/L Alkaline Phosphatase 105 (38-126) U/L Total Protein 7.7 (6.3-8.2) g/dL Albumin 3.9 (3.5-5.0) g/dL Globulin 3.8 (1.7-4.1) g/dL Albumin/Globulin Ratio 1.0 (1.0-2.8) TSH 1.16 (0.47-4.68) uIU/mL Salicylates < 1.0 (<20) mg/dL Acetaminophen < 10 (10-30) ug/mL Ethyl Alcohol < 10 ( - 10) mg/dL Imaging Data Extremity x-ray #1: Radiologist's Impression: Close Shoulder X-Ray (Signed) Elysia Santana - 02/13/23 Hand X-Ray (Signed) Ra Brand - 02/13/23 Hand X-Ray (Signed) Anthony Ordoñez - 02/06/[address] (Signed) Lawrence Ayala - 07/09/22 Abdomen/Pelvis CT (Signed) Casey Carter - 05/10/21 Telemetry Strips 11/08/20 Chest X-Ray (Signed) NathalieNeelchip - 11/08/20 Launch?[address] [address] XRay Report Signed Patient: Rusty Noel MR#: [id number] : 1975 Acct:[id number] Age/Sex: 47 / M Date of Service: 02/13/23 Loc: ED Accession Number: [id number] Procedure: XR shoulder RT min 2V Ordering Provider: Darleen Davalos D.O. PROCEDURE: XR SHOULDER RT MIN 2V INDICATIONS: right hand/arm pain, was seen similar 02/06. TECHNIQUE: 3 views of the shoulder were acquired. COMPARISON: None. FINDINGS: Bones: No fractures or dislocations. No suspicious bony lesions. Visualized ribs appear intact. Soft tissues: No suspicious soft tissue calcifications. IMPRESSION: No acute bony abnormality. Dictated by: Elysia Santana M.D. on 02/13/2023 at 10:42 Approved by: Elysia Santana M.D. on 02/13/2023 at 10:42 Extremity x-ray #2: Radiologist's Impression: Close Shoulder X-Ray (Signed) Elysia Santana - 02/13/23 Hand X-Ray (Signed) Ra Brand - 02/13/23 Hand X-Ray (Signed) Anthony Ordoñez - 02/06/[address] (Signed) Lawrence Ayala - 07/09/22 Abdomen/Pelvis CT (Signed) Casey Carter - 05/10/21 Telemetry Strips 11/08/20 Chest X-Ray (Signed) Felicia Zelaya - 11/08/20 Launch?[address] [address] XRay Report Signed Patient: Rusty Noel MR#: [id number] : 1975 Acct:[id number] Age/Sex: 47 / M Date of Service: 02/13/23 Loc: ED Accession Number: [id number] Procedure: XR hand RT min 3V Ordering Provider: Darleen Davalos D.O. PROCEDURE: XR HAND RT MIN 3V INDICATIONS: right hand/arm pain, was seen similar 02/06. TECHNIQUE: 3 views of the hand(s) acquired. COMPARISON: [facility], CR, XR HAND RT MIN 3V, 02/06/2023, 2:34. FINDINGS: Bones: No fractures or dislocations. Carpal bones are normally aligned. No suspicious bony lesions. Soft tissues: No suspicious soft tissue calcifications. Redemonstration of soft tissue swelling along the dorsal aspect of the hand. IMPRESSION: No acute osseous abnormality. If pain persists with conservative management, consider repeat x-ray in 10-14 days or cross-sectional imaging. Dictated by: Ra Brand M.D. on 02/13/2023 at 11:15 Approved by: Ra Brand M.D. on 02/13/2023 at 11:16 MDM Narrative Medical decision making narrative: 47-year-old male with history of mental health disorder and drug abuse and reported alcohol use although denies today. Patient did use methamphetamines yesterday had homicidal ideation/intent yesterday was reportedly transferred to [facility] by EMS and appears to have been released since then. Patient denies any thoughts of harming himself or others. He is alert, may have some component of intoxication on board. Denies any intent to harm others himself today denies any hallucinations. Plan for labs, urine, COVID swab for medical clearance. Patient is medically cleared. Creatinine appears stable. Hemoglobin 12.7 was 14 on 07/09/2022 otherwise normal CBC except for low lymphocytes. Potassium slightly low at 3.2, creatinine 1.39 consistent with patient's prior baseline. No other LFT changes TSH is negative. Urine sample has not been obtained. Patient was open taking a dose of his home medication so this was ordered. He can not tell me what he is taking exactly today so we gave aripiprazole on his which is on his medication list. Plan at this to meet with [employer]. Patient has not been physically aggressive but is loud occasionally yells or moves suddenly. His mentation has improved after benzodiazepines. Patient is sitting up on the edge of the bed, he is complaining of pain in his shoulder and hand he states he was seen here before they did not do anything. Shoulder and had imaging were obtained. Patient had imaging on 02/06 which showed no acute change and no acute changes today. Patient has full range of motion, neurovascularly intact on examination. He was given a dose of Toradol. This was before his labs had resulted. Still awaiting records from [facility]. Patient this point is voluntary, he does not wish for placement he does not really wish to be here he has not expressed anything that would cause me to detain him. Patient does not have any acute medical changes that warrant hospitalization. [employer] attempted to meet with patient. Patient wishes to. Patient may leave at this time. Discharge Plan Departure Patient Disposition: Home Clinical Impression: Left against medical advice, CKD (chronic kidney disease) Prescriptions: No Action venlafaxine 75 mg capsule,extended release 24hr 75 mg PO DAILY prazosin 2 mg capsule 2 mg PO BEDTIME aripiprazole 5 mg tablet 2.5 mg PO BEDTIME bupropion HCl 100 mg tablet 100 mg PO BID buprenorphine-naloxone [Suboxone] 12-3 mg film 1 film sublingual BID clonazepam 0.5 mg Tablet 1 mg PO BID hydroxyzine HCl 50 mg Tablet 50 mg PO BID Referrals: Cathryn Flores PA-C [Primary Care Provider] - Stand Alone Forms: Patient Portal/API, Against Medical Advice
[2023-02-13] MEDS: ARIPiprazole 10 MG TABLET PO (09:38)
[2023-02-13] MEDS: diazePAM 10 MG/2 ML SYRINGE 5 MG IV (09:47)
[2023-02-13 10:09] LABS: Add Manual Diff / Slide Review NO; Basophils Absolute Auto 0 /uL (0-100); Basophils Percent Auto 0.3 % (0-2); Eosinophils Absolute Auto 100 /uL (0-450); Eosinophils Percent Auto 0.9 % (2-4); Hematocrit 37.1 % (41-53); Hemoglobin 12.7 g/dL (13.5-17.5); Lymphocytes Absolute Auto 1900 /uL (1100-4500); Lymphocytes Percent Auto 21.6 % (25-40); Mean Corpuscular HGB Conc 34.2 % (30-36); Mean Corpuscular Volume 90.4 fL (80-100); Monocytes Absolute Auto 800 /uL (0-900); Monocytes Percent Auto 9.1 % (3-14); Neutrophils Absolute Auto 6100 /uL (1500-7000); Neutrophils Percent Auto 68.1 % (50-75); Platelet Count 229 X10^3/uL (150-400); Red Blood Cell Count 4.11 X10^6/uL (4.5-5.9); Red Cell Distribution Width 14.4 % (11.6-14.8)
--- NOTE | 2023-02-13 10:09 | PC.NURSE ---
[employer]PER [employer] MANAGER Note - Patient aggressively stating things such as Get me a fing drink and my fing right now or I'm gonna fing lose it. Or I'm so fing strong. I dare you. Patient saying these statements to no one in particular. Patient also flexing and pulling at the railings on the stretcher.
--- NOTE | 2023-02-13 10:10 | PC.NURSE ---
I tried calling pt's , number in chart has been changed or disconnected. Pt gave me another phone number to call her at, however the call went to a blank voicemail. I left a message to give the ER a call @[phone]. Pt continues to curse about getting his here. Pt cannot provide me with any other phone numbers for his friends he wants present. Pt states he lives at [address] [place] [address] in [place] with his friends.
--- NOTE | 2023-02-13 10:13 | DI.RAD.S_ITS ---
PROCEDURE: XR SHOULDER RT MIN 2V INDICATIONS: right hand/arm pain, was seen similar 02/06. TECHNIQUE: 3 views of the shoulder were acquired. COMPARISON: None. FINDINGS: Bones: No fractures or dislocations. No suspicious bony lesions. Visualized ribs appear intact. Soft tissues: No suspicious soft tissue calcifications. IMPRESSION: No acute bony abnormality. Dictated by: Elysia Santana M.D. on 02/13/2023 at 10:42 Approved by: Elysia Santana M.D. on 02/13/2023 at 10:42
--- NOTE | 2023-02-13 10:13 | DI.RAD.S_ITS ---
PROCEDURE: XR HAND RT MIN 3V INDICATIONS: right hand/arm pain, was seen similar 02/06. TECHNIQUE: 3 views of the hand(s) acquired. COMPARISON: [facility], [place], XR HAND RT MIN 3V, 02/06/2023, 2:34. FINDINGS: Bones: No fractures or dislocations. Carpal bones are normally aligned. No suspicious bony lesions. Soft tissues: No suspicious soft tissue calcifications. Redemonstration of soft tissue swelling along the dorsal aspect of the hand. IMPRESSION: No acute osseous abnormality. If pain persists with conservative management, consider repeat x-ray in 10-14 days or cross-sectional imaging. Dictated by: Ra Brand M.D. on 02/13/2023 at 11:15 Approved by: Ra Brand M.D. on 02/13/2023 at 11:16
[2023-02-13] MEDS: KETOROLAC 30 MG/ML VIAL 15 MG IV (10:21)
[2023-02-13 10:23] LABS: Acetaminophen < 10 ug/mL (10-30); Alanine Aminotransferase 15 IU/L (<50); Albumin 3.9 g/dL (3.5-5.0); Alkaline Phosphatase 105 U/L (38-126); Aspartate Aminotransferase 25 IU/L (17-59); BUN Creatinine Ratio 16.5 (6-22); Bilirubin Total 1.2 mg/dL (0.2-1.3); Blood Urea Nitrogen 23 mg/dL (9-20); Calcium 9.3 mg/dL (8.4-10.2); Carbon Dioxide 25 mmol/L (22-32); Chloride 108 mmol/L (98-107); Estimated Glomerular Filt Rate > 60 mL/min (>60); Ethanol (ETOH) < 10 mg/dL; Globulin 3.8 g/dL (1.7-4.1); Glucose 80 mg/dL (70-100); HEMOLYSIS < 15 (0-50); Potassium 3.2 mmol/L (3.4-5.1); Salicylate < 1.0 mg/dL (<20); Sodium 142 mmol/L (137-145); Total Protein 7.7 g/dL (6.3-8.2)
--- NOTE | 2023-02-13 10:32 | PC.NURSE ---
Pt sitting up in bed, lights dimmed. Pt is constantly asking for his and yelling to f-ing bring her here now! and Tell my to f-ing come and see me right now!. Pt laughing while medicating him, talking responding to people not present, hallucinating. Pt repeats I'm so strong, that medication you gave me wont calm me down! I'll still be standing when you come back. Pt endorses not wanting to hurt anyone I told God I wouldnt hurt anyone. Pt continues to be loud with frequent outbursts.
--- NOTE | 2023-02-13 10:43 | PC.NURSE ---
HOOK TENDER Note - Patient stating I'm gonna punch my fist through the wall if I don't get to see her. Referring to his . Patient also has included ramblings stating I'm gonna kiran this fing hospital. I know my rights. I'll tear this thing out of my fing arm and fing leave.
--- NOTE | 2023-02-13 10:50 | PC.NURSE ---
Pt talking to himself in room, saying Better stay away from me until I calm down a little and F-ing try to kill my , I dont think so!.
[2023-02-13 10:51] LABS: TSH w/ Reflex to FT4 1.16 uIU/mL (0.47-4.68)
== END 2023-02-13 11:24 | disposition home or self-care (01) ==
PROVIDERS: Emergency Provider Emergency Medicine; PCP Physician Assistant
DX: N18.9 Chronic kidney disease, unspecified (principal); Z53.8 Procedure and treatment not carried out for other reasons
CPT/HCPCS: 36415; 73030; 73130; 80053; 80320; 80329; 84443; 85025; 96374; 96375; 96376; 99284; G0480; J1885; J3360

== ENCOUNTER 2023-07-30 20:48 | Emergency (ER) | payer OTHER, MEDICAID, SELFPAY ==
[2020-11-08 15:33] VITALS: BMI 35.9
[2023-07-30 21:12] VITALS: BP 161/97; PULSE 73; RESP 16; TEMP 36.2; O2SAT 98; BMI 24.9
[2023-07-30 21:27] LABS: Appearance Urine UA CLEAR; Bilirubin Urine UA NEGATIVE (NEGATIVE); Color Urine UA YELLOW; Glucose Urine UA NEGATIVE (Negative); Ketones Urine UA NEGATIVE (NEGATIVE); Leukocyte Esterase Urine UA NEGATIVE (NEGATIVE); Nitrite Urine UA NEGATIVE (Negative); Occult Blood Urine UA NEGATIVE (Negative); Protein Urine UA NEGATIVE (Negative); Specific Gravity Urine UA 1.025 (1.000-1.035); Urobilinogen Urine UA 0.2 E.U./dL (0.2); pH Urine UA 5.5 (4.5-8.0)
[2023-07-30 21:33] LABS: UR Morphine/Opiate cutoff 300 Negative (Negative); Ur Creatinine Normal (Normal); Ur Specific Gravity Normal (Normal); Urine Amphetamines Negative (Negative); Urine Barbiturates Negative (Negative); Urine Benzodiazepines Negative (Negative); Urine Cocaine Negative (Negative); Urine MDMA Negative (Negative); Urine Methadone Negative (Negative); Urine Methamphetamines Negative (Negative); Urine Oxycodone Negative (Negative); Urine Phencyclidine Negative (Negative); Urine Tetrahydrocannabinol Positive (Negative); Urine Tricyclic Antidepressant Negative (Negative); Urine pH Normal (Normal)
[2023-07-30 21:38] LABS: Bacteria Urine None Seen; Culture Indicated Urine Cult Not Indicated; RBC Urine 0-1/HPF (0-5/HPF); Squamous Epithelial Cell Urine None Seen (0-5/HPF); Urine Volume 10mL (spun); WBC Urine None Seen (0-5/HPF)
[2023-07-30 22:07] LABS: Add Manual Diff / Slide Review NO; Basophils Absolute Auto 100 /uL (0-100); Basophils Percent Auto 1.1 % (0-2); Eosinophils Absolute Auto 200 /uL (0-450); Eosinophils Percent Auto 2.4 % (2-4); Hematocrit 40.5 % (41-53); Hemoglobin 13.6 g/dL (13.5-17.5); Lymphocytes Absolute Auto 1900 /uL (1100-4500); Mean Corpuscular HGB Conc 33.6 % (30-36); Mean Corpuscular Hemoglobin 28.7 PG (26-34); Mean Corpuscular Volume 85.5 fL (80-100); Monocytes Absolute Auto 700 /uL (0-900); Monocytes Percent Auto 7.4 % (3-14); Neutrophils Absolute Auto 6800 /uL (1500-7000); Neutrophils Percent Auto 70.1 % (50-75); Platelet Count 253 X10^3/uL (150-400); Red Blood Cell Count 4.74 X10^6/uL (4.5-5.9); Red Cell Distribution Width 14.6 % (11.6-14.8); White Blood Cell Count 9.8 X10^3/uL (4.5-11.0)
[2023-07-30 22:17] LABS: Acetaminophen < 10 ug/mL (10-30); Alanine Aminotransferase 64 IU/L (<50); Albumin 4.2 g/dL (3.5-5.0); Albumin Globulin Ratio 1.2 (1.0-2.8); Alkaline Phosphatase 84 U/L (38-126); Aspartate Aminotransferase 54 IU/L (17-59); BUN Creatinine Ratio 15.5 (6-22); Bilirubin Total 1.1 mg/dL (0.2-1.3); Blood Urea Nitrogen 16 mg/dL (9-20); Calcium 8.6 mg/dL (8.4-10.2); Carbon Dioxide 25 mmol/L (22-32); Chloride 110 mmol/L (98-107); Estimated Glomerular Filt Rate > 60 mL/min (>60); Ethanol (ETOH) < 10 mg/dL; Globulin 3.5 g/dL (1.7-4.1); Glucose 112 mg/dL (70-100); HEMOLYSIS < 15 (0-50); Potassium 3.8 mmol/L (3.4-5.1); Salicylate < 1.0 mg/dL (<20); Sodium 142 mmol/L (137-145); Total Protein 7.7 g/dL (6.3-8.2)
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
[2023-07-30 22:44] LABS: Free T4, Direct Thyroxine 1.12 ng/dL (0.78-2.19)
[2023-07-30 22:58] LABS: Thyroid Stimulating Hormone 2.81 uIU/mL (0.47-4.68)
--- NOTE | 2023-07-30 23:10 | ED_ITS ---
HPI - Psych <Kaushal Mar DO - Last Filed: 07/31/23 18:31> General Chief Complaint: Psychiatric Symptoms Stated Complaint: mental health eval Time Seen by Provider: 07/30/23 21:47 Source: patient Mode of arrival: Ambulatory History of Present Illness HPI Narrative: Patient is a 47-year-old male. Does not see a mental health provider on a regular basis although is on multiple mental health medications prescribed by his primary doctor. Somewhat difficult to obtain an exact HPI from the patient however patient states he contacted the police to bring him to the emergency department because thought that he was ?delusional? he states that the individual who he was living with was concerned that maybe he was ?delusional. He does admit that he is having both auditory and visual hallucinations. He states that he is having conversations with individuals who are not present. He has not suicidal. Not homicidal. Has been admitted to mental facility in the past. He states he has been taking all of his medications as directed although he did not take his medications today although the symptoms that he presents with today has been going on for at least 24 hours if not longer than that. He was here voluntarily. He is asking for help with his symptoms and would like to be admitted to the hospital. Related Data Home Medications Medication Instructions Recorded Confirmed buprenorphine 12 mg-naloxone 3 mg 1 film sublingual BID 11/09/20 04/05/22 sublingual film (Suboxone) clonazepam 0.5 mg tablet 1 mg PO BID 11/09/20 04/05/22 hydroxyzine HCl 50 mg tablet 50 mg PO BID 11/09/20 04/05/22 aripiprazole 5 mg tablet 2.5 mg PO BEDTIME 04/05/22 04/05/22 bupropion HCl 100 mg tablet 100 mg PO BID 04/05/22 04/05/22 prazosin 2 mg capsule 2 mg PO BEDTIME 04/05/22 04/05/22 venlafaxine 75 mg capsule,extended 75 mg PO DAILY 04/05/22 04/05/22 release 24 hr Allergies Allergy/AdvReac Type Severity Reaction Status Date / Time bee venom protein (honey bee) Allergy Verified 07/30/23 21:16 Review of Systems <DO Chelsi Singh Last Filed: 07/31/23 18:31> Cardiovascular Comments: Denies chest pain Respiratory Comments: Denies shortness of breath Gastrointestinal Comments: Denies abdominal Patient History <DO Chelsi Singh Last Filed: 07/31/23 18:31> Medical History Psychiatric disorder Depression Opioid use disorder ADHD Social History household members: spouse Smoking Status: Never smoker Smoking Status: Never smoker tobacco type: smokeless tobacco alcohol intake frequency: holidays/special occasions only Substance Use Type: marijuana and prescription drug Exam <DO Chelsi Singh Last Filed: 07/31/23 18:31> Initial Vital Signs Initial Vital Signs: Vital Signs Temperature 97.2 F L 07/30/23 21:12 Pulse Rate 73 07/30/23 21:12 Respiratory Rate 16 07/30/23 21:12 Blood Pressure 161/97 H 07/30/23 21:12 Pulse Oximetry 98 07/30/23 21:12 Oxygen Delivery Method Room Air 07/30/23 21:12 Const General: No ill appearing Chest Other: Discomfort the palpation right lower chest wall Resp Effort & Inspection: normal respiratory effort Cardio Rate: regular rate Skin General: no rashes or lesions noted Neuro General: patient alert and moves all extremities Psych Other: Patient is calm and cooperative <DO Chelsi Honeycutt Last Filed: 07/31/23 15:44> Initial Vital Signs Initial Vital Signs: Vital Signs Temperature 97.2 F L 07/30/23 21:12 Pulse Rate 73 07/30/23 21:12 Respiratory Rate 16 07/30/23 21:12 Blood Pressure 161/97 H 07/30/23 21:12 Pulse Oximetry 98 07/30/23 21:12 Oxygen Delivery Method Room Air 07/30/23 21:12 Course <DO Chelsi Singh Last Filed: 07/31/23 18:31> Orders Ordered: Discontinued Medications Citalopram Hydrobromide (Citalopram 10 Mg Tablet) 40 mg PO NOW ONE Stop: 07/31/23 08:38 Last Admin: 07/31/23 09:08 Dose: 40 mg Documented By: SPF Ibuprofen (Ibuprofen 400 Mg Tablet) 800 mg PO NOW ONE Stop: 07/31/23 08:10 Last Admin: 07/31/23 09:08 Dose: 800 mg Documented By: SPF Nicotine (Nicotine 14 Patch) 14 mg TOP NOW ONE Stop: 07/30/23 23:12 Last Admin: 07/30/23 23:45 Dose: 14 mg Documented By: BEVERLEY Olanzapine (Olanzapine Odt 10 Mg Tab) 10 mg PO NOW ONE Stop: 07/31/23 05:24 Last Admin: 07/31/23 05:27 Dose: 10 mg Documented By: BEVERLEY Olanzapine (Olanzapine Odt 10 Mg Tab) 10 mg PO NOW ONE Stop: 07/31/23 06:21 Last Admin: 07/31/23 06:35 Dose: 10 mg Documented By: BRANDI Vital Signs Vital signs: Vital Signs - 8 hr 07/31/23 12:25 07/31/23 13:08 Pulse Rate 54 L Respiratory Rate 18 16 Blood Pressure 128/69 Pulse Oximetry 99 Oxygen Delivery Method Room Air <Peg Hernandez DO - Last Filed: 07/31/23 15:44> Orders Ordered: Discontinued Medications Citalopram Hydrobromide (Citalopram 10 Mg Tablet) 40 mg PO NOW ONE Stop: 07/31/23 08:38 Last Admin: 07/31/23 09:08 Dose: 40 mg Documented By: ERNA Ibuprofen (Ibuprofen 400 Mg Tablet) 800 mg PO NOW ONE Stop: 07/31/23 08:10 Last Admin: 07/31/23 09:08 Dose: 800 mg Documented By: ERNA Nicotine (Nicotine 14 Patch) 14 mg TOP NOW ONE Stop: 07/30/23 23:12 Last Admin: 07/30/23 23:45 Dose: 14 mg Documented By: BEVRELEY Olanzapine (Olanzapine Odt 10 Mg Tab) 10 mg PO NOW ONE Stop: 07/31/23 05:24 Last Admin: 07/31/23 05:27 Dose: 10 mg Documented By: BEVERLEY Olanzapine (Olanzapine Odt 10 Mg Tab) 10 mg PO NOW ONE Stop: 07/31/23 06:21 Last Admin: 07/31/23 06:35 Dose: 10 mg Documented By: BRANDI Vital Signs Vital signs: Vital Signs - 8 hr 07/31/23 12:25 07/31/23 13:08 Pulse Rate 54 L Respiratory Rate 18 16 Blood Pressure 128/69 Pulse Oximetry 99 Oxygen Delivery Method Room Air MDM - Psych <Kaushal Mar DO - Last Filed: 07/31/23 18:31> Lab Data Attestation: I reviewed the patient's lab results. 07/30/23 21:45 07/30/23 21:45 Labs: Lab Results 07/30/23 07/30/23 07/30/23 Range/Units 21:24 21:24 21:45 WBC 9.8 (4.5-11.0) X10^3/uL RBC 4.74 (4.5-5.9) X10^6/uL Hgb 13.6 (13.5-17.5) g/dL Hct 40.5 L (41-53) % MCV 85.5 (80-100) fL MCH 28.7 (26-34) PG MCHC 33.6 (30-36) % RDW 14.6 (11.6-14.8) % Plt Count 253 (150-400) X10^3/uL Neut % (Auto) 70.1 (50-75) % Lymph % (Auto) 19.0 L (25-40) % [place] % (Auto) 7.4 (3-14) % Eos % (Auto) 2.4 (2-4) % Baso % (Auto) 1.1 (0-2) % Neut # (Auto) 6800 (0416-3533) /uL Lymph # (Auto) 1900 (8402-4108) /uL [place] # (Auto) 700 (0-900) /uL Eos # (Auto) 200 (0-450) /uL Baso # (Auto) 100 (0-100) /uL Sodium 142 (137-145) mmol/L Potassium 3.8 (3.4-5.1) mmol/L Chloride 110 H (98-107) mmol/L Carbon Dioxide 25 (22-32) mmol/L BUN 16 (9-20) mg/dL Creatinine 1.03 (0.66-1.25) mg/dL Estimated GFR > 60 (>60) mL/min BUN/Creatinine Ratio 15.5 (6-22) Glucose 112 H (70-100) mg/dL Calcium 8.6 (8.4-10.2) mg/dL Total Bilirubin 1.1 (0.2-1.3) mg/dL AST 54 (17-59) IU/L ALT 64 H (<50) IU/L Alkaline Phosphatase 84 (38-126) U/L Total Protein 7.7 (6.3-8.2) g/dL Albumin 4.2 (3.5-5.0) g/dL Globulin 3.5 (1.7-4.1) g/dL Albumin/Globulin Ratio 1.2 (1.0-2.8) TSH 2.81 (0.47-4.68) uIU/mL Free T4 1.12 (0.78-2.19) ng/dL Urine Color Yellow Urine Appearance Clear Urine pH 5.5 Normal (4.5-8.0) Ur Specific [place] 1.025 (1.000-1.035) Urine Protein Negative (Negative) Urine Glucose (UA) Negative (Negative) g/dL Urine Ketones Negative (NEGATIVE) Urine Occult Blood Negative (Negative) Urine Nitrate Negative (Negative) Urine Bilirubin Negative (NEGATIVE) Urine Urobilinogen 0.2 (0.2) E.U./dL Ur Leukocyte Esterase Negative (NEGATIVE) Urine RBC 0-1/hpf (0-5/HPF) Urine WBC None seen (0-5/HPF) Ur Squamous Epith Cells None seen (0-5/HPF) Urine Bacteria None seen (None) Ur Culture Indicated? Cult not indicated Vol Urine Centrifuged 10ml (spun) Salicylates < 1.0 (<20) mg/dL U Opiates 300ng/mL cut Negative (Negative) Ur Oxycodone Screen Negative (Negative) Urine Methadone Screen Negative (Negative) Acetaminophen < 10 (10-30) ug/mL Ur Barbiturates Screen Negative (Negative) U Tricyclic Antidepress Negative (Negative) Ur Phencyclidine Scrn Negative (Negative) Ur Amphetamines Screen Negative (Negative) U Methamphetamines Scrn Negative (Negative) Ur MDMA Scrn (Ecstasy) Negative (Negative) U Benzodiazepines Scrn Negative (Negative) Urine Cocaine Screen Negative (Negative) U Marijuana (THC) Screen Positive H (Negative) Urine Specific [place] Normal (Normal) Ethyl Alcohol < 10 ( - 10) mg/dL Ur Creatinine Normal (Normal) SARS-CoV-2 (PCR) (Negative) 07/31/23 Range/Units 08:53 WBC (4.5-11.0) X10^3/uL RBC (4.5-5.9) X10^6/uL Hgb (13.5-17.5) g/dL Hct (41-53) % MCV (80-100) fL MCH (26-34) PG MCHC (30-36) % RDW (11.6-14.8) % Plt Count (150-400) X10^3/uL Neut % (Auto) (50-75) % Lymph % (Auto) (25-40) % [place] % (Auto) (3-14) % Eos % (Auto) (2-4) % Baso % (Auto) (0-2) % Neut # (Auto) (6658-0715) /uL Lymph # (Auto) (3355-7285) /uL [place] # (Auto) (0-900) /uL Eos # (Auto) (0-450) /uL Baso # (Auto) (0-100) /uL Sodium (137-145) mmol/L Potassium (3.4-5.1) mmol/L Chloride (98-107) mmol/L Carbon Dioxide (22-32) mmol/L BUN (9-20) mg/dL Creatinine (0.66-1.25) mg/dL Estimated GFR (>60) mL/min BUN/Creatinine Ratio (6-22) Glucose (70-100) mg/dL Calcium (8.4-10.2) mg/dL Total Bilirubin (0.2-1.3) mg/dL AST (17-59) IU/L ALT (<50) IU/L Alkaline Phosphatase (38-126) U/L Total Protein (6.3-8.2) g/dL Albumin (3.5-5.0) g/dL Globulin (1.7-4.1) g/dL Albumin/Globulin Ratio (1.0-2.8) TSH (0.47-4.68) uIU/mL Free T4 (0.78-2.19) ng/dL Urine Color Urine Appearance Urine pH (4.5-8.0) Ur Specific [place] (1.000-1.035) Urine Protein (Negative) Urine Glucose (UA) (Negative) g/dL Urine Ketones (NEGATIVE) Urine Occult Blood (Negative) Urine Nitrate (Negative) Urine Bilirubin (NEGATIVE) Urine Urobilinogen (0.2) E.U./dL Ur Leukocyte Esterase (NEGATIVE) Urine RBC (0-5/HPF) Urine WBC (0-5/HPF) Ur Squamous Epith Cells (0-5/HPF) Urine Bacteria (None) Ur Culture Indicated? Vol Urine Centrifuged Salicylates (<20) mg/dL U Opiates 300ng/mL cut (Negative) Ur Oxycodone Screen (Negative) Urine Methadone Screen (Negative) Acetaminophen (10-30) ug/mL Ur Barbiturates Screen (Negative) U Tricyclic Antidepress (Negative) Ur Phencyclidine Scrn (Negative) Ur Amphetamines Screen (Negative) U Methamphetamines Scrn (Negative) Ur MDMA Scrn (Ecstasy) (Negative) U Benzodiazepines Scrn (Negative) Urine Cocaine Screen (Negative) U Marijuana (THC) Screen (Negative) Urine Specific [place] (Normal) Ethyl Alcohol ( - 10) mg/dL Ur Creatinine (Normal) SARS-CoV-2 (PCR) Negative (Negative) Imaging Data Rib x-ray: Radiologist's Impression: PROCEDURE: XR RIBS RT MIN 3V W CXR 1V INDICATIONS: right ribs pain after injury TECHNIQUE: Four views of the ribs were acquired, along with a single view chest. COMPARISON: None. FINDINGS: Surgical changes and devices: None. Bones and chest wall: There is a slight irregularity of the right lateral 6th rib arc. No other displaced fractures seen. No suspicious bone lesions. Lungs and pleura: No pleural effusions or pneumothorax. Lungs appear clear. Mediastinum: Mediastinal contours appear normal. Heart size is normal. IMPRESSION: Questionable right lateral 6th rib fracture of uncertain chronicity. Correlate with point tenderness. No radiographic evidence of underlying lung trauma. Extremity x-ray #1: Radiologist's Impression: PROCEDURE: XR HAND RT MIN 3V INDICATIONS: R hand pain after injury TECHNIQUE: 3 views of the hand(s) acquired. COMPARISON: [facility], , XR HAND RT MIN 3V, 02/13/2023, 10:21. FINDINGS: Bones: No fractures or dislocations. Carpal bones are normally aligned. No suspicious bony lesions. Soft tissues: No suspicious soft tissue calcifications. IMPRESSION: No acute bony abnormality. MDM Narrative Medical decision making narrative: Patient states he started to have discomfort to his right lower chest wall after bending over trying to pick something up. This happened a couple days ago. He was concerned that maybe he had broken a rib. Subsequently chest x-ray is unremarkable. He also states he is discomfort along the little finger side of his hand. This comes from ?punching things? he states this is actually been hurting him for several weeks as well. Subsequent x-ray shows no fractures. Patient is here voluntarily. He is calm. Not suicidal. Not homicidal but is having reported visual and auditory hallucinations. Patient is asking for help with placement for his symptoms. Patient is medically cleared. Will stay in the emergency department overnight with anticipation of evaluation by social work in the morning. Care turned over to day to continue to observe until disposition can be met. <Peg Hernandez, DO - Last Filed: 07/31/23 15:44> Lab Data Labs: Lab Results 07/30/23 07/30/23 07/30/23 Range/Units 21:24 21:24 21:45 WBC 9.8 (4.5-11.0) X10^3/uL RBC 4.74 (4.5-5.9) X10^6/uL Hgb 13.6 (13.5-17.5) g/dL Hct 40.5 L (41-53) % MCV 85.5 (80-100) fL MCH 28.7 (26-34) PG MCHC 33.6 (30-36) % RDW 14.6 (11.6-14.8) % Plt Count 253 (150-400) X10^3/uL Neut % (Auto) 70.1 (50-75) % Lymph % (Auto) 19.0 L (25-40) % [place] % (Auto) 7.4 (3-14) % Eos % (Auto) 2.4 (2-4) % Baso % (Auto) 1.1 (0-2) % Neut # (Auto) 6800 (7126-9378) /uL Lymph # (Auto) 1900 (7712-0551) /uL [place] # (Auto) 700 (0-900) /uL Eos # (Auto) 200 (0-450) /uL Baso # (Auto) 100 (0-100) /uL Sodium 142 (137-145) mmol/L Potassium 3.8 (3.4-5.1) mmol/L Chloride 110 H (98-107) mmol/L Carbon Dioxide 25 (22-32) mmol/L BUN 16 (9-20) mg/dL Creatinine 1.03 (0.66-1.25) mg/dL Estimated GFR > 60 (>60) mL/min BUN/Creatinine Ratio 15.5 (6-22) Glucose 112 H (70-100) mg/dL Calcium 8.6 (8.4-10.2) mg/dL Total Bilirubin 1.1 (0.2-1.3) mg/dL AST 54 (17-59) IU/L ALT 64 H (<50) IU/L Alkaline Phosphatase 84 (38-126) U/L Total Protein 7.7 (6.3-8.2) g/dL Albumin 4.2 (3.5-5.0) g/dL Globulin 3.5 (1.7-4.1) g/dL Albumin/Globulin Ratio 1.2 (1.0-2.8) TSH 2.81 (0.47-4.68) uIU/mL Free T4 1.12 (0.78-2.19) ng/dL Urine Color Yellow Urine Appearance Clear Urine pH 5.5 Normal (4.5-8.0) Ur Specific [place] 1.025 (1.000-1.035) Urine Protein Negative (Negative) Urine Glucose (UA) Negative (Negative) g/dL Urine Ketones Negative (NEGATIVE) Urine Occult Blood Negative (Negative) Urine Nitrate Negative (Negative) Urine Bilirubin Negative (NEGATIVE) Urine Urobilinogen 0.2 (0.2) E.U./dL Ur Leukocyte Esterase Negative (NEGATIVE) Urine RBC 0-1/hpf (0-5/HPF) Urine WBC None seen (0-5/HPF) Ur Squamous Epith Cells None seen (0-5/HPF) Urine Bacteria None seen (None) Ur Culture Indicated? Cult not indicated Vol Urine Centrifuged 10ml (spun) Salicylates < 1.0 (<20) mg/dL U Opiates 300ng/mL cut Negative (Negative) Ur Oxycodone Screen Negative (Negative) Urine Methadone Screen Negative (Negative) Acetaminophen < 10 (10-30) ug/mL Ur Barbiturates Screen Negative (Negative) U Tricyclic Antidepress Negative (Negative) Ur Phencyclidine Scrn Negative (Negative) Ur Amphetamines Screen Negative (Negative) U Methamphetamines Scrn Negative (Negative) Ur MDMA Scrn (Ecstasy) Negative (Negative) U Benzodiazepines Scrn Negative (Negative) Urine Cocaine Screen Negative (Negative) U Marijuana (THC) Screen Positive H (Negative) Urine Specific [place] Normal (Normal) Ethyl Alcohol < 10 ( - 10) mg/dL Ur Creatinine Normal (Normal) SARS-CoV-2 (PCR) (Negative) 07/31/23 Range/Units 08:53 WBC (4.5-11.0) X10^3/uL RBC (4.5-5.9) X10^6/uL Hgb (13.5-17.5) g/dL Hct (41-53) % MCV (80-100) fL MCH (26-34) PG MCHC (30-36) % RDW (11.6-14.8) % Plt Count (150-400) X10^3/uL Neut % (Auto) (50-75) % Lymph % (Auto) (25-40) % [place] % (Auto) (3-14) % Eos % (Auto) (2-4) % Baso % (Auto) (0-2) % Neut # (Auto) (3437-9623) /uL Lymph # (Auto) (8728-4876) /uL [place] # (Auto) (0-900) /uL Eos # (Auto) (0-450) /uL Baso # (Auto) (0-100) /uL Sodium (137-145) mmol/L Potassium (3.4-5.1) mmol/L Chloride (98-107) mmol/L Carbon Dioxide (22-32) mmol/L BUN (9-20) mg/dL Creatinine (0.66-1.25) mg/dL Estimated GFR (>60) mL/min BUN/Creatinine Ratio (6-22) Glucose (70-100) mg/dL Calcium (8.4-10.2) mg/dL Total Bilirubin (0.2-1.3) mg/dL AST (17-59) IU/L ALT (<50) IU/L Alkaline Phosphatase (38-126) U/L Total Protein (6.3-8.2) g/dL Albumin (3.5-5.0) g/dL Globulin (1.7-4.1) g/dL Albumin/Globulin Ratio (1.0-2.8) TSH (0.47-4.68) uIU/mL Free T4 (0.78-2.19) ng/dL Urine Color Urine Appearance Urine pH (4.5-8.0) Ur Specific [place] (1.000-1.035) Urine Protein (Negative) Urine Glucose (UA) (Negative) g/dL Urine Ketones (NEGATIVE) Urine Occult Blood (Negative) Urine Nitrate (Negative) Urine Bilirubin (NEGATIVE) Urine Urobilinogen (0.2) E.U./dL Ur Leukocyte Esterase (NEGATIVE) Urine RBC (0-5/HPF) Urine WBC (0-5/HPF) Ur Squamous Epith Cells (0-5/HPF) Urine Bacteria (None) Ur Culture Indicated? Vol Urine Centrifuged Salicylates (<20) mg/dL U Opiates 300ng/mL cut (Negative) Ur Oxycodone Screen (Negative) Urine Methadone Screen (Negative) Acetaminophen (10-30) ug/mL Ur Barbiturates Screen (Negative) U Tricyclic Antidepress (Negative) Ur Phencyclidine Scrn (Negative) Ur Amphetamines Screen (Negative) U Methamphetamines Scrn (Negative) Ur MDMA Scrn (Ecstasy) (Negative) U Benzodiazepines Scrn (Negative) Urine Cocaine Screen (Negative) U Marijuana (THC) Screen (Negative) Urine Specific [place] (Normal) Ethyl Alcohol ( - 10) mg/dL Ur Creatinine (Normal) SARS-CoV-2 (PCR) Negative (Negative) MDM Narrative Medical decision making narrative: Patient states he started to have discomfort to his right lower chest wall after bending over trying to pick something up. This happened a couple days ago. He was concerned that maybe he had broken a rib. Subsequently chest x-ray is unremarkable. He also states he is discomfort along the little finger side of his hand. This comes from ?punching things? he states this is actually been hurting him for several weeks as well. Subsequent x-ray shows no fractures. Patient is here voluntarily. He is calm. Not suicidal. Not homicidal but is having reported visual and auditory hallucinations. Patient is asking for help with placement for his symptoms. Patient is medically cleared. Will stay in the emergency department overnight with anticipation of evaluation by social work in the morning. Care turned over to day to continue to observe until disposition can be met. Dr. hernandez-patient signed out to me by Dr. Mar I have seen evaluated patient myself. Feels like he is paranoid that people are out to kill him. Feels safe in the emergency department. Is voluntary and would like mental health hospitalization. Patient is medically cleared Patient accepted at [facility] Discharge Plan Departure Patient Disposition: Xfer Psychiatric Hosp Clinical Impression: Hallucinations Prescriptions: No Action venlafaxine 75 mg capsule,extended release 24hr 75 mg PO DAILY prazosin 2 mg capsule 2 mg PO BEDTIME aripiprazole 5 mg tablet 2.5 mg PO BEDTIME bupropion HCl 100 mg tablet 100 mg PO BID buprenorphine-naloxone [Suboxone] 12-3 mg film 1 film sublingual BID clonazepam 0.5 mg Tablet 1 mg PO BID hydroxyzine HCl 50 mg Tablet 50 mg PO BID Referrals: Cathryn Flores PA-C [Primary Care Provider] -
--- NOTE | 2023-07-30 23:11 | DI.RAD.S_ITS ---
PROCEDURE: XR HAND RT MIN 3V INDICATIONS: R hand pain after injury TECHNIQUE: 3 views of the hand(s) acquired. COMPARISON: [facility], CR, XR HAND RT MIN 3V, 02/13/2023, 10:21. FINDINGS: Bones: No fractures or dislocations. Carpal bones are normally aligned. No suspicious bony lesions. Soft tissues: No suspicious soft tissue calcifications. IMPRESSION: No acute bony abnormality. Dictated by: Maria Elena Linares M.D. on 07/31/2023 at 0:45 Approved by: Maria Elena Linares M.D. on 07/31/2023 at 0:46
[2023-07-30] MEDS: NICOTINE 14 PATCH 14 MG TOP (23:45)
--- NOTE | 2023-07-31 04:01 | PC.NURSE ---
Pt appears to be talking in his sleep to auditory hallucinations. Pt states that someone is saying to him that he is On drugs. Pt mumbling under his breath unintelligibly. Chest rise and fall noted, no needs expressed, no distress noted .
[2023-07-31] MEDS: OLANZapine ODT 10 MG TAB PO ×2 (05:27→06:35)
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
[2023-07-31 08:00] VITALS: BP 127/69; PULSE 72; RESP 16; TEMP 37.6; O2SAT 99
--- NOTE | 2023-07-31 08:06 | PC.NURSE ---
Addendum entered by Maryellen Garcia CNA 07/31/23 08:21: 0817, [facility], spoke to intake, stated they have beds, sent packet Addendum entered by Maryellen Garcia CNA 07/31/23 08:13: 0810- [facility], spoke with Jesica, faxed packet Original Note: Facility call list for patient transfer 0732- [facility] [place] , spoke with Neha, faxed packet 0741- [facility], spoke with intake, stated currently full and to call back at noon [facility], faxed [facility] [id number]- [facility], spke with Rolanda, stated currently full, faxed packet
--- NOTE | 2023-07-31 08:48 | PC.NURSE ---
Addendum entered by Maryellen Garcia CNA 07/31/23 10:16: Covid results faxed to [facility]. Patient accepted and [facility] will be able to take patient in at 3pm. [facility] was called and has an estimated arrival time to [facility] ED at 1300. Original Note: [facility] behavioral accepting, PENDING covid result. [facility] accepting. --adelina arias RN fax [phone] covid result
[2023-07-31] MEDS: CITALOPRAM 10 MG TABLET 40 MG PO (09:08)
[2023-07-31] MEDS: IBUPROFEN 400 MG TABLET 800 MG PO (09:08)
[2023-07-31 09:16] LABS: COVID19 -Nasal RAPID Negative (Negative)
--- NOTE | 2023-07-31 11:31 | PC.NURSE ---
OCCUPATIONAL MEDICINE OFFICER note: Patient hasn't/hadn't touched breakfast. He placed breakfast container on the floor. Patient is sleeping supine with a stuffed animal in zip up sweatshirt on stomach.
[2023-07-31 12:25] VITALS: RESP 18
--- NOTE | 2023-07-31 12:47 | PC.NURSE ---
ALARM SIGNALER note: Family at bedside, gave patient a hug when family walked in.
[2023-07-31 13:08] VITALS: BP 128/69; PULSE 54; RESP 16; O2SAT 99
== END 2023-07-31 13:20 ==
PROVIDERS: Emergency Medicine; Emergency Provider Emergency Medicine; PCP Physician Assistant
DX: R44.3 Hallucinations, unspecified (principal); R07.9 Chest pain, unspecified
CPT/HCPCS: 71101; 73130; 80053; 80305; 80320; 80329; 81001; 84439; 84443; 85025; 87635; 99284; G0480